=== PATIENT | male | born 1975 | race Two or more races ===

== ENCOUNTER 2018-09-19 12:24 | Inpatient (IN) | payer OTHER, BC ==
[2018-09-19] MEDS ORDERED: Ondansetron 4 MG/2 ML SDV IVPUSH ONE (12:31)
[2018-09-19] MEDS ORDERED: Sodium Chloride 0.9% 2.5 ML Syringe FLUSH PRN (12:31)
[2018-09-19] MEDS ORDERED: HYDROmorphone 2 MG/ML Syringe IVPUSH ONE ×2 (12:31→14:28)
[2018-09-19] MEDS ORDERED: Sodium Chloride 0.9% 10 ML Syringe FLUSH PRN (12:31)
[2018-09-19] MEDS ORDERED: diazePAM 5 MG/ML MDV IV ONE (12:38)
[2018-09-19 13:46] LABS: CHLORIDE,CL 103 mmol/L (98-107); SODIUM,NA 141 mmol/L (136-148)
--- NOTE | 2018-09-19 13:47 | CT ---
EXAMINATION: Non contrast CT head. Coronal and sagittal reformats. HISTORY: Pain FINDINGS: No evidence of intra or extra axial hemorrhage, mass, midline shift, hydrocephalus or edema. No hypoattenuation changes in the major vascular territories to suggest acute infarct. No abnormal intracranial calcifications are detected. No evidence of substantial vascular calcifications. Paranasal sinuses and mastoid air cells are well aerated without substantial findings. Pituitary fossa appears unremarkable. Orbits and globes are symmetric. Calvarium is intact. No evidence of skull fracture. IMPRESSION: No acute intracranial findings.
--- NOTE | 2018-09-19 13:49 | CT ---
EXAMINATION: CT cervical spine HISTORY: Pain COMPARISON: None TECHNIQUE: Axial CT imaging obtained through the cervical spine without contrast. Coronal and sagittal reconstructions obtained. FINDINGS: The cervical spinal alignment is normal. The vertebral body heights and disc spaces appear well-maintained. Bone mineralization is normal. No fracture or acute osseous abnormality. The lung apices are clear paravertebral soft tissues are normal. IMPRESSION: 1. No acute cervical spinal abnormality.
--- NOTE | 2018-09-19 13:50 | CR ---
EXAMINATION: Portable chest radiograph. HISTORY: Shortness of breath. FINDINGS: The trachea is midline. The cardiomediastinal silhouette is within normal limits. No pulmonary infiltrates, effusions or pneumothorax. Mild bibasilar atelectasis. Osseous structures appear unremarkable. IMPRESSION: No acute cardiopulmonary process.
[2018-09-19] MEDS ORDERED: HYDROmorphone 1 MG/ML Syringe ONE ×2 (13:55→15:25)
[2018-09-19] MEDS ORDERED: HYDROmorphone 1 MG/ML Syringe IVPUSH ONE ×2 (13:59→15:26)
--- NOTE | 2018-09-19 14:13 | EDM.PDOC ---
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 He remembers the incident and does not think he lost consciousness. Abrasion over his right eye and severe pain over his right hip. He denies any chest pain or abdominal pain. Review of systems: As per history of present illness and below otherwise all systems reviewed and negative. Past medical history: As per history of present illness and as reviewed below otherwise noncontributory. Surgical history: As per history of present illness and as reviewed below otherwise noncontributory. Social history: No reported history of drug or alcohol abuse. Family history: As per history of present illness and as reviewed below otherwise noncontributory. Physical exam: General: Well developed, well nourished in NAD patient on a backboard laying left side down HEENT: superficial laceration over right eyebrow, normocephalic, pupils reactive , negative for conjunctival pallor or scleral icterus, mucous membranes moist, throat clear, neck supple, nontender, trachea midline. Lungs: Clear to auscultation, breath sounds equal bilaterally, chest nontender. Heart: S1S2, regular, negative for clicks, rubs, or JVD. Abdomen: NABS, Soft, nondistended, nontender. Negative for masses or hepatosplenomegaly. Negative for costovertebral tenderness. Pelvis: Stable nontender. Genitourinary: Deferred. Rectal: Deferred. Extremities: Tenderness of right hip with any movement, distal pulses are palpable, right wrist mild tenderness and swellling, negative for cords or calf pain. Neurovascular unremarkable. Neuro: Awake, alert, oriented. Cranial nerves II through XII unremarkable. Cerebellum unremarkable. Motor and sensory unremarkable throughout. Exam nonfocal. Skin:warm and dry Diagnostics: X-ray chest, pelvis, r femur, right hip, right wrist, CT head and neck, CBC, chemistry, UA Therapeutics: Dilaudid, Valium ED Course: Stable Impression: fall, Right hip fracture, facial laceration, right wrist fracture Prescriptions: Plan: admit to Dr. Vazquez for trauma, Dr. Issa also notified and will treat. Definitive disposition and diagnosis as appropriate pending reevaluation and review of above. Treatments PUBLICITY PERSON: Reports: IV/IO, Other (see below) Other Treatments PUBLICITY PERSON: 50mcg IV Fentanyl Right Hand, Right upper leg Pain Score (Numeric/FACES): 10 - Related Data Allergies Allergy/AdvReac Type Severity Reaction Status Date / Time No Known Allergies Allergy Verified 09/19/18 12:31 Home Meds: Home Meds . [No Known Home Meds] 12/25/13 [History] Past Medical History - Past Health History Medical/Surgical History: Denies Medical/Surgical History - Infectious Disease History Infectious Disease History: Reports: None Social & Family History - Family History Family Medical History: Noncontributory - Tobacco Use Smoking Status *Q: Former Smoker Years of Tobacco use: 30 Packs/Tins Daily: 1 Used Tobacco, but Quit: Yes Month/Year Tobacco Last Used: 3 months ago - Recreational Drug Use Recreational Drug Use: No Review of Systems - Review of Systems Review Of Systems: ROS reveals no pertinent complaints other than HPI. ED EXAM, GENERAL - Physical Exam Exam: See Below (See history of present illness) Course - Vital Signs Last Recorded V/S: Last Vital Signs Temp 97.2 F 09/19/18 17:59 Pulse 110 H 09/19/18 18:39 Resp 16 09/19/18 18:39 BP 128/68 09/19/18 18:39 Pulse Ox 96 09/19/18 18:39 - Orders/Labs/Meds Orders: Active Orders 24 hr Category Date Time Status Activity as Tolerated [RC] .Routine Care 09/19/18 15:07 Active Antiembolic Devices [RC] PER UNIT ROUTINE Care 09/19/18 15:07 Active Cardiac Monitoring [RC] . DIRECTED Care 09/19/18 12:33 Active Intake and Output [RC] ASDIRECTED Care 09/19/18 15:02 Active Neurovascular Check [RC] Q4HR Care 09/19/18 15:02 Active Notify Provider Vital Signs [RC] ASDIRECTED Care 09/19/18 15:07 Active Vital Signs [RC] Q4H Care 09/19/18 15:02 Active PT Evaluation and Treatment [CONS] Routine Cons 09/20/18 09:00 Active HEMOGLOBIN/HEMATOCRIT,HH [HEME] AM Lab 09/20/18 05:11 Ordered HEMOGLOBIN/HEMATOCRIT,HH [HEME] AM Lab 09/21/18 05:11 Ordered UA W/MICROSCOPIC [URIN] Stat Lab 09/19/18 12:35 Ordered Acetaminophen/HYDROcodone [Portia 325-10 MG] Med 09/19/18 15:07 Active 1 - 2 tab PO Q4H PRN Docusate Sodium [Colace] Med 09/19/18 21:00 Active 100 mg PO BID HYDROmorphone [Dilaudid] Med 09/19/18 15:07 Active 0.5 - 1 mg IVPUSH Q3H PRN Ketorolac [Toradol] Med 09/19/18 15:15 Active 30 mg IVPUSH Q6H Lactated Ringers [Ringers, Lactated] 1,000 ml Med 09/19/18 15:15 Active IV ASDIRECTED Lactated Ringers [Ringers, Lactated] 1,000 ml Med 09/19/18 15:30 Active IV ASDIRECTED Ondansetron [Zofran] Med 09/19/18 15:07 Active 4 mg IV Q8HR PRN Sodium Chloride 0.9% [Saline Flush] Med 09/19/18 12:31 Active 10 ml FLUSH ASDIRECTED PRN Sodium Chloride 0.9% [Saline Flush] Med 09/19/18 12:31 Active 2.5 ml FLUSH ASDIRECTED PRN Antiembolic Hose [OM.PC] Routine Oth 09/19/18 15:02 Ordered Ice Therapy [OM.PC] Routine Oth 09/19/18 15:02 Ordered Obtain Home Medication List [OM.PC] Routine Oth 09/19/18 15:02 Ordered Saline Lock Insert [OM.PC] Stat Oth 09/19/18 12:31 Ordered Sequential Compression Device [OM.PC] Routine Oth 09/19/18 15:02 Ordered Medication Orders Hydrocodone Bitart/Acetaminophen (Portia 325-10 Mg) 1 - 2 tab PO Q4H PRN PRN Reason: Pain Docusate Sodium (Colace) 100 mg PO BID JOSE Fentanyl (Sublimaze) 50 mcg IVPUSH Q5M PRN PRN Reason: Pain (severe 7-10) Stop: 09/20/18 18:02 Hydromorphone HCl (Dilaudid) 0.5 - 1 mg IVPUSH Q3H PRN PRN Reason: Pain Lactated Ringer's (Ringers, Lactated) 1,000 mls @ 125 mls/hr IV ASDIRECTED [facility] Last Admin: 09/19/18 15:36 Dose: 125 mls/hr Lactated Ringer's (Ringers, Lactated) 1,000 mls @ 125 mls/hr IV ASDIRECTED [facility] Cefazolin Sodium/Dextrose 2 gm (/ Premix) 50 mls @ 100 mls/hr IV Q8HR [facility] Stop: 09/20/18 06:29 Ketorolac Tromethamine (Toradol) 30 mg IVPUSH Q6H [facility] Last Admin: 09/19/18 15:38 Dose: Ondansetron HCl (Zofran) 4 mg IV Q8HR PRN PRN Reason: NAUSEA/VOMITING Sodium Chloride (Saline Flush) 10 ml FLUSH ASDIRECTED PRN PRN Reason: Keep Vein Open Last Admin: 09/19/18 12:43 Dose: 10 ml Sodium Chloride (Saline Flush) 2.5 ml FLUSH ASDIRECTED PRN PRN Reason: Keep Vein Open Last Admin: 09/19/18 12:43 Dose: 2.5 ml Labs: Laboratory Tests 09/19/18 09/19/18 Range/Units 12:42 12:42 WBC 10.37 (4.0-11.0) K/uL RBC 4.87 (4.50-5.90) M/uL Hgb 14.9 (13.0-17.0) g/dL Hct 43.1 (38.0-50.0) % MCV 88.5 (80.0-98.0) fL MCH 30.6 (27.0-32.0) pg MCHC 34.6 (31.0-37.0) g/dL RDW Std Deviation 39.8 (28.0-62.0) fl RDW Coeff of Demetrius 13 (11.0-15.0) % Plt Count 176 (150-400) K/uL MPV 10.20 (7.40-12.00) fL Add Manual Diff YES Neutrophils % (Manual) 49 (48.0-80.0) % Band Neutrophils % 1 % Lymphocytes % (Manual) 40 (16.0-40.0) % Monocytes % (Manual) 8 (0.0-15.0) % Eosinophils % (Manual) 1 (0.0-7.0) % Myelocytes % 1 % Nucleated RBC % 0.0 /100WBC Absolute Seg Neuts 5.1 (1.4-5.7) Band Neutrophils # 0.1 Lymphocytes # (Manual) 4.1 H (0.6-2.4) Monocytes # (Manual) 0.8 (0.0-0.8) Eosinophils # (Manual) 0.1 (0.0-0.7) Absolute Myelocytes 0.1 Nucleated RBCs # 0 K/uL Sodium 141 (136-148) mmol/L Potassium 3.8 (3.5-5.1) mmol/L Chloride 103 (98-107) mmol/L Carbon Dioxide 25.2 (21.0-32.0) mmol/L BUN 13 (7.0-18.0) mg/dL Creatinine 0.9 (0.8-1.3) mg/dL Est Cr Clr Drug Dosing 109.27 mL/min Estimated GFR (MDRD) > 60.0 ml/min Glucose 98 (74-106) mg/dL Calcium 8.7 (8.5-10.1) mg/dL Total Bilirubin 0.6 (0.2-1.0) mg/dL AST 44 H (15-37) IU/L ALT 88 H (14-63) IU/L Alkaline Phosphatase 43 L (46-116) U/L Total Protein 7.0 (6.4-8.2) g/dL Albumin 4.1 (3.4-5.0) g/dL Globulin 2.9 (2.6-4.0) g/dL Albumin/Globulin Ratio 1.4 (0.9-1.6) Meds: Medications Generic Name Dose Route Start Last Admin Trade Name Freq PRN Reason Stop Dose Admin Hydrocodone Bitart/Acetaminophen 1 - 2 tab 09/19/18 15:07 Portia 325-10 Mg PO Q4H PRN Pain Docusate Sodium 100 mg 09/19/18 21:00 Colace PO BID JOSE Fentanyl 50 mcg 09/19/18 18:02 Sublimaze IVPUSH 09/20/18 18:02 Q5M PRN Pain (severe 7-10) Hydromorphone HCl 0.5 - 1 mg 05/06/19 15:07 Dilaudid IVPUSH Q3H PRN Pain Lactated Ringer's 1,000 mls @ 125 mls/hr 09/19/18 15:15 09/19/18 15:36 Ringers, Lactated IV 125 mls/hr ASDIRECTED JOSE Administration Lactated Ringer's 1,000 mls @ 125 mls/hr 09/19/18 15:30 Ringers, Lactated IV ASDIRECTED JOSE Cefazolin Sodium/Dextrose 2 gm 50 mls @ 100 mls/hr 09/19/18 21:00 / Premix IV 09/20/18 06:29 Q8HR JOSE Ketorolac Tromethamine 30 mg 09/19/18 15:15 09/19/18 15:38 Toradol IVPUSH Not Given Q6H JOSE Ondansetron HCl 4 mg 09/19/18 15:07 Zofran IV Q8HR PRN NAUSEA/VOMITING Sodium Chloride 10 ml 09/19/18 12:31 09/19/18 12:43 Saline Flush FLUSH 10 ml ASDIRECTED PRN Administration Keep Vein Open Sodium Chloride 2.5 ml 09/19/18 12:31 09/19/18 12:43 Saline Flush FLUSH 2.5 ml ASDIRECTED PRN Administration Keep Vein Open Discontinued Medications Generic Name Dose Route Start Last Admin Trade Name Freq PRN Reason Stop Dose Admin Diazepam 5 mg 09/19/18 12:38 09/19/18 12:45 Valium IV 09/19/18 12:39 5 mg ONETIME ONE Administration Fentanyl Confirm 09/19/18 15:06 Sublimaze Administered 09/19/18 15:07 Dose 250 mcg .ROUTE .STK-MED ONE Hydromorphone HCl 1 mg 09/19/18 12:31 09/19/18 12:39 Dilaudid IVPUSH 09/19/18 12:32 1 mg ONETIME ONE Administration Hydromorphone HCl Confirm 09/19/18 13:55 09/19/18 14:00 Dilaudid Administered 09/19/18 13:56 Not Given Dose 1 mg .ROUTE .STK-MED ONE Hydromorphone HCl 1 mg 09/19/18 13:59 09/19/18 14:00 Dilaudid IVPUSH 09/19/18 14:00 1 mg ONETIME ONE Administration Hydromorphone HCl 1 mg 09/19/18 14:28 09/19/18 14:35 Dilaudid IVPUSH 09/19/18 14:29 1 mg ONETIME ONE Administration Hydromorphone HCl 1 mg 09/19/18 15:26 09/19/18 15:30 Dilaudid IVPUSH 09/19/18 15:27 1 mg ONETIME ONE Administration Hydromorphone HCl Confirm 09/19/18 15:25 09/19/18 15:37 Dilaudid Administered 09/19/18 15:26 Not Given Dose 1 mg .ROUTE .STK-MED ONE Lidocaine HCl Confirm 09/19/18 14:51 09/19/18 15:38 Xylocaine-Mpf 1% Administered 09/19/18 14:52 Not Given Dose 5 mls @ as directed .ROUTE .STK-MED ONE Cefazolin Sodium/Dextrose 2 gm 50 mls @ 100 mls/hr 09/19/18 15:07 09/19/18 15 :32 / Premix IV 09/19/18 15:36 100 mls/hr ONETIME ONE Administration Cefazolin Sodium/Dextrose 2 gm 50 mls @ 100 mls/hr 09/19/18 22:00 / Premix IV 09/20/18 14:29 Q8HR JOSE Lidocaine Confirm 09/19/18 15:05 Xylocaine-Mpf 2% Administered 09/19/18 15:06 Dose 5 ml .ROUTE .STK-MED ONE Lidocaine HCl 10 ml 09/19/18 14:51 09/19/18 15:23 Xylocaine-Mpf 1% INJECT 09/19/18 14:52 10 ml ONETIME ONE Administration Midazolam HCl Confirm 09/19/18 15:06 Versed 1 Mg/Ml Administered 09/19/18 15:07 Dose 2 mg .ROUTE .STK-MED ONE Ondansetron HCl 4 mg 09/19/18 12:31 09/19/18 12:39 Zofran IVPUSH 09/19/18 12:32 4 mg ONETIME ONE Administration Ondansetron HCl Confirm 09/19/18 15:05 Zofran Administered 09/19/18 15:06 Dose 4 mg .ROUTE .STK-MED ONE Phenylephrine HCl Confirm 09/19/18 16:29 Phenylephrine In Ns 100 Mcg/Ml Administered 09/19/18 16:30 Dose 1 mg .ROUTE .STK-MED ONE Propofol Confirm 09/19/18 15:06 Diprivan 20 Ml Administered 09/19/18 15:07 Dose 200 mg .ROUTE .STK-MED ONE Rocuronium [place] Confirm 09/19/18 15:05 Zemuron Administered 09/19/18 15:06 Dose 100 mg .ROUTE .STK-MED ONE Succinylcholine Chloride Confirm 09/19/18 15:05 Succinylcholine Chloride Administered 09/19/18 15:06 Dose 200 mg .ROUTE .STK-MED ONE Departure - Departure Time of Disposition: 19:12 Disposition: Admitted As Inpatient 66 Condition: Good Clinical Impression: Hip fracture Qualifiers: Encounter type: initial encounter Fracture type: closed Laterality: right Qualified Code(s): S72.001A - Fracture of unspecified part of neck of right femur, initial encounter for closed fracture Right wrist fracture Qualifiers: Encounter type: initial encounter Fracture type: closed Qualified Code(s): S62.101A - Fracture of unspecified carpal bone, right wrist, initial encounter for closed fracture Closed right femoral fracture Qualifiers: Encounter type: initial encounter Femur location: intertrochanteric Fracture alignment: displaced Qualified Code(s): S72.141A - Displaced intertrochanteric fracture of right femur, initial encounter for closed fracture - Discharge Information *PRESCRIPTION DRUG MONITORING PROGRAM REVIEWED*: No *COPY OF PRESCRIPTION DRUG MONITORING REPORT IN PATIENT PADMINI: No - My Orders Last 24 Hours: My Active Orders 09/19/18 12:31 Sodium Chloride 0.9% [Saline Flush] 10 ml FLUSH ASDIRECTED PRN Sodium Chloride 0.9% [Saline Flush] 2.5 ml FLUSH ASDIRECTED PRN Saline Lock Insert [OM.PC] Stat 09/19/18 12:33 Cardiac Monitoring [RC] . DIRECTED 09/19/18 12:35 UA W/MICROSCOPIC [URIN] Stat - Assessment/Plan Last 24 Hours: My Active Orders 09/19/18 12:31 Sodium Chloride 0.9% [Saline Flush] 10 ml FLUSH ASDIRECTED PRN Sodium Chloride 0.9% [Saline Flush] 2.5 ml FLUSH ASDIRECTED PRN Saline Lock Insert [OM.PC] Stat 09/19/18 12:33 Cardiac Monitoring [RC] . DIRECTED 09/19/18 12:35 UA W/MICROSCOPIC [URIN] Stat
--- NOTE | 2018-09-19 14:37 | CR ---
EXAMINATION: Pelvis and right femur HISTORY: Fall COMPARISON: None TECHNIQUE: AP pelvis and single view of the right femur FINDINGS: There is an impacted proximal right femur fracture noted within the intertrochanteric component. Possible small avulsed greater trochanteric component as well. The right hip joint space is grossly preserved. SI joints are symmetric. The iliopectineal lines are intact. Bone mineralization is otherwise normal. IMPRESSION: 1. Impacted proximal right femur fracture extending from the proximal diaphysis into the intertrochanteric region.
--- NOTE | 2018-09-19 14:41 | EDM.PDOC ---
ED HPI GENERAL MEDICAL PROBLEM - General Source of Information: Reports: Patient History Limitations: Reports: No Limitations, Language Barrier (Patient is from [place] and does speak estonian but is a little limited. ) - History of Present Illness Onset: Today, Sudden Duration: Hour(s):, Other (Constant pain in right femur. ) Location: Reports: Face, Upper Extremity, Right, Lower Extremity, Right Quality: Reports: Sharp, Stabbing Severity: Severe Worsens with: Reports: Movement Context: Reports: Trauma Associated Symptoms: Reports: Other (Pain to right wrist and left hand) Treatments CLINICAL ADMISSIONS MANAGER: Reports: IV/IO, Other (see below) Other Treatments CLINICAL ADMISSIONS MANAGER: 50mcg IV Fentanyl Right Hand, Right upper leg Pain Score (Numeric/FACES): 5 - General Chief Complaint: Trauma Stated Complaint: FELL FROM 6FT+ Time Seen by Provider: 09/19/18 12:27 - History of Present Illness INITIAL COMMENTS - FREE TEXT/NARRATIVE: History of present illness: []Patient fell 8-12 feet at work 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 He remembers the incident and does not think he lost consciousness. Abrasion over his right eye and severe pain over his right hip. He denies any chest pain or abdominal pain. Review of systems: As per history of present illness and below otherwise all systems reviewed and negative. Past medical history: As per history of present illness and as reviewed below otherwise noncontributory. Surgical history: As per history of present illness and as reviewed below otherwise noncontributory. Social history: No reported history of drug or alcohol abuse. Family history: As per history of present illness and as reviewed below otherwise noncontributory. Physical exam: General: Well developed, well nourished in NAD patient on a backboard laying left side down HEENT: Abrasion over right eyebrow, normocephalic, pupils reactive, negative for conjunctival pallor or scleral icterus, mucous membranes moist, throat clear , neck supple, nontender, trachea midline. Lungs: Clear to auscultation, breath sounds equal bilaterally, chest nontender. Heart: S1S2, regular, negative for clicks, rubs, or JVD. Abdomen: NABS, Soft, nondistended, nontender. Negative for masses or hepatosplenomegaly. Negative for costovertebral tenderness. Pelvis: Stable nontender. Genitourinary: Deferred. Rectal: Deferred. Extremities: Tenderness of right hip with any movement, distal pulses are palpable, negative for cords or calf pain. Neurovascular unremarkable. Neuro: Awake, alert, oriented. Cranial nerves II through XII unremarkable. Cerebellum unremarkable. Motor and sensory unremarkable throughout. Exam nonfocal. Skin:warm and dry Diagnostics: X-ray chest, pelvis, femur, right hip, CT head and neck, CBC, chemistry, UA Therapeutics: Dilaudid, Valium ED Course: Stable Impression: fall, Right hip fracture, facial abrasions Prescriptions: Plan: It to Dr. Vazquez for trauma, Dr. Issa also notified and will treat. Definitive disposition and diagnosis as appropriate pending reevaluation and review of above. (River Marcos Jr) - Related Data Allergies Allergy/AdvReac Type Severity Reaction Status Date / Time No Known Allergies Allergy Verified 09/19/18 12:31 Home Meds: Home Meds . [No Known Home Meds] 12/25/13 [History] Past Medical History - Past Health History Medical/Surgical History: Denies Medical/Surgical History (Patient and deny any past medcial diagnoses or conditions other than GERD and left knee pain intermittently.) - Infectious Disease History Infectious Disease History: Reports: None Social & Family History - Family History Family Medical History: Noncontributory - Tobacco Use Smoking Status *Q: Former Smoker (Quit smoking 3 months ago.) Years of Tobacco use: 30 Packs/Tins Daily: 1 Used Tobacco, but Quit: Yes Month/Year Tobacco Last Used: 3 months ago - Alcohol Use Alcohol Use Frequency: Not Used in Over 2 Months - Recreational Drug Use Recreational Drug Use: No Drug Use in Last 12 Months: No - Living Situation & Occupation 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) Review of Systems - Review of Systems Review Of Systems: See Below Constitutional: Reports: No Symptoms Respiratory: Reports: No Symptoms Cardiovascular: Reports: No Symptoms Genitourinary: Reports: No Symptoms Musculoskeletal: Reports: Other (tenderness to left knee intermittently) Skin: Reports: Other (Laceration to right eyebrow) Neurological: Reports: No Symptoms ED EXAM, GENERAL - Physical Exam Exam: See Below Exam Limited By: No Limitations General Appearance: Alert, Moderate Distress Ears: Normal External Exam, Hearing Grossly Normal Nose: Normal Inspection Throat/Mouth: No Airway Compromise Head: Other (Laceration to right eyebrow approximately 2-3 cm.) Neck: Supple, Non-Tender Respiratory/Chest: No Respiratory Distress, Lungs Clear Cardiovascular: Normal Peripheral Pulses, Regular Rate, Rhythm Peripheral Pulses: 2+: Radial (L), Radial (R), Dorsalis Pedis (L), Dorsalis Pedis (R) GI/Abdominal: Soft, Non-Tender, No Distention Extremities: Other (Tenderness to right wrist with active ROM and palpation. No obvious deformity. Swelling around the right proximal heip but no ecchymosis or open wounds.. Other extremities on left side are atraumatic in appearance. 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 He remembers the incident and does not think he lost consciousness. Abrasion over his right eye and severe pain over his right hip. He denies any chest pain or abdominal pain. Review of systems: As per history of present illness and below otherwise all systems reviewed and negative. Past medical history: As per history of present illness and as reviewed below otherwise noncontributory. Surgical history: As per history of present illness and as reviewed below otherwise noncontributory. Social history: No reported history of drug or alcohol abuse. Family history: As per history of present illness and as reviewed below otherwise noncontributory. Physical exam: General: Well developed, well nourished in NAD patient on a backboard laying left side down HEENT: Abrasion over right eyebrow, normocephalic, pupils reactive, negative for conjunctival pallor or scleral icterus, mucous membranes moist, throat clear , neck supple, nontender, trachea midline. Lungs: Clear to auscultation, breath sounds equal bilaterally, chest nontender. Heart: S1S2, regular, negative for clicks, rubs, or JVD. Abdomen: NABS, Soft, nondistended, nontender. Negative for masses or hepatosplenomegaly. Negative for costovertebral tenderness. Pelvis: Stable nontender. Genitourinary: Deferred. Rectal: Deferred. Extremities: Tenderness of right hip with any movement, distal pulses are palpable, negative for cords or calf pain. Neurovascular unremarkable. Neuro: Awake, alert, oriented. Cranial nerves II through XII unremarkable. Cerebellum unremarkable. Motor and sensory unremarkable throughout. Exam nonfocal. Skin:warm and dry Diagnostics: X-ray chest, pelvis, femur, right hip, CT head and neck, CBC, chemistry, UA Therapeutics: Dilaudid, Valium ED Course: Stable Impression: fall, Right hip fracture, facial abrasions Prescriptions: Plan: It to Dr. Vazquez for trauma, Dr. Issa also notified and will treat. Definitive disposition and diagnosis as appropriate pending reevaluation and review of above. (River Marcos Jr) - Vital Signs Last Recorded V/S: Last Vital Signs Temp 98.7 F 09/19/18 12:26 Pulse 96 09/19/18 12:26 Resp 18 09/19/18 12:26 BP 137/77 09/19/18 12:26 Pulse Ox 96 09/19/18 12:26 - Orders/Labs/Meds Orders: Active Orders 24 hr Category Date Time Status Activity as Tolerated [RC] .Routine Care 09/19/18 15:07 Ordered Antiembolic Devices [RC] PER UNIT ROUTINE Care 09/19/18 15:07 Ordered Cardiac Monitoring [RC] . DIRECTED Care 09/19/18 12:33 Active Intake and Output [RC] ASDIRECTED Care 09/19/18 15:02 Ordered Neurovascular Check [RC] Q4HR Care 09/19/18 15:02 Ordered Notify Provider Vital Signs [RC] ASDIRECTED Care 09/19/18 15:07 Ordered Vital Signs [RC] Q4H Care 09/19/18 15:02 Ordered PT Evaluation and Treatment [CONS] Routine Cons 09/20/18 09:00 Active Regular Diet [DIET] Diet 09/19/18 Dinner Active HEMOGLOBIN/HEMATOCRIT,HH [HEME] AM Lab 09/20/18 05:11 Ordered HEMOGLOBIN/HEMATOCRIT,HH [HEME] AM Lab 09/21/18 05:11 Ordered UA W/MICROSCOPIC [URIN] Stat Lab 09/19/18 12:35 Ordered Acetaminophen/HYDROcodone [[place] 325-10 MG] Med 09/19/18 15:07 Ordered 1 - 2 tab PO Q4H PRN Docusate Sodium [Colace] Med 09/19/18 21:00 Ordered 100 mg PO BID HYDROmorphone [Dilaudid] Med 09/19/18 15:07 Ordered 0.5 - 1 mg IVPUSH Q3H PRN Ketorolac [Toradol] Med 09/19/18 15:15 Ordered 30 mg IVPUSH Q6H Lactated Ringers @ 125 MLS/HR(1000ml) Med 09/19/18 15:15 Ordered Lactated Ringers [Ringers, Lactated] 1,000 ml IV ASDIRECTED Ondansetron [Zofran] Med 09/19/18 15:07 Ordered 4 mg IV Q8HR PRN Sodium Chloride 0.9% [Saline Flush] Med 09/19/18 12:31 Active 10 ml FLUSH ASDIRECTED PRN Sodium Chloride 0.9% [Saline Flush] Med 09/19/18 12:31 Active 2.5 ml FLUSH ASDIRECTED PRN ceFAZolin [Ancef] 2 gm Med 09/19/18 15:07 Ordered Premix Bag 1 bag IV ONETIME ceFAZolin [Ancef] 2 gm Med 09/19/18 22:00 Ordered Premix Bag 1 bag IV Q8HR Antiembolic Hose [OM.PC] Routine Oth 09/19/18 15:02 Ordered Ice Therapy [OM.PC] Routine Oth 09/19/18 15:02 Ordered Obtain Home Medication List [OM.PC] Routine Oth 09/19/18 15:02 Ordered Saline Lock Insert [OM.PC] Stat Oth 09/19/18 12:31 Ordered Sequential Compression Device [OM.PC] Routine Oth 09/19/18 15:02 Ordered Medication Orders Hydrocodone Bitart/Acetaminophen ([place] 325-10 Mg) 1 - 2 tab PO Q4H PRN PRN Reason: Pain Docusate Sodium (Colace) 100 mg PO BID JOSE Hydromorphone HCl (Dilaudid) 0.5 - 1 mg IVPUSH Q3H PRN PRN Reason: Pain Cefazolin Sodium/Dextrose 2 gm (/ Premix) 50 mls @ 100 mls/hr IV ONETIME ONE Stop: 09/19/18 15:36 Cefazolin Sodium/Dextrose 2 gm (/ Premix) 50 mls @ 100 mls/hr IV Q8HR JOSE Stop: 09/20/18 14:29 Lactated Ringer's (Ringers, Lactated) 1,000 mls @ 125 mls/hr IV ASDIRECTED JOSE Ketorolac Tromethamine (Toradol) 30 mg IVPUSH Q6H JOSE Ondansetron HCl (Zofran) 4 mg IV Q8HR PRN PRN Reason: NAUSEA/VOMITING Sodium Chloride (Saline Flush) 10 ml FLUSH ASDIRECTED PRN PRN Reason: Keep Vein Open Last Admin: 09/19/18 12:43 Dose: 10 ml Sodium Chloride (Saline Flush) 2.5 ml FLUSH ASDIRECTED PRN PRN Reason: Keep Vein Open Last Admin: 09/19/18 12:43 Dose: 2.5 ml Labs: Laboratory Tests 09/19/18 09/19/18 Range/Units 12:42 12:42 WBC 10.37 (4.0-11.0) K/uL RBC 4.87 (4.50-5.90) M/uL Hgb 14.9 (13.0-17.0) g/dL Hct 43.1 (38.0-50.0) % MCV 88.5 (80.0-98.0) fL MCH 30.6 (27.0-32.0) pg MCHC 34.6 (31.0-37.0) g/dL RDW Std Deviation 39.8 (28.0-62.0) fl RDW Coeff of Demetrius 13 (11.0-15.0) % Plt Count 176 (150-400) K/uL MPV 10.20 (7.40-12.00) fL Add Manual Diff YES Neutrophils % (Manual) 49 (48.0-80.0) % Band Neutrophils % 1 % Lymphocytes % (Manual) 40 (16.0-40.0) % Monocytes % (Manual) 8 (0.0-15.0) % Eosinophils % (Manual) 1 (0.0-7.0) % Myelocytes % 1 % Nucleated RBC % 0.0 /100WBC Absolute Seg Neuts 5.1 (1.4-5.7) Band Neutrophils # 0.1 Lymphocytes # (Manual) 4.1 H (0.6-2.4) Monocytes # (Manual) 0.8 (0.0-0.8) Eosinophils # (Manual) 0.1 (0.0-0.7) Absolute Myelocytes 0.1 Nucleated RBCs # 0 K/uL Sodium 141 (136-148) mmol/L Potassium 3.8 (3.5-5.1) mmol/L Chloride 103 (98-107) mmol/L Carbon Dioxide 25.2 (21.0-32.0) mmol/L BUN 13 (7.0-18.0) mg/dL Creatinine 0.9 (0.8-1.3) mg/dL Est Cr Clr Drug Dosing 109.27 mL/min Estimated GFR (MDRD) > 60.0 ml/min Glucose 98 (74-106) mg/dL Calcium 8.7 (8.5-10.1) mg/dL Total Bilirubin 0.6 (0.2-1.0) mg/dL AST 44 H (15-37) IU/L ALT 88 H (14-63) IU/L Alkaline Phosphatase 43 L (46-116) U/L Total Protein 7.0 (6.4-8.2) g/dL Albumin 4.1 (3.4-5.0) g/dL Globulin 2.9 (2.6-4.0) g/dL Albumin/Globulin Ratio 1.4 (0.9-1.6) Meds: Medications Generic Name Dose Route Start Last Admin Trade Name Freq PRN Reason Stop Dose Admin Hydrocodone Bitart/Acetaminophen 1 - 2 tab 09/19/18 15:07 [place] 325-10 Mg PO Q4H PRN Pain Docusate Sodium 100 mg 09/19/18 21:00 Colace PO BID JOSE Hydromorphone HCl 0.5 - 1 mg 09/19/18 15:07 Dilaudid IVPUSH Q3H PRN Pain Cefazolin Sodium/Dextrose 2 gm 50 mls @ 100 mls/hr 09/19/18 15:07 / Premix IV 09/19/18 15:36 ONETIME ONE Cefazolin Sodium/Dextrose 2 gm 50 mls @ 100 mls/hr 09/19/18 22:00 / Premix IV 09/20/18 14:29 Q8HR JOSE Lactated Ringer's 1,000 mls @ 125 mls/hr 09/19/18 15:15 Ringers, Lactated IV ASDIRECTED JOSE Ketorolac Tromethamine 30 mg 09/19/18 15:15 Toradol IVPUSH Q6H JOSE Ondansetron HCl 4 mg 09/19/18 15:07 Zofran IV Q8HR PRN NAUSEA/VOMITING Sodium Chloride 10 ml 09/19/18 12:31 09/19/18 12:43 Saline Flush FLUSH 10 ml ASDIRECTED PRN Administration Keep Vein Open Sodium Chloride 2.5 ml 09/19/18 12:31 09/19/18 12:43 Saline Flush FLUSH 2.5 ml ASDIRECTED PRN Administration Keep Vein Open Discontinued Medications Generic Name Dose Route Start Last Admin Trade Name Freq PRN Reason Stop Dose Admin Diazepam 5 mg 09/19/18 12:38 09/19/18 12:45 Valium IV 09/19/18 12:39 5 mg ONETIME ONE Administration Fentanyl Confirm 09/19/18 15:06 Sublimaze Administered 09/19/18 15:07 Dose 250 mcg .ROUTE .STK-MED ONE Hydromorphone HCl 1 mg 09/19/18 12:31 09/19/18 12:39 Dilaudid IVPUSH 09/19/18 12:32 1 mg ONETIME ONE Administration Hydromorphone HCl Confirm 09/19/18 13:55 09/19/18 14:00 Dilaudid Administered 09/19/18 13:56 Not Given Dose 1 mg .ROUTE .STK-MED ONE Hydromorphone HCl 1 mg 09/19/18 13:59 09/19/18 14:00 Dilaudid IVPUSH 09/19/18 14:00 1 mg ONETIME ONE Administration Hydromorphone HCl 1 mg 09/19/18 14:28 09/19/18 14:35 Dilaudid IVPUSH 09/19/18 14:29 1 mg ONETIME ONE Administration Lidocaine HCl Confirm 09/19/18 14:51 Xylocaine-Mpf 1% Administered 09/19/18 14:52 Dose 5 mls @ as directed .ROUTE .STK-MED ONE Lidocaine Confirm 09/19/18 15:05 Xylocaine-Mpf 2% Administered 09/19/18 15:06 Dose 5 ml .ROUTE .STK-MED ONE Lidocaine HCl 10 ml 09/19/18 14:51 Xylocaine-Mpf 1% INJECT 09/19/18 14:52 ONETIME ONE Midazolam HCl Confirm 09/19/18 15:06 Versed 1 Mg/Ml Administered 09/19/18 15:07 Dose 2 mg .ROUTE .STK-MED ONE Ondansetron HCl 4 mg 09/19/18 12:31 09/19/18 12:39 Zofran IVPUSH 09/19/18 12:32 4 mg ONETIME ONE Administration Ondansetron HCl Confirm 09/19/18 15:05 Zofran Administered 09/19/18 15:06 Dose 4 mg .ROUTE .STK-MED ONE Propofol Confirm 09/19/18 15:06 Diprivan 20 Ml Administered 09/19/18 15:07 Dose 200 mg .ROUTE .STK-MED ONE Rocuronium [place] Confirm 09/19/18 15:05 Zemuron Administered 09/19/18 15:06 Dose 100 mg .ROUTE .STK-MED ONE Succinylcholine Chloride Confirm 09/19/18 15:05 Succinylcholine Chloride Administered 09/19/18 15:06 Dose 200 mg .ROUTE .STK-MED ONE Departure - Departure Time of Disposition: 15:06 - Departure Disposition: Home, Self-Care 01 Clinical Impression: Hip fracture Qualifiers: Encounter type: initial encounter Fracture type: closed Laterality: right Qualified Code(s): S72.001A - Fracture of unspecified part of neck of right femur, initial encounter for closed fracture Right wrist fracture Qualifiers: Encounter type: initial encounter Fracture type: closed Qualified Code(s): S62.101A - Fracture of unspecified carpal bone, right wrist, initial encounter for closed fracture - Problem List & Annotations (1) Right wrist fracture SNOMED Code(s): 739053398, 655919264 Code(s): S62.101A - FRACTURE OF UNSP CARPAL BONE, RIGHT WRIST, INIT FOR CLOS FX Status: Acute Priority: Medium Current Visit: Yes Qualifiers: Encounter type: initial encounter Fracture type: closed Qualified Code(s) : S62.101A - Fracture of unspecified carpal bone, right wrist, initial encounter for closed fracture (2) Hip fracture SNOMED Code(s): 918692288 Code(s): S72.009A - FRACTURE OF UNSP PART OF NECK OF UNSP FEMUR, INIT Status: Acute Priority: High Current Visit: Yes Qualifiers: Encounter type: initial encounter Fracture type: closed Laterality: right Qualified Code(s): S72.001A - Fracture of unspecified part of neck of right femur, initial encounter for closed fracture - Assessment/Plan Admission H&P: Please use this note as an admission H&P (Use as a consult note for Orthopedic Surgery not an admission H&P.) - My Orders Last 24 Hours: My Active Orders 09/19/18 15:02 Intake and Output [RC] ASDIRECTED Neurovascular Check [RC] Q4HR Vital Signs [RC] Q4H Antiembolic Hose [OM.PC] Routine Ice Therapy [OM.PC] Routine Obtain Home Medication List [OM.PC] Routine Sequential Compression Device [OM.PC] Routine 09/19/18 15:07 Activity as Tolerated [RC] .Routine Antiembolic Devices [RC] PER UNIT ROUTINE Notify Provider Vital Signs [RC] ASDIRECTED Acetaminophen/HYDROcodone [[place] 325-10 MG] 1 - 2 tab PO Q4H PRN HYDROmorphone [Dilaudid] 0.5 - 1 mg IVPUSH Q3H PRN Ondansetron [Zofran] 4 mg IV Q8HR PRN ceFAZolin [Ancef] 2 gm Premix Bag 1 bag IV ONETIME 09/19/18 15:15 Ketorolac [Toradol] 30 mg IVPUSH Q6H Lactated Ringers @ 125 MLS/HR(1000ml) Lactated Ringers [Ringers, Lactated] 1, 000 ml IV ASDIRECTED 09/19/18 21:00 Docusate Sodium [Colace] 100 mg PO BID 09/19/18 22:00 ceFAZolin [Ancef] 2 gm Premix Bag 1 bag IV Q8HR 09/19/18 Dinner Regular Diet [DIET] 09/20/18 05:11 HEMOGLOBIN/HEMATOCRIT,HH [HEME] AM 09/20/18 09:00 PT Evaluation and Treatment [CONS] Routine 09/21/18 05:11 HEMOGLOBIN/HEMATOCRIT,HH [HEME] AM - Assessment/Plan Last 24 Hours: My Active Orders 09/19/18 15:02 Intake and Output [RC] ASDIRECTED Neurovascular Check [RC] Q4HR Vital Signs [RC] Q4H Antiembolic Hose [OM.PC] Routine Ice Therapy [OM.PC] Routine Obtain Home Medication List [OM.PC] Routine Sequential Compression Device [OM.PC] Routine 09/19/18 15:07 Activity as Tolerated [RC] .Routine Antiembolic Devices [RC] PER UNIT ROUTINE Notify Provider Vital Signs [RC] ASDIRECTED Acetaminophen/HYDROcodone [[place] 325-10 MG] 1 - 2 tab PO Q4H PRN HYDROmorphone [Dilaudid] 0.5 - 1 mg IVPUSH Q3H PRN Ondansetron [Zofran] 4 mg IV Q8HR PRN ceFAZolin [Ancef] 2 gm Premix Bag 1 bag IV ONETIME 09/19/18 15:15 Ketorolac [Toradol] 30 mg IVPUSH Q6H Lactated Ringers @ 125 MLS/HR(1000ml) Lactated Ringers [Ringers, Lactated] 1, 000 ml IV ASDIRECTED 09/19/18 21:00 Docusate Sodium [Colace] 100 mg PO BID 09/19/18 22:00 ceFAZolin [Ancef] 2 gm Premix Bag 1 bag IV Q8HR 09/19/18 Dinner Regular Diet [DIET] 09/20/18 05:11 HEMOGLOBIN/HEMATOCRIT,HH [HEME] AM 09/20/18 09:00 PT Evaluation and Treatment [CONS] Routine 09/21/18 05:11 HEMOGLOBIN/HEMATOCRIT,HH [HEME] AM Plan: Patient will be admitted to the trauma service. We will proceed with repair of his right hip fracture today in the OR. He will be able to begin ambulating post operatively. We will obtain a CT scan of his right wrist fracture tomorrow. (River Marcos Jr) 2033 Patient seen and examined. Note above incorporates ED note by Dr. Fernandes along with ortho consult note by Dr. Marcos. Agree with above. Plan for surgical treatment of R femur tonight along with closure of eyebrow laceration R. See my short note for full details. rrk (Lakeshia Issa)
--- NOTE | 2018-09-19 14:49 | CR ---
EXAMINATION: Right wrist HISTORY: Fall COMPARISON: None TECHNIQUE: 3 views FINDINGS/IMPRESSION: There is a nondisplaced intra-articular distal radius fracture identified. There is also a mid right scaphoid fracture noted, nondisplaced. Remaining osseous structures and joint spaces are intact.
--- NOTE | 2018-09-19 14:52 | PCM.SN ---
- Free Text/Narrative Note: Patient seen and examined. For complete history/physical, please refer to the note by Christiano Marcos, PGY-2. He did have a fall of approximately 10 feet earlier today, landing on his right side. X-rays were reviewed which do show a comminuted subtrochanteric fracture of the right femur. I discussed treatment options with the patient and his family. I'm recommending that he undergo closed reduction of the right femur with insertion of intramedullary nail. Procedure and postoperative course was discussed. He also has a deep laceration over the right eye in the eyebrow region. I recommended that he undergo closure of that at the time of surgery as well. Risks of the procedures were discussed which include, but are not limited to, infection, neurovascular injury, stiffness, continued pain, blood clots, need for future surgery, and anesthetic complications. Patient seems to understand these risks and would like to proceed with surgery. Will plan on scheduling it later today. He will also be evaluated by the trauma service. XR of R wrist also reviewed. Show a nondisplaced intra-articular fracture of the distal radius and probable nondisplaced fracture of the scaphoid. Will splint in OR and plan for CT of R wrist tomorrow to evaluate.
[2018-09-19] MEDS ORDERED: Ondansetron 4 MG/2 ML SDV ONE (15:05)
[2018-09-19] MEDS ORDERED: Lidocaine 2% 5 ML SDV ONE (15:05)
[2018-09-19] MEDS ORDERED: Rocuronium 100 MG/10 ML Syringe ONE (15:05)
[2018-09-19] MEDS ORDERED: Propofol 200 MG/20 ML SDV ONE (15:06)
[2018-09-19] MEDS ORDERED: Midazolam 1 MG/ML 2 ML SDV ONE (15:06)
[2018-09-19] MEDS ORDERED: fentaNYL 250 MCG/5 ML SDV ONE (15:06)
[2018-09-19] MEDS ORDERED: ceFAZolin 2 GM in Premix Bag 1 BAG IV ONE (15:07)
[2018-09-19] MEDS ORDERED: Lactated Ringers 1,000 ML IV SCH ×2 (15:15→15:30)
--- NOTE | 2018-09-19 15:26 | PCM.HP ---
H&P History of Present Illness - General Date of Service: 09/19/18 Admit Problem/Dx: Admission Diagnosis/Problem Admission Diagnosis/Problem Replacement of total knee joint Source of Information: Patient History Limitations: Reports: No Limitations - History of Present Illness Initial Comments - Free Text/Narative: Patient is a 43 year old male who fell today at work ~ 10-12 feet onto his right side. There was no LOC. He was brought to the ER c/o right wrist and leg pain. On physical exam his right leg was slightly shorter. He denies any other symptoms. He is otherwise healthy with no surgical history. Right Hand, Right upper leg Pain Score (Numeric/FACES): 5 - Related Data Allergies/Adverse Reactions: Allergies Allergy/AdvReac Type Severity Reaction Status Date / Time No Known Allergies Allergy Verified 09/19/18 12:31 Home Medications: Home Meds . [No Known Home Meds] 12/25/13 [History] Past Medical History - Past Health History Medical/Surgical History: Denies Medical/Surgical History (Patient and deny any past medcial diagnoses or conditions other than GERD and left knee pain intermittently.) - Infectious Disease History Infectious Disease History: Reports: None Social & Family History - Family History Family Medical History: Noncontributory - Tobacco Use Smoking Status *Q: Former Smoker (Quit smoking 3 months ago.) Years of Tobacco use: 30 Packs/Tins Daily: 1 Used Tobacco, but Quit: Yes Month/Year Tobacco Last Used: 3 months ago - Recreational Drug Use Recreational Drug Use: No Drug Use in Last 12 Months: No - Living Situation & Occupation 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) H&P Review of Systems - Review of Systems: Review Of Systems: See Below General: Reports: No Symptoms HEENT: Reports: No Symptoms Pulmonary: Reports: No Symptoms Cardiovascular: Reports: No Symptoms Gastrointestinal: Reports: No Symptoms Genitourinary: Reports: No Symptoms Musculoskeletal: Reports: Leg Pain, Joint Pain (right wrist ) Skin: Reports: Other (laceration to right brow) Psychiatric: Reports: No Symptoms Neurological: Reports: No Symptoms Hematologic/Lymphatic: Reports: No Symptoms Exam - Exam Exam: See Below - Vital Signs Vital Signs: Last Vital Signs Temp 37.1 C 09/19/18 12:26 Pulse 96 09/19/18 12:26 Resp 18 09/19/18 12:26 BP 137/77 09/19/18 12:26 Pulse Ox 96 09/19/18 12:26 Weight: 90.718 kg - Exam General: Alert, Oriented, Cooperative HEENT: Conjunctiva Clear, EACs Clear, EOMI, Hearing Intact, Mucosa Moist & [place] , Nares Patent, Normal Nasal Septum, Posterior Pharynx Clear, Pupils Equal, Pupils Reactive, Other (Complex laceration to right lateral brow ), PERRLA Neck: Supple, Trachea Midline Lungs: Clear to Auscultation, Normal Respiratory Effort Cardiovascular: Regular Rate, Regular Rhythm GI/Abdominal Exam: Soft, Non-Tender, No Organomegaly, No Distention, No Abnormal Bruit, No Mass, Pelvis Stable (Male) Exam: Normal Inspection Rectal (Males) Exam: Deferred Back Exam: Normal Inspection, Full Range of Motion Extremities: Joint Swelling (right wrist ), Other (pain along lateral aspect of right thigh. Right leg is slightly shortened. ) Skin: Warm, Dry, Intact Neurological: Cranial Nerves Intact, Reflexes Equal Bilateral Neuro Extensive - Mental Status: Alert, Oriented x3, Normal Mood/Affect, Normal Cognition Neuro Extensive - Motor, Sensory, Reflexes: Normal Gait, Normal Reflexes Psychiatric: Alert, Normal Affect, Normal Mood - Patient Data Lab Results Last 24 hrs: Laboratory Results - last 24 hr 09/19/18 09/19/18 Range/Units 12:42 12:42 WBC 10.37 (4.0-11.0) K/uL RBC 4.87 (4.50-5.90) M/uL Hgb 14.9 (13.0-17.0) g/dL Hct 43.1 (38.0-50.0) % MCV 88.5 (80.0-98.0) fL MCH 30.6 (27.0-32.0) pg MCHC 34.6 (31.0-37.0) g/dL RDW Std Deviation 39.8 (28.0-62.0) fl RDW Coeff of Demetrius 13 (11.0-15.0) % Plt Count 176 (150-400) K/uL MPV 10.20 (7.40-12.00) fL Add Manual Diff YES Neutrophils % (Manual) 49 (48.0-80.0) % Band Neutrophils % 1 % Lymphocytes % (Manual) 40 (16.0-40.0) % Monocytes % (Manual) 8 (0.0-15.0) % Eosinophils % (Manual) 1 (0.0-7.0) % Myelocytes % 1 % Nucleated RBC % 0.0 /100WBC Absolute Seg Neuts 5.1 (1.4-5.7) Band Neutrophils # 0.1 Lymphocytes # (Manual) 4.1 H (0.6-2.4) Monocytes # (Manual) 0.8 (0.0-0.8) Eosinophils # (Manual) 0.1 (0.0-0.7) Absolute Myelocytes 0.1 Nucleated RBCs # 0 K/uL Sodium 141 (136-148) mmol/L Potassium 3.8 (3.5-5.1) mmol/L Chloride 103 (98-107) mmol/L Carbon Dioxide 25.2 (21.0-32.0) mmol/L BUN 13 (7.0-18.0) mg/dL Creatinine 0.9 (0.8-1.3) mg/dL Est Cr Clr Drug Dosing 109.27 mL/min Estimated GFR (MDRD) > 60.0 ml/min Glucose 98 (74-106) mg/dL Calcium 8.7 (8.5-10.1) mg/dL Total Bilirubin 0.6 (0.2-1.0) mg/dL AST 44 H (15-37) IU/L ALT 88 H (14-63) IU/L Alkaline Phosphatase 43 L (46-116) U/L Total Protein 7.0 (6.4-8.2) g/dL Albumin 4.1 (3.4-5.0) g/dL Globulin 2.9 (2.6-4.0) g/dL Albumin/Globulin Ratio 1.4 (0.9-1.6) Result Diagrams: 09/19/18 12:42 09/19/18 12:42 Problem List Initiated/Reviewed/Updated: Yes Orders Last 24hrs: Active Orders 24 hr Category Date Time Status Activity as Tolerated [RC] .Routine Care 09/19/18 15:07 Active Antiembolic Devices [RC] PER UNIT ROUTINE Care 09/19/18 15:07 Active Cardiac Monitoring [RC] . DIRECTED Care 09/19/18 12:33 Active Intake and Output [RC] ASDIRECTED Care 09/19/18 15:02 Active Neurovascular Check [RC] Q4HR Care 09/19/18 15:02 Active Notify Provider Vital Signs [RC] ASDIRECTED Care 09/19/18 15:07 Active Vital Signs [RC] Q4H Care 09/19/18 15:02 Active PT Evaluation and Treatment [CONS] Routine Cons 09/20/18 09:00 Active Regular Diet [DIET] Diet 09/19/18 Dinner Active HEMOGLOBIN/HEMATOCRIT,HH [HEME] AM Lab 09/20/18 05:11 Ordered HEMOGLOBIN/HEMATOCRIT,HH [HEME] AM Lab 09/21/18 05:11 Ordered UA W/MICROSCOPIC [URIN] Stat Lab 09/19/18 12:35 Ordered Acetaminophen/HYDROcodone [Volga 325-10 MG] Med 09/19/18 15:07 Active 1 - 2 tab PO Q4H PRN Docusate Sodium [Colace] Med 09/19/18 21:00 Active 100 mg PO BID HYDROmorphone [Dilaudid] Med 09/19/18 15:07 Active 0.5 - 1 mg IVPUSH Q3H PRN Ketorolac [Toradol] Med 09/19/18 15:15 Active 30 mg IVPUSH Q6H Lactated Ringers [Ringers, Lactated] 1,000 ml Med 09/19/18 15:15 Active IV ASDIRECTED Ondansetron [Zofran] Med 09/19/18 15:07 Active 4 mg IV Q8HR PRN Sodium Chloride 0.9% [Saline Flush] Med 09/19/18 12:31 Active 10 ml FLUSH ASDIRECTED PRN Sodium Chloride 0.9% [Saline Flush] Med 09/19/18 12:31 Active 2.5 ml FLUSH ASDIRECTED PRN ceFAZolin [Ancef] 2 gm Med 09/19/18 15:07 Active Premix Bag 1 bag IV ONETIME ceFAZolin [Ancef] 2 gm Med 09/19/18 22:00 Active Premix Bag 1 bag IV Q8HR Antiembolic Hose [OM.PC] Routine Oth 09/19/18 15:02 Ordered Ice Therapy [OM.PC] Routine Oth 09/19/18 15:02 Ordered Obtain Home Medication List [OM.PC] Routine Oth 09/19/18 15:02 Ordered Saline Lock Insert [OM.PC] Stat Oth 09/19/18 12:31 Ordered Sequential Compression Device [OM.PC] Routine Oth 09/19/18 15:02 Ordered Medication Orders Hydrocodone Bitart/Acetaminophen ([place] 325-10 Mg) 1 - 2 tab PO Q4H PRN PRN Reason: Pain Docusate Sodium (Colace) 100 mg PO BID JOSE Hydromorphone HCl (Dilaudid) 0.5 - 1 mg IVPUSH Q3H PRN PRN Reason: Pain Cefazolin Sodium/Dextrose 2 gm (/ Premix) 50 mls @ 100 mls/hr IV ONETIME ONE Stop: 09/19/18 15:36 Cefazolin Sodium/Dextrose 2 gm (/ Premix) 50 mls @ 100 mls/hr IV Q8HR JOSE Stop: 09/20/18 14:29 Lactated Ringer's (Ringers, Lactated) 1,000 mls @ 125 mls/hr IV ASDIRECTED JOSE Ketorolac Tromethamine (Toradol) 30 mg IVPUSH Q6H JOSE Ondansetron HCl (Zofran) 4 mg IV Q8HR PRN PRN Reason: NAUSEA/VOMITING Sodium Chloride (Saline Flush) 10 ml FLUSH ASDIRECTED PRN PRN Reason: Keep Vein Open Last Admin: 09/19/18 12:43 Dose: 10 ml Sodium Chloride (Saline Flush) 2.5 ml FLUSH ASDIRECTED PRN PRN Reason: Keep Vein Open Last Admin: 09/19/18 12:43 Dose: 2.5 ml Assessment/Plan Comment:: The patient had a normal CXR and pelvis XR. His head and neck CT were normal. Spines were cleared. I repaired his right brow laceration. He has a non- displaced intra-articular distal radius fracture and a non-displaced mid right scaphoid fracture. He has a proximal right femur fracture. Orthopedics has been consulted and will take the patient to surgery today. Will admit to my service and perform a secondary exam tomorrow. NPO until surgery.
[2018-09-19] MEDS: Ketorolac 30 MG/ML SDV IVPUSH SCH ×2 (15:38→20:45)
--- NOTE | 2018-09-19 15:59 | PCM.PREANE ---
Preanesthetic Assessment - Anesthesia/Transfusion/Family Hx Anesthesia History: Prior Anesthesia Without Reaction Family History of Anesthesia Reaction: No Intubation History: Unknown - Review of Systems General: No Symptoms Pulmonary: No Symptoms Cardiovascular: No Symptoms Gastrointestinal: No Symptoms Neurological: No Symptoms Other: Reports: None - Physical Assessment O2 Sat by Pulse Oximetry: 98 Respiratory Rate: 16 Vital Signs: Last Vital Signs Temp 37.1 C 09/19/18 12:26 Pulse 70 09/19/18 14:00 Resp 16 09/19/18 14:00 BP 126/75 09/19/18 14:00 Pulse Ox 98 09/19/18 14:00 Height: 1.78 m Weight: 90.718 kg ASA Class: 2E Mental Status: Alert & Oriented x3 Airway Class: Mallampati = 2 Dentition: Reports: Normal Dentition Thyro-Mental Finger Breadths: 3 Mouth Opening Finger Breadths: 2 ROM/Head Extension: Full Lungs: Clear to Auscultation, Normal Respiratory Effort Cardiovascular: Regular Rate, Regular Rhythm - Lab Values: Laboratory Last Values WBC 10.37 K/uL (4.0-11.0) 09/19/18 12:42 RBC 4.87 M/uL (4.50-5.90) 09/19/18 12:42 Hgb 14.9 g/dL (13.0-17.0) 09/19/18 12:42 Hct 43.1 % (38.0-50.0) 09/19/18 12:42 MCV 88.5 fL (80.0-98.0) 09/19/18 12:42 MCH 30.6 pg (27.0-32.0) 09/19/18 12:42 MCHC 34.6 g/dL (31.0-37.0) 09/19/18 12:42 RDW Std Deviation 39.8 fl (28.0-62.0) 09/19/18 12:42 RDW Coeff of Demetrius 13 % (11.0-15.0) 09/19/18 12:42 Plt Count 176 K/uL (150-400) 09/19/18 12:42 MPV 10.20 fL (7.40-12.00) 09/19/18 12:42 Add Manual Diff YES 09/19/18 12:42 Neutrophils % (Manual) 49 % (48.0-80.0) 09/19/18 12:42 Band Neutrophils % 1 % 09/19/18 12:42 Lymphocytes % (Manual) 40 % (16.0-40.0) 09/19/18 12:42 Monocytes % (Manual) 8 % (0.0-15.0) 09/19/18 12:42 Eosinophils % (Manual) 1 % (0.0-7.0) 09/19/18 12:42 Myelocytes % 1 % 09/19/18 12:42 Nucleated RBC % 0.0 /100WBC 09/19/18 12:42 Absolute Seg Neuts 5.1 (1.4-5.7) 09/19/18 12:42 Band Neutrophils # 0.1 09/19/18 12:42 Lymphocytes # (Manual) 4.1 (0.6-2.4) H 09/19/18 12:42 Monocytes # (Manual) 0.8 (0.0-0.8) 09/19/18 12:42 Eosinophils # (Manual) 0.1 (0.0-0.7) 09/19/18 12:42 Absolute Myelocytes 0.1 09/19/18 12:42 Nucleated RBCs # 0 K/uL 09/19/18 12:42 Sodium 141 mmol/L (136-148) 09/19/18 12:42 Potassium 3.8 mmol/L (3.5-5.1) 09/19/18 12:42 Chloride 103 mmol/L (98-107) 09/19/18 12:42 Carbon Dioxide 25.2 mmol/L (21.0-32.0) 09/19/18 12:42 BUN 13 mg/dL (7.0-18.0) 09/19/18 12:42 Creatinine 0.9 mg/dL (0.8-1.3) 09/19/18 12:42 Est Cr Clr Drug Dosing 109.27 mL/min 09/19/18 12:42 Estimated GFR (MDRD) > 60.0 ml/min 09/19/18 12:42 Glucose 98 mg/dL (74-106) 09/19/18 12:42 Calcium 8.7 mg/dL (8.5-10.1) 09/19/18 12:42 Total Bilirubin 0.6 mg/dL (0.2-1.0) 09/19/18 12:42 AST 44 IU/L (15-37) H 09/19/18 12:42 ALT 88 IU/L (14-63) H 09/19/18 12:42 Alkaline Phosphatase 43 U/L (46-116) L 09/19/18 12:42 Total Protein 7.0 g/dL (6.4-8.2) 09/19/18 12:42 Albumin 4.1 g/dL (3.4-5.0) 09/19/18 12:42 Globulin 2.9 g/dL (2.6-4.0) 09/19/18 12:42 Albumin/Globulin Ratio 1.4 (0.9-1.6) 09/19/18 12:42 - Allergies Allergies/Adverse Reactions: Allergies Allergy/AdvReac Type Severity Reaction Status Date / Time No Known Allergies Allergy Verified 09/19/18 12:31 - Blood Blood Available: No - Anesthesia Plan Pre-Op Medication Ordered: None - Acknowledgements Anesthesia Type Planned: General Anesthesia Pt an Appropriate Candidate for the Planned Anesthesia: Yes Alternatives and Risks of Anesthesia Discussed w Pt/Guardian: Yes Pt/Guardian Understands and Agrees with Anesthesia Plan: Yes PreAnesthesia Questionnaire - Past Health History Medical/Surgical History: Denies Medical/Surgical History Musculoskeletal History: Reports: Other (See Below) (rt. femur and rt. distal radius and scafoid bone fx.) - Infectious Disease History Infectious Disease History: Reports: None - SUBSTANCE USE Smoking Status *Q: Former Smoker Tobacco Use Within Last Twelve Months: Cigarettes Recreational Drug Use History: No - HOME MEDS Home Medications: Home Meds . [No Known Home Meds] 12/25/13 [History] - CURRENT (IN HOUSE) MEDS Current Meds: Current Medications Hydrocodone Bitart/Acetaminophen ([place] 325-10 Mg) 1 - 2 tab PO Q4H PRN PRN Reason: Pain Docusate Sodium (Colace) 100 mg PO BID JOSE Hydromorphone HCl (Dilaudid) 0.5 - 1 mg IVPUSH Q3H PRN PRN Reason: Pain Cefazolin Sodium/Dextrose 2 gm (/ Premix) 50 mls @ 100 mls/hr IV Q8HR JOSE Stop: 09/20/18 14:29 Lactated Ringer's (Ringers, Lactated) 1,000 mls @ 125 mls/hr IV ASDIRECTED [facility] Last Admin: 09/19/18 15:36 Dose: 125 mls/hr Lactated Ringer's (Ringers, Lactated) 1,000 mls @ 125 mls/hr IV ASDIRECTED [facility] Ketorolac Tromethamine (Toradol) 30 mg IVPUSH Q6H [facility] Last Admin: 09/19/18 15:38 Dose: Not Given Ondansetron HCl (Zofran) 4 mg IV Q8HR PRN PRN Reason: NAUSEA/VOMITING Sodium Chloride (Saline Flush) 10 ml FLUSH ASDIRECTED PRN PRN Reason: Keep Vein Open Last Admin: 09/19/18 12:43 Dose: 10 ml Sodium Chloride (Saline Flush) 2.5 ml FLUSH ASDIRECTED PRN PRN Reason: Keep Vein Open Last Admin: 09/19/18 12:43 Dose: 2.5 ml Discontinued Medications Diazepam (Valium) 5 mg IV ONETIME ONE Stop: 09/19/18 12:39 Last Admin: 09/19/18 12:45 Dose: 5 mg Fentanyl (Sublimaze) Confirm Administered Dose 250 mcg .ROUTE .STK-MED ONE Stop: 09/19/18 15:07 Hydromorphone HCl (Dilaudid) 1 mg IVPUSH ONETIME ONE Stop: 09/19/18 12:32 Last Admin: 09/19/18 12:39 Dose: 1 mg Hydromorphone HCl (Dilaudid) Confirm Administered Dose 1 mg .ROUTE .STK-MED ONE Stop: 09/19/18 13:56 Last Admin: 09/19/18 14:00 Dose: Not Given Hydromorphone HCl (Dilaudid) 1 mg IVPUSH ONETIME ONE Stop: 09/19/18 14:00 Last Admin: 09/19/18 14:00 Dose: 1 mg Hydromorphone HCl (Dilaudid) 1 mg IVPUSH ONETIME ONE Stop: 09/19/18 14:29 Last Admin: 09/19/18 14:35 Dose: 1 mg Hydromorphone HCl (Dilaudid) 1 mg IVPUSH ONETIME ONE Stop: 09/19/18 15:27 Last Admin: 09/19/18 15:30 Dose: 1 mg Hydromorphone HCl (Dilaudid) Confirm Administered Dose 1 mg .ROUTE .STK-MED ONE Stop: 09/19/18 15:26 Last Admin: 09/19/18 15:37 Dose: Not Given Lidocaine HCl (Xylocaine-Mpf 1%) Confirm Administered Dose 5 mls @ as directed .ROUTE .STK-MED ONE Stop: 09/19/18 14:52 Last Admin: 09/19/18 15:38 Dose: Not Given Cefazolin Sodium/Dextrose 2 gm (/ Premix) 50 mls @ 100 mls/hr IV ONETIME ONE Stop: 09/19/18 15:36 Last Admin: 09/19/18 15:32 Dose: 100 mls/hr Lidocaine (Xylocaine-Mpf 2%) Confirm Administered Dose 5 ml .ROUTE .STK-MED ONE Stop: 09/19/18 15:06 Lidocaine HCl (Xylocaine-Mpf 1%) 10 ml INJECT ONETIME ONE Stop: 09/19/18 14:52 Last Admin: 09/19/18 15:23 Dose: 10 ml Midazolam HCl (Versed 1 Mg/Ml) Confirm Administered Dose 2 mg .ROUTE .STK-MED ONE Stop: 09/19/18 15:07 Ondansetron HCl (Zofran) 4 mg IVPUSH ONETIME ONE Stop: 09/19/18 12:32 Last Admin: 09/19/18 12:39 Dose: 4 mg Ondansetron HCl (Zofran) Confirm Administered Dose 4 mg .ROUTE .STK-MED ONE Stop: 09/19/18 15:06 Propofol (Diprivan 20 Ml) Confirm Administered Dose 200 mg .ROUTE .STK-MED ONE Stop: 09/19/18 15:07 Rocuronium Kennan (Zemuron) Confirm Administered Dose 100 mg .ROUTE .STK-MED ONE Stop: 09/19/18 15:06 Succinylcholine Chloride (Succinylcholine Chloride) Confirm Administered Dose 200 mg .ROUTE .STK-MED ONE Stop: 09/19/18 15:06
[2018-09-19] MEDS ORDERED: Phenylephrine/Normal Saline 100 MCG/ML 10 ML Syringe ONE (16:29)
[2018-09-19] MEDS ORDERED: fentaNYL 100 MCG/2 ML SDV IVPUSH PRN (18:02)
--- NOTE | 2018-09-19 18:13 | PCM.OPNOTE ---
- General Post-Op/Procedure Note Date of Surgery/Procedure: 09/19/18 Operative Procedure(s): CR R femur with insertion of CM nail Post-Op Diagnosis: R ST femur fracture Anesthesia Technique: General ET Tube Primary Surgeon: Lakeshia Issa Injection Mold Technician: Maite Solorio in mLs: 100 Condition: Good Free Text/Narrative:: #[id number]
--- NOTE | 2018-09-19 18:39 | PCM.POSTAN ---
POST ANESTHESIA ASSESSMENT - MENTAL STATUS Mental Status: Alert, Oriented - VITAL SIGNS Pulse Rate: 110 SaO2: 96 Resp Rate: 16 Blood Pressure: 128/68 - RESPIRATORY Respiratory Status: Respiratory Rate WNL, Airway Patent, O2 Saturation Stable - CARDIOVASCULAR CV Status: Pulse Rate WNL, Blood Pressure Stable - GASTROINTESTINAL GI Status: No Symptoms - POST OP HYDRATION Hydration Status: Adequate & Stable
[2018-09-19] MEDS ORDERED: Diphtheria,Pertussis(Acell),Tetanus Vaccine 0.5 ML Syringe IM ONE ×2 (19:00→21:15)
[2018-09-19] MEDS: HYDROmorphone 2 MG/ML Syringe IVPUSH PRN ×2 (19:25→23:20)
[2018-09-19] MEDS: ceFAZolin 2 GM in Premix Bag 1 BAG IV SCH (20:53)
[2018-09-19] MEDS: Ondansetron 4 MG/2 ML SDV IV PRN (20:54)
--- NOTE | 2018-09-19 21:47 | CR ---
INDICATION: pain, fall TECHNIQUE: Left hand 3 views. COMPARISON: None. FINDINGS: Bones: Alignment is normal. No fractures or bone lesions. Joint spaces: Unremarkable. Soft tissues: Unremarkable. IMPRESSION: Unremarkable left hand. Dictated by: Luis Alberto Corral MD @ 09/19/2018 21:46:55 (Electronically Signed)
[2018-09-19] MEDS: Docusate Sodium 100 MG Cap PO SCH (21:50)
[2018-09-19] MEDS ORDERED: ceFAZolin 2 GM in Premix Bag 1 BAG IV SCH (22:00)
--- NOTE | 2018-09-19 23:12 | OR ---
SURGEON: KATARZYNA RAO MD DATE OF PROCEDURE: 09/19/2018 PREOPERATIVE DIAGNOSIS: Right eyebrow laceration. POSTOPERATIVE DIAGNOSIS: Right eyebrow laceration. PROCEDURE PERFORMED: Laceration repair. ANESTHESIA: Local. FINDINGS: 2 cm laceration with a 1 cm extension. COMPLICATIONS: None. ESTIMATED BLOOD LOSS: 3 mL. INDICATIONS: The patient is a 43-year-old male, who suffered a traumatic fall today. He has a complex laceration to the right eyebrow. I explained the need for repair. I explained the procedure, expected perioperative course, and risks. The patient verbalized understanding and wishes to proceed. PROCEDURE IN DETAIL: The patient was in the ER on his ER cart. A time-out was completed verifying the patient's name, age, date of , allergies, and procedure to be performed. The wound was first irrigated copiously with normal saline. It was then prepped and draped in usual standard fashion. I anesthetized the wound with 2 mL of 1% lidocaine plain. The wound was measured. It measured 2 cm in size with a 1 cm extension along the middle of the laceration. This was closed with interrupted 4-0 Prolene sutures, and bacitracin was applied to the wound. He tolerated the procedure well with no immediate complications. MIKE LEOS /[id number] LELO
[2018-09-20] MEDS: ceFAZolin 2 GM in Premix Bag 1 BAG IV SCH ×2 (00:11→05:39)
--- NOTE | 2018-09-20 01:00 | OR ---
SURGEON: Lakeshia Issa MD DATE OF PROCEDURE: 09/19/2018 PREOPERATIVE DIAGNOSES: 1. Right subtrochanteric femur fracture. 2. Right wrist scaphoid fracture. 3. Right distal radius fracture, intra-articular. POSTOPERATIVE DIAGNOSES: 1. Right subtrochanteric femur fracture. 2. Right wrist scaphoid fracture. 3. Right distal radius fracture, intra-articular. PROCEDURE: 1. Closed reduction of right femur with insertion of cephalomedullary nail. 2. Application of thumb spica splint to the right wrist. CERTIFIED ALCOHOL AND DRUG COUNSELOR: Maite Solorio PA-C; Yung Marcos MD, PGY2. REASON AND ROLE FOR CERTIFIED ALCOHOL AND DRUG COUNSELOR: Retraction, prepping, draping, positioning, and closure assistance. ANESTHESIA: General. ESTIMATED BLOOD LOSS: 100 mL. TOURNIQUET TIME: 0 minutes. COMPLICATIONS: None. DVT PROPHYLAXIS: PAS boot to the contralateral lower extremity. IMPLANTS USED: Daren 10 mm x 420 mm, 125-degree long gamma nail with 95 mm lag screw, and two 5.0 mm distal interlocking screws of appropriate length. BRIEF HISTORY: Elsy is a 43-year-old male who sustained a fall approximately 10 feet earlier today. He landed on his right side. He complained of pain in his wrist and hip. He was evaluated in the emergency room. He was evaluated by the trauma surgeon as well. He was found to have a right subtrochanteric hip fracture. At that time, I recommended surgical treatment. The risks and goals of procedure were discussed with the patient and were documented preoperatively. He agreed to proceed. X-rays of the wrist also showed an intra-articular fracture of the right distal radius as well as a nondisplaced fracture of the right scaphoid. DESCRIPTION OF PROCEDURE: The patient was properly identified and brought to the operating room. General anesthesia was administered on the cart. After adequate anesthesia was obtained, the patient was placed supine onto the fracture table. A well-padded perineal post was placed between his legs. The right upper extremity was then placed in a well-padded sugar-tong splint. The right lower extremity was then placed into a traction boot. Care was taken to pad this. He was then placed into the traction device. The well leg was placed into a well-leg wren with care taken to pad all bony prominences. The hip and knee were flexed to approximately 90 degrees with slight abduction. The arms were secured. A time- out was performed to ensure correct site and procedure. Preoperative antibiotics were given. The surgical site had been marked preoperatively. The right lower extremity was then prepped in standard fashion and was sterilely draped. An incision was made slightly superior and posterior to the greater trochanter. Subcutaneous tissues were incised. The iliotibial band was also incised. The tip of the trochanter was then palpated. A guide pin was placed. C-arm imaging helped confirm placement of the guide pin. This was then passed into the subtrochanteric region. This was overdrilled with an entry reamer. I then proceeded with sequential reaming up to 11.5 mm. The long gamma devyn came in 10 mm diameter. A long ball-tip guide devyn was placed prior to the reaming and passed easily into the distal fragment. It was advanced to the level of the epiphyseal scar. This was the level to which the reaming occurred. We then measured the ball-tip guide devyn and felt that a 420 mm would be appropriate length. This devyn was then inserted without difficulty. A small incision was placed along the lateral aspect of the thigh to place a lag screw. A guide pin was inserted in the proper position in both the AP and lateral planes. This was overdrilled with a step reamer after measurement. A 95 mm lag screw was then inserted to the appropriate position. The interlocking screw was placed into the devyn to secure the lag screw. The digital asset coordinator guide was removed, and C-arm images confirmed acceptable reduction of the fracture with good position of the hardware. I then turned my attention to the distal interlocking screws. Lateral view of the thigh was obtained with the C-arm image intensifier. Perfect circles were identified. Small incisions were made over the lateral aspect of the distal thigh, and the drill was passed through the devyn without difficulty. Interlocking screws were placed to the appropriate length. Final C-arm images confirmed acceptable placement of the interlocking screws in both the AP and lateral planes. The wounds were then copiously irrigated with saline solution. The subcutaneous tissues were closed with 2-0 Vicryl, and the skin was closed with michelle. Aquacel dressings were placed over the wounds. Following this, a well padded plaster thumb spica splint was placed on the LUE. He was awakened from his anesthetic and transferred back to the operating room cart. He was brought to recovery room in stable condition. All needle and sponge counts were correct. CECILIA / DERIC /[id number] MTDD
[2018-09-20] MEDS ORDERED: Calcium Carbonate 500 MG Tab.Chew PO PRN (01:10)
[2018-09-20] MEDS: Acetaminophen/HYDROcodone 325-10 MG Tab PO PRN ×4 (03:39→18:19)
[2018-09-20] MEDS: Ketorolac 30 MG/ML SDV IVPUSH SCH ×4 (03:39→20:42)
[2018-09-20] MEDS: HYDROmorphone 2 MG/ML Syringe IVPUSH PRN (05:40)
[2018-09-20] MEDS ORDERED: HYDROmorphone 1 MG/ML Syringe IVPUSH PRN (08:00)
[2018-09-20] MEDS: Docusate Sodium 100 MG Cap PO SCH ×2 (08:03→20:42)
--- NOTE | 2018-09-20 08:05 | PCM.SURGPN ---
- General Info Date of Service: 09/20/18 Date of Surgery/Procedure: 09/19/18 POD#: 1 Post-Op Diagnosis: Right femur fracture and Right wrist fracture Functional Status: Reports: Pain Controlled - Review of Systems General: Denies: Fever Pulmonary: Denies: Shortness of Breath Cardiovascular: Denies: Chest Pain Gastrointestinal: Denies: Abdominal Pain Neurological: Denies: Numbness Systems Review Comment:: Some nausea and emesis yesterday evening after surgery but doing much better this am. Pain comes and goes but overall seems controlled. He offers no other complaints this morning. He has not been out of bed yet. - Patient Data Vitals - Most Recent: Last Vital Signs Temp 98.2 F 09/20/18 03:00 Pulse 101 H 09/20/18 03:00 Resp 16 09/20/18 03:00 BP 110/70 09/20/18 03:00 Pulse Ox 98 09/20/18 03:00 Weight - Most Recent: 200 lb I&O - Last 24 Hours: Intake & Output 09/19/18 09/20/18 09/20/18 22:59 06:59 14:59 Intake Total 2100 Output Total 300 Balance 1800 Lab Results Last 24 Hrs: Laboratory Results - last 24 hr 09/19/18 09/19/18 09/20/18 Range/Units 12:42 12:42 05:23 WBC 10.37 (4.0-11.0) K/uL RBC 4.87 (4.50-5.90) M/uL Hgb 14.9 10.8 L (13.0-17.0) g/dL Hct 43.1 32.0 L (38.0-50.0) % MCV 88.5 (80.0-98.0) fL MCH 30.6 (27.0-32.0) pg MCHC 34.6 (31.0-37.0) g/dL RDW Std Deviation 39.8 (28.0-62.0) fl RDW Coeff of Demetrius 13 (11.0-15.0) % Plt Count 176 (150-400) K/uL MPV 10.20 (7.40-12.00) fL Add Manual Diff YES Neutrophils % (Manual) 49 (48.0-80.0) % Band Neutrophils % 1 % Lymphocytes % (Manual) 40 (16.0-40.0) % Monocytes % (Manual) 8 (0.0-15.0) % Eosinophils % (Manual) 1 (0.0-7.0) % Myelocytes % 1 % Nucleated RBC % 0.0 /100WBC Absolute Seg Neuts 5.1 (1.4-5.7) Band Neutrophils # 0.1 Lymphocytes # (Manual) 4.1 H (0.6-2.4) Monocytes # (Manual) 0.8 (0.0-0.8) Eosinophils # (Manual) 0.1 (0.0-0.7) Absolute Myelocytes 0.1 Nucleated RBCs # 0 K/uL Sodium 141 (136-148) mmol/L Potassium 3.8 (3.5-5.1) mmol/L Chloride 103 (98-107) mmol/L Carbon Dioxide 25.2 (21.0-32.0) mmol/L BUN 13 (7.0-18.0) mg/dL Creatinine 0.9 (0.8-1.3) mg/dL Est Cr Clr Drug Dosing 109.27 mL/min Estimated GFR (MDRD) > 60.0 ml/min Glucose 98 (74-106) mg/dL Calcium 8.7 (8.5-10.1) mg/dL Total Bilirubin 0.6 (0.2-1.0) mg/dL AST 44 H (15-37) IU/L ALT 88 H (14-63) IU/L Alkaline Phosphatase 43 L (46-116) U/L Total Protein 7.0 (6.4-8.2) g/dL Albumin 4.1 (3.4-5.0) g/dL Globulin 2.9 (2.6-4.0) g/dL Albumin/Globulin Ratio 1.4 (0.9-1.6) Med Orders - Current: Current Medications Hydrocodone Bitart/Acetaminophen ([place] 325-10 Mg) 1 - 2 tab PO Q4H PRN PRN Reason: Pain Last Admin: 09/20/18 03:39 Dose: 1 tab Calcium Carbonate/Glycine (Tums) 1,000 mg PO Q6HR PRN PRN Reason: Indigestion Last Admin: 09/20/18 01:42 Dose: 1,000 mg Docusate Sodium (Colace) 100 mg PO BID [facility] Last Admin: 09/19/18 21:50 Dose: Not Given Fentanyl (Sublimaze) 50 mcg IVPUSH Q5M PRN PRN Reason: Pain (severe 7-10) Stop: 09/20/18 18:02 Hydromorphone HCl (Dilaudid) 0.5 - 1 mg IVPUSH Q3H PRN PRN Reason: Pain Lactated Ringer's (Ringers, Lactated) 1,000 mls @ 125 mls/hr IV ASDIRECTED [facility] Last Admin: 09/19/18 15:36 Dose: 125 mls/hr Lactated Ringer's (Ringers, Lactated) 1,000 mls @ 125 mls/hr IV ASDIRECTED [facility] Ketorolac Tromethamine (Toradol) 30 mg IVPUSH Q6H [facility] Last Admin: 09/20/18 03:39 Dose: 30 mg Ondansetron HCl (Zofran) 4 mg IV Q8HR PRN PRN Reason: NAUSEA/VOMITING Last Admin: 09/19/18 20:54 Dose: 4 mg Sodium Chloride (Saline Flush) 10 ml FLUSH ASDIRECTED PRN PRN Reason: Keep Vein Open Last Admin: 09/19/18 12:43 Dose: 10 ml Sodium Chloride (Saline Flush) 2.5 ml FLUSH ASDIRECTED PRN PRN Reason: Keep Vein Open Last Admin: 09/19/18 12:43 Dose: 2.5 ml Discontinued Medications Diazepam (Valium) 5 mg IV ONETIME ONE Stop: 09/19/18 12:39 Last Admin: 09/19/18 12:45 Dose: 5 mg Diphtheria/Tetanus/Acell Pertussis (Adacel) 0.5 ml IM .ONCE ONE Stop: 09/19/18 21:16 Last Admin: 09/19/18 21:44 Dose: 0.5 ml Fentanyl (Sublimaze) Confirm Administered Dose 250 mcg .ROUTE .STK-MED ONE Stop: 09/19/18 15:07 Hydromorphone HCl (Dilaudid) 1 mg IVPUSH ONETIME ONE Stop: 09/19/18 12:32 Last Admin: 09/19/18 12:39 Dose: 1 mg Hydromorphone HCl (Dilaudid) Confirm Administered Dose 1 mg .ROUTE .STK-MED ONE Stop: 09/19/18 13:56 Last Admin: 09/19/18 14:00 Dose: Not Given Hydromorphone HCl (Dilaudid) 1 mg IVPUSH ONETIME ONE Stop: 09/19/18 14:00 Last Admin: 09/19/18 14:00 Dose: 1 mg Hydromorphone HCl (Dilaudid) 1 mg IVPUSH ONETIME ONE Stop: 09/19/18 14:29 Last Admin: 09/19/18 14:35 Dose: 1 mg Hydromorphone HCl (Dilaudid) 0.5 - 1 mg IVPUSH Q3H PRN PRN Reason: Pain Last Admin: 09/20/18 05:40 Dose: 0.5 mg Hydromorphone HCl (Dilaudid) 1 mg IVPUSH ONETIME ONE Stop: 09/19/18 15:27 Last Admin: 09/19/18 15:30 Dose: 1 mg Hydromorphone HCl (Dilaudid) Confirm Administered Dose 1 mg .ROUTE .STK-MED ONE Stop: 09/19/18 15:26 Last Admin: 09/19/18 15:37 Dose: Not Given Lidocaine HCl (Xylocaine-Mpf 1%) Confirm Administered Dose 5 mls @ as directed .ROUTE .STK-MED ONE Stop: 09/19/18 14:52 Last Admin: 09/19/18 15:38 Dose: Not Given Cefazolin Sodium/Dextrose 2 gm (/ Premix) 50 mls @ 100 mls/hr IV ONETIME ONE Stop: 09/19/18 15:36 Last Admin: 09/19/18 15:32 Dose: 100 mls/hr Cefazolin Sodium/Dextrose 2 gm (/ Premix) 50 mls @ 100 mls/hr IV Q8HR [facility] Stop: 09/20/18 14:29 Cefazolin Sodium/Dextrose 2 gm (/ Premix) 50 mls @ 100 mls/hr IV Q8HR [facility] Stop: 09/20/18 06:29 Last Admin: 09/20/18 05:39 Dose: 100 mls/hr Lidocaine (Xylocaine-Mpf 2%) Confirm Administered Dose 5 ml .ROUTE .STK-MED ONE Stop: 09/19/18 15:06 Lidocaine HCl (Xylocaine-Mpf 1%) 10 ml INJECT ONETIME ONE Stop: 09/19/18 14:52 Last Admin: 09/19/18 15:23 Dose: 10 ml Midazolam HCl (Versed 1 Mg/Ml) Confirm Administered Dose 2 mg .ROUTE .STK-MED ONE Stop: 09/19/18 15:07 Ondansetron HCl (Zofran) 4 mg IVPUSH ONETIME ONE Stop: 09/19/18 12:32 Last Admin: 09/19/18 12:39 Dose: 4 mg Ondansetron HCl (Zofran) Confirm Administered Dose 4 mg .ROUTE .STK-MED ONE Stop: 09/19/18 15:06 Phenylephrine HCl (Phenylephrine In Ns 100 Mcg/Ml) Confirm Administered Dose 1 mg .ROUTE .STK-MED ONE Stop: 09/19/18 16:30 Propofol (Diprivan 20 Ml) Confirm Administered Dose 200 mg .ROUTE .STK-MED ONE Stop: 09/19/18 15:07 Rocuronium [place] (Zemuron) Confirm Administered Dose 100 mg .ROUTE .STK-MED ONE Stop: 09/19/18 15:06 Succinylcholine Chloride (Succinylcholine Chloride) Confirm Administered Dose 200 mg .ROUTE .STK-MED ONE Stop: 09/19/18 15:06 - Exam Wound/Incisions: Dressing Dry and Intact, No Drainage General: Alert, Oriented, Cooperative, No Acute Distress Lungs: Normal Respiratory Effort Cardiovascular: Regular Rate, Regular Rhythm GI/Abdominal Exam: Soft, Non-Tender Skin: Warm, Dry Neurological: No New Focal Deficit Physical Findings Comment:: He has limited movement of his right hip and knee due to pain. He has good motor function of his right ankle. The surgical dressing are in place and all appear clean and dry. He has strongly palpable DP pulses bilaterally. Sensation is intact to his right leg and is equal to the left leg. - Problem List & Annotations (1) Right wrist fracture SNOMED Code(s): 997926493, 821726309 Code(s): S62.101A - FRACTURE OF UNSP CARPAL BONE, RIGHT WRIST, INIT FOR CLOS FX Status: Acute Priority: Medium Current Visit: Yes Qualifiers: Encounter type: initial encounter Fracture type: closed Qualified Code(s) : S62.101A - Fracture of unspecified carpal bone, right wrist, initial encounter for closed fracture (2) Hip fracture SNOMED Code(s): 369322513 Code(s): S72.009A - FRACTURE OF UNSP PART OF NECK OF UNSP FEMUR, INIT Status: Acute Priority: High Current Visit: Yes Qualifiers: Encounter type: initial encounter Fracture type: closed Laterality: right Qualified Code(s): S72.001A - Fracture of unspecified part of neck of right femur, initial encounter for closed fracture - Problem List Review Problem List Initiated/Reviewed/Updated: Yes - My Orders Last 24 Hours: Active Orders 24 hr Category Date Time Status Activity as Tolerated [RC] .Routine Care 09/19/18 15:07 Active Antiembolic Devices [RC] PER UNIT ROUTINE Care 09/19/18 15:07 Active Bradycardia-Neuroaxis [employer] [RC] ROUTINE Care 09/19/18 18:02 Active Cardiac Monitoring [RC] . DIRECTED Care 09/19/18 12:33 Active Hypertension-Neuroaxis [employer] [RC] ROUTINE Care 09/19/18 18:02 Active Hypotension-Neuroaxis [employer] [RC] ROUTINE Care 09/19/18 18:02 Active Neurovascular Check [RC] Q4HR Care 09/19/18 15:02 Active Notify Provider Vital Signs [RC] ASDIRECTED Care 09/19/18 15:07 Active Overnight Pulse Oximetry [RC] Click to Edit Care 09/19/18 18:51 Active Vaccines to be Administered [RC] PER UNIT ROUTINE Care 09/19/18 19:00 Active Vital Signs [RC] Q4H Care 09/19/18 15:02 Active PT Evaluation and Treatment [CONS] Routine Cons 09/20/18 09:00 Active Regular Diet [DIET] Diet 09/19/18 Dinner Active Fluoro Up To 1Hr [CR] Routine Exams 09/19/18 19:00 Taken Wrist wo Cont Rt [CT] Routine Exams 09/20/18 08:00 Ordered HEMOGLOBIN/HEMATOCRIT,HH [HEME] AM Lab 09/21/18 05:11 Ordered UA W/MICROSCOPIC [URIN] Stat Lab 09/19/18 12:35 Ordered Acetaminophen/HYDROcodone [[place] 325-10 MG] Med 09/19/18 15:07 Active 1 - 2 tab PO Q4H PRN Calcium Carbonate [Tums] Med 09/20/18 01:10 Active 1,000 mg PO Q6HR PRN Docusate Sodium [Colace] Med 09/19/18 21:00 Active 100 mg PO BID HYDROmorphone [Dilaudid] Med 09/20/18 08:00 Active 0.5 - 1 mg IVPUSH Q3H PRN Ketorolac [Toradol] Med 09/19/18 15:15 Active 30 mg IVPUSH Q6H Lactated Ringers [Ringers, Lactated] 1,000 ml Med 09/19/18 15:15 Active IV ASDIRECTED Lactated Ringers [Ringers, Lactated] 1,000 ml Med 09/19/18 15:30 Active IV ASDIRECTED Ondansetron [Zofran] Med 09/19/18 15:07 Active 4 mg IV Q8HR PRN Sodium Chloride 0.9% [Saline Flush] Med 09/19/18 12:31 Active 10 ml FLUSH ASDIRECTED PRN Sodium Chloride 0.9% [Saline Flush] Med 09/19/18 12:31 Active 2.5 ml FLUSH ASDIRECTED PRN fentaNYL [Sublimaze] Med 09/19/18 18:02 Active 50 mcg IVPUSH Q5M PRN Antiembolic Hose [OM.PC] Routine Oth 09/19/18 15:02 Ordered Ice Therapy [OM.PC] Routine Oth 09/19/18 15:02 Ordered Obtain Home Medication List [OM.PC] Routine Oth 09/19/18 15:02 Ordered Pulse Oximetry Continuous Monitoring [OM.PC] Routine Oth 09/19/18 18:50 Ordered Saline Lock Insert [OM.PC] Stat Oth 09/19/18 12:31 Ordered Sequential Compression Device [OM.PC] Routine Oth 09/19/18 15:02 Ordered Medication Orders Hydrocodone Bitart/Acetaminophen ([place] 325-10 Mg) 1 - 2 tab PO Q4H PRN PRN Reason: Pain Last Admin: 09/20/18 03:39 Dose: 1 tab Calcium Carbonate/Glycine (Tums) 1,000 mg PO Q6HR PRN PRN Reason: Indigestion Last Admin: 09/20/18 01:42 Dose: 1,000 mg Docusate Sodium (Colace) 100 mg PO BID [facility] Last Admin: 09/19/18 21:50 Dose: Fentanyl (Sublimaze) 50 mcg IVPUSH Q5M PRN PRN Reason: Pain (severe 7-10) Stop: 09/20/18 18:02 Hydromorphone HCl (Dilaudid) 0.5 - 1 mg IVPUSH Q3H PRN PRN Reason: Pain Lactated Ringer's (Ringers, Lactated) 1,000 mls @ 125 mls/hr IV ASDIRECTED [facility] Last Admin: 09/19/18 15:36 Dose: 125 mls/hr Lactated Ringer's (Ringers, Lactated) 1,000 mls @ 125 mls/hr IV ASDIRECTED [facility] Ketorolac Tromethamine (Toradol) 30 mg IVPUSH Q6H [facility] Last Admin: 09/20/18 03:39 Dose: 30 mg Admin: 09/19/18 20:45 Dose: 30 mg Admin: 09/19/18 15:38 Dose: Ondansetron HCl (Zofran) 4 mg IV Q8HR PRN PRN Reason: NAUSEA/VOMITING Last Admin: 09/19/18 20:54 Dose: 4 mg Sodium Chloride (Saline Flush) 10 ml FLUSH ASDIRECTED PRN PRN Reason: Keep Vein Open Last Admin: 09/19/18 12:43 Dose: 10 ml Sodium Chloride (Saline Flush) 2.5 ml FLUSH ASDIRECTED PRN PRN Reason: Keep Vein Open Last Admin: 09/19/18 12:43 Dose: 2.5 ml - Assessment Assessment (Free Text/Narrative):: POD 1 s/p closed reduction and internal fixation of right femur fracture with intra-medullary nailing. He had nausea and emesis yesterday evening but this morning is doing much better. - Plan Plan (Free Text/Narrative):: - Primary cares per trauma team - Physical therapy, should work to increase activity and maintain good ROM. - Keep surgical dressings in place. Will change POD 2. - Continue pain control with Dilaudid PRN and Toradol. Will add PO opiate and work to minimize IV medications. - Regular diet - Zofran for nausea - Ok for anticoagulation at this point - Will obtain CT of right wrist today, until further instructions keep right wirst in splint. Left hand XRs were negative for fracture. - Will discuss further plans with Dr. Issa.
--- NOTE | 2018-09-20 08:23 | PCM.SURGPN ---
<Maite Solorio R - Last Filed: 09/20/18 08:17> - General Info Date of Service: 09/20/18 Date of Surgery/Procedure: 09/19/18 POD#: 1 Functional Status: Reports: Pain Controlled, Urinating. Denies: Ambulating - Review of Systems General: Reports: No Symptoms Pulmonary: Reports: No Symptoms Cardiovascular: Reports: No Symptoms Gastrointestinal: Reports: No Symptoms Systems Review Comment:: pt resting comfortably in bed pain in R hip and R wrist controlled decreasing L wrist pain has not been OOB yet no specific concerns today - Patient Data Vitals - Most Recent: Last Vital Signs Temp 98.2 F 09/20/18 03:00 Pulse 101 H 09/20/18 03:00 Resp 16 09/20/18 03:00 BP 110/70 09/20/18 03:00 Pulse Ox 98 09/20/18 03:00 Weight - Most Recent: 90.718 kg I&O - Last 24 Hours: Intake & Output 09/19/18 09/20/18 09/20/18 22:59 06:59 14:59 Intake Total 2100 1670 Output Total 300 Balance 1800 1670 Lab Results Last 24 Hrs: Laboratory Results - last 24 hr 09/19/18 09/19/18 09/20/18 Range/Units 12:42 12:42 05:23 WBC 10.37 (4.0-11.0) K/uL RBC 4.87 (4.50-5.90) M/uL Hgb 14.9 10.8 L (13.0-17.0) g/dL Hct 43.1 32.0 L (38.0-50.0) % MCV 88.5 (80.0-98.0) fL MCH 30.6 (27.0-32.0) pg MCHC 34.6 (31.0-37.0) g/dL RDW Std Deviation 39.8 (28.0-62.0) fl RDW Coeff of Demetrius 13 (11.0-15.0) % Plt Count 176 (150-400) K/uL MPV 10.20 (7.40-12.00) fL Add Manual Diff YES Neutrophils % (Manual) 49 (48.0-80.0) % Band Neutrophils % 1 % Lymphocytes % (Manual) 40 (16.0-40.0) % Monocytes % (Manual) 8 (0.0-15.0) % Eosinophils % (Manual) 1 (0.0-7.0) % Myelocytes % 1 % Nucleated RBC % 0.0 /100WBC Absolute Seg Neuts 5.1 (1.4-5.7) Band Neutrophils # 0.1 Lymphocytes # (Manual) 4.1 H (0.6-2.4) Monocytes # (Manual) 0.8 (0.0-0.8) Eosinophils # (Manual) 0.1 (0.0-0.7) Absolute Myelocytes 0.1 Nucleated RBCs # 0 K/uL Sodium 141 (136-148) mmol/L Potassium 3.8 (3.5-5.1) mmol/L Chloride 103 (98-107) mmol/L Carbon Dioxide 25.2 (21.0-32.0) mmol/L BUN 13 (7.0-18.0) mg/dL Creatinine 0.9 (0.8-1.3) mg/dL Est Cr Clr Drug Dosing 109.27 mL/min Estimated GFR (MDRD) > 60.0 ml/min Glucose 98 (74-106) mg/dL Calcium 8.7 (8.5-10.1) mg/dL Total Bilirubin 0.6 (0.2-1.0) mg/dL AST 44 H (15-37) IU/L ALT 88 H (14-63) IU/L Alkaline Phosphatase 43 L (46-116) U/L Total Protein 7.0 (6.4-8.2) g/dL Albumin 4.1 (3.4-5.0) g/dL Globulin 2.9 (2.6-4.0) g/dL Albumin/Globulin Ratio 1.4 (0.9-1.6) Med Orders - Current: Current Medications Hydrocodone Bitart/Acetaminophen ([place] 325-10 Mg) 1 - 2 tab PO Q4H PRN PRN Reason: Pain Last Admin: 09/20/18 08:02 Dose: 2 tab Calcium Carbonate/Glycine (Tums) 1,000 mg PO Q6HR PRN PRN Reason: Indigestion Last Admin: 09/20/18 01:42 Dose: 1,000 mg Docusate Sodium (Colace) 100 mg PO BID JOSE Last Admin: 09/20/18 08:03 Dose: 100 mg Fentanyl (Sublimaze) 50 mcg IVPUSH Q5M PRN PRN Reason: Pain (severe 7-10) Stop: 09/20/18 18:02 Hydromorphone HCl (Dilaudid) 0.5 - 1 mg IVPUSH Q3H PRN PRN Reason: Pain Lactated Ringer's (Ringers, Lactated) 1,000 mls @ 125 mls/hr IV ASDIRECTED [facility] Last Admin: 09/19/18 15:36 Dose: 125 mls/hr Lactated Ringer's (Ringers, Lactated) 1,000 mls @ 125 mls/hr IV ASDIRECTED [facility] Ketorolac Tromethamine (Toradol) 30 mg IVPUSH Q6H [facility] Last Admin: 09/20/18 03:39 Dose: 30 mg Ondansetron HCl (Zofran) 4 mg IV Q8HR PRN PRN Reason: NAUSEA/VOMITING Last Admin: 09/19/18 20:54 Dose: 4 mg Rivaroxaban (Xarelto) 10 mg PO DAILY [facility] Sodium Chloride (Saline Flush) 10 ml FLUSH ASDIRECTED PRN PRN Reason: Keep Vein Open Last Admin: 09/19/18 12:43 Dose: 10 ml Sodium Chloride (Saline Flush) 2.5 ml FLUSH ASDIRECTED PRN PRN Reason: Keep Vein Open Last Admin: 09/19/18 12:43 Dose: 2.5 ml Discontinued Medications Diazepam (Valium) 5 mg IV ONETIME ONE Stop: 09/19/18 12:39 Last Admin: 09/19/18 12:45 Dose: 5 mg Diphtheria/Tetanus/Acell Pertussis (Adacel) 0.5 ml IM .ONCE ONE Stop: 09/19/18 21:16 Last Admin: 09/19/18 21:44 Dose: 0.5 ml Fentanyl (Sublimaze) Confirm Administered Dose 250 mcg .ROUTE .STK-MED ONE Stop: 09/19/18 15:07 Hydromorphone HCl (Dilaudid) 1 mg IVPUSH ONETIME ONE Stop: 09/19/18 12:32 Last Admin: 09/19/18 12:39 Dose: 1 mg Hydromorphone HCl (Dilaudid) Confirm Administered Dose 1 mg .ROUTE .STK-MED ONE Stop: 09/19/18 13:56 Last Admin: 09/19/18 14:00 Dose: Not Given Hydromorphone HCl (Dilaudid) 1 mg IVPUSH ONETIME ONE Stop: 09/19/18 14:00 Last Admin: 09/19/18 14:00 Dose: 1 mg Hydromorphone HCl (Dilaudid) 1 mg IVPUSH ONETIME ONE Stop: 09/19/18 14:29 Last Admin: 09/19/18 14:35 Dose: 1 mg Hydromorphone HCl (Dilaudid) 0.5 - 1 mg IVPUSH Q3H PRN PRN Reason: Pain Last Admin: 09/20/18 05:40 Dose: 0.5 mg Hydromorphone HCl (Dilaudid) 1 mg IVPUSH ONETIME ONE Stop: 09/19/18 15:27 Last Admin: 09/19/18 15:30 Dose: 1 mg Hydromorphone HCl (Dilaudid) Confirm Administered Dose 1 mg .ROUTE .STK-MED ONE Stop: 09/19/18 15:26 Last Admin: 09/19/18 15:37 Dose: Not Given Lidocaine HCl (Xylocaine-Mpf 1%) Confirm Administered Dose 5 mls @ as directed .ROUTE .STK-MED ONE Stop: 09/19/18 14:52 Last Admin: 09/19/18 15:38 Dose: Not Given Cefazolin Sodium/Dextrose 2 gm (/ Premix) 50 mls @ 100 mls/hr IV ONETIME ONE Stop: 09/19/18 15:36 Last Admin: 09/19/18 15:32 Dose: 100 mls/hr Cefazolin Sodium/Dextrose 2 gm (/ Premix) 50 mls @ 100 mls/hr IV Q8HR JOSE Stop: 09/20/18 14:29 Cefazolin Sodium/Dextrose 2 gm (/ Premix) 50 mls @ 100 mls/hr IV Q8HR [facility] Stop: 09/20/18 06:29 Last Admin: 09/20/18 05:39 Dose: 100 mls/hr Lidocaine (Xylocaine-Mpf 2%) Confirm Administered Dose 5 ml .ROUTE .STK-MED ONE Stop: 09/19/18 15:06 Lidocaine HCl (Xylocaine-Mpf 1%) 10 ml INJECT ONETIME ONE Stop: 09/19/18 14:52 Last Admin: 09/19/18 15:23 Dose: 10 ml Midazolam HCl (Versed 1 Mg/Ml) Confirm Administered Dose 2 mg .ROUTE .STK-MED ONE Stop: 09/19/18 15:07 Ondansetron HCl (Zofran) 4 mg IVPUSH ONETIME ONE Stop: 09/19/18 12:32 Last Admin: 09/19/18 12:39 Dose: 4 mg Ondansetron HCl (Zofran) Confirm Administered Dose 4 mg .ROUTE .STK-MED ONE Stop: 09/19/18 15:06 Phenylephrine HCl (Phenylephrine In Ns 100 Mcg/Ml) Confirm Administered Dose 1 mg .ROUTE .STK-MED ONE Stop: 09/19/18 16:30 Propofol (Diprivan 20 Ml) Confirm Administered Dose 200 mg .ROUTE .STK-MED ONE Stop: 09/19/18 15:07 Rocuronium [place] (Zemuron) Confirm Administered Dose 100 mg .ROUTE .STK-MED ONE Stop: 09/19/18 15:06 Succinylcholine Chloride (Succinylcholine Chloride) Confirm Administered Dose 200 mg .ROUTE .STK-MED ONE Stop: 09/19/18 15:06 - Exam Wound/Incisions: Dressing Dry and Intact, Drainage (minimal serosanguineous drainage to proximal dressings. distal dressing intact. ) General: Alert, Oriented Cardiovascular: Regular Rate, Regular Rhythm Extremities: Other (see free text below) Physical Findings Comment:: exam RLE - dressings c/d/i, thigh/calf soft/nttp, at/ehl/gastroc 5/5, dp 2+, sensation intact distally exam RUE - thumb spica splint c/d/i, freely moves IF-SF, radial/ulnar/median sensation intact, cap refill <2 seconds - Problem List & Annotations (1) Hip fracture SNOMED Code(s): 796904181 Code(s): S72.009A - FRACTURE OF UNSP PART OF NECK OF UNSP FEMUR, INIT Status: Acute Priority: High Current Visit: Yes Qualifiers: Encounter type: initial encounter Fracture type: closed Laterality: right Qualified Code(s): S72.001A - Fracture of unspecified part of neck of right femur, initial encounter for closed fracture - Problem List Review Problem List Initiated/Reviewed/Updated: Yes - My Orders Last 24 Hours: Active Orders 24 hr Category Date Time Status Activity as Tolerated [RC] .Routine Care 09/19/18 15:07 Active Antiembolic Devices [RC] PER UNIT ROUTINE Care 09/19/18 15:07 Active Bradycardia-Neuroaxis [facility] [RC] ROUTINE Care 09/19/18 18:02 Active Cardiac Monitoring [RC] . DIRECTED Care 09/19/18 12:33 Active Hypertension-Neuroaxis [facility] [RC] ROUTINE Care 09/19/18 18:02 Active Hypotension-Neuroaxis [facility] [RC] ROUTINE Care 09/19/18 18:02 Active Neurovascular Check [RC] Q4HR Care 09/19/18 15:02 Active Notify Provider Vital Signs [RC] ASDIRECTED Care 09/19/18 15:07 Active Overnight Pulse Oximetry [RC] Click to Edit Care 09/19/18 18:51 Active Vaccines to be Administered [RC] PER UNIT ROUTINE Care 09/19/18 19:00 Active Vital Signs [RC] Q4H Care 09/19/18 15:02 Active PT Evaluation and Treatment [CONS] Routine Cons 09/20/18 09:00 Active Regular Diet [DIET] Diet 09/19/18 Dinner Active Fluoro Up To 1Hr [CR] Routine Exams 09/19/18 19:00 Taken Wrist wo Cont Rt [CT] Routine Exams 09/20/18 08:00 Ordered HEMOGLOBIN/HEMATOCRIT,HH [HEME] AM Lab 09/21/18 05:11 Ordered UA W/MICROSCOPIC [URIN] Stat Lab 09/19/18 12:35 Ordered Acetaminophen/HYDROcodone [[place] 325-10 MG] Med 09/19/18 15:07 Active 1 - 2 tab PO Q4H PRN Calcium Carbonate [Tums] Med 09/20/18 01:10 Active 1,000 mg PO Q6HR PRN Docusate Sodium [Colace] Med 09/19/18 21:00 Active 100 mg PO BID HYDROmorphone [Dilaudid] Med 09/20/18 08:00 Active 0.5 - 1 mg IVPUSH Q3H PRN Ketorolac [Toradol] Med 09/19/18 15:15 Active 30 mg IVPUSH Q6H Lactated Ringers [Ringers, Lactated] 1,000 ml Med 09/19/18 15:15 Active IV ASDIRECTED Lactated Ringers [Ringers, Lactated] 1,000 ml Med 09/19/18 15:30 Active IV ASDIRECTED Ondansetron [Zofran] Med 09/19/18 15:07 Active 4 mg IV Q8HR PRN Rivaroxaban [Xarelto] Med 09/20/18 09:00 Ordered 10 mg PO DAILY Sodium Chloride 0.9% [Saline Flush] Med 09/19/18 12:31 Active 10 ml FLUSH ASDIRECTED PRN Sodium Chloride 0.9% [Saline Flush] Med 09/19/18 12:31 Active 2.5 ml FLUSH ASDIRECTED PRN fentaNYL [Sublimaze] Med 09/19/18 18:02 Active 50 mcg IVPUSH Q5M PRN Antiembolic Hose [OM.PC] Routine Oth 09/19/18 15:02 Ordered Ice Therapy [OM.PC] Routine Oth 09/19/18 15:02 Ordered Obtain Home Medication List [OM.PC] Routine Oth 09/19/18 15:02 Ordered Pulse Oximetry Continuous Monitoring [OM.PC] Routine Oth 09/19/18 18:50 Ordered Saline Lock Insert [OM.PC] Stat Oth 09/19/18 12:31 Ordered Sequential Compression Device [OM.PC] Routine Oth 09/19/18 15:02 Ordered Medication Orders Hydrocodone Bitart/Acetaminophen ([place] 325-10 Mg) 1 - 2 tab PO Q4H PRN PRN Reason: Pain Last Admin: 09/20/18 08:02 Dose: 2 tab Admin: 09/20/18 03:39 Dose: 1 tab Calcium Carbonate/Glycine (Tums) 1,000 mg PO Q6HR PRN PRN Reason: Indigestion Last Admin: 09/20/18 01:42 Dose: 1,000 mg Docusate Sodium (Colace) 100 mg PO BID JOSE Last Admin: 09/20/18 08:03 Dose: 100 mg Admin: 09/19/18 21:50 Dose: Fentanyl (Sublimaze) 50 mcg IVPUSH Q5M PRN PRN Reason: Pain (severe 7-10) Stop: 09/20/18 18:02 Hydromorphone HCl (Dilaudid) 0.5 - 1 mg IVPUSH Q3H PRN PRN Reason: Pain Lactated Ringer's (Ringers, Lactated) 1,000 mls @ 125 mls/hr IV ASDIRECTED [facility] Last Admin: 09/19/18 15:36 Dose: 125 mls/hr Lactated Ringer's (Ringers, Lactated) 1,000 mls @ 125 mls/hr IV ASDIRECTED [facility] Ketorolac Tromethamine (Toradol) 30 mg IVPUSH Q6H [facility] Last Admin: 09/20/18 03:39 Dose: 30 mg Admin: 09/19/18 20:45 Dose: 30 mg Admin: 09/19/18 15:38 Dose: Ondansetron HCl (Zofran) 4 mg IV Q8HR PRN PRN Reason: NAUSEA/VOMITING Last Admin: 09/19/18 20:54 Dose: 4 mg Rivaroxaban (Xarelto) 10 mg PO DAILY [facility] Sodium Chloride (Saline Flush) 10 ml FLUSH ASDIRECTED PRN PRN Reason: Keep Vein Open Last Admin: 09/19/18 12:43 Dose: 10 ml Sodium Chloride (Saline Flush) 2.5 ml FLUSH ASDIRECTED PRN PRN Reason: Keep Vein Open Last Admin: 09/19/18 12:43 Dose: 2.5 ml - Assessment Assessment (Free Text/Narrative):: s/p CR insertion CM nail R subtroch femur fx R intra-articular distal radius fx, scaphoid fx - Plan Plan (Free Text/Narrative):: continue pain management Xarelto 10mg PO daily as DVT prophylaxis NWB RUE WBAT RLE - use platform walker for RUE PT today will change dressings prior to discharge, likely will transition to gauze/X- span for distal incision post-op f/u has been arranged with orthopedic clinic will continue to follow until d/ch <Lakeshia Issa R - Last Filed: 09/20/18 17:16> - Patient Data Vitals - Most Recent: Last Vital Signs Temp 98.1 F 09/20/18 16:00 Pulse 97 09/20/18 16:00 Resp 16 09/20/18 16:00 BP 96/58 L 09/20/18 16:00 Pulse Ox 94 L 09/20/18 16:00 I&O - Last 24 Hours: Intake & Output 09/20/18 09/20/18 09/20/18 06:59 14:59 22:59 Intake Total 9217 820 5171 Output Total 500 Balance 7587 722 2075 Lab Results Last 24 Hrs: Laboratory Results - last 24 hr 09/20/18 09/20/18 Range/Units 05:23 14:20 Hgb 10.8 L (13.0-17.0) g/dL Hct 32.0 L (38.0-50.0) % Urine Color YELLOW Urine Appearance CLEAR Urine pH 6.0 (5.0-8.0) Ur Specific [place] 1.025 (1.001-1.035) Urine Protein NEGATIVE (NEGATIVE) mg/dL Urine Glucose (UA) NEGATIVE (NEGATIVE) mg/dL Urine Ketones NEGATIVE (NEGATIVE) mg/dL Urine Occult Blood MODERATE H (NEGATIVE) Urine Nitrite NEGATIVE (NEGATIVE) Urine Bilirubin NEGATIVE (NEGATIVE) Urine Urobilinogen 0.2 (<2.0) EU/dL Ur Leukocyte Esterase NEGATIVE (NEGATIVE) Urine RBC 8-10 (0-2/HPF) Urine WBC 1-3 (0-5/HPF) Ur Epithelial Cells FEW (NONE-FEW) Urine Bacteria FEW (NEGATIVE) Hyaline Casts 0-2 (0-2/LPF) Urine Mucus LIGHT (NONE-MOD) Urine Sperm OCCASIONAL (NEGATIVE) Med Orders - Current: Current Medications Hydrocodone Bitart/Acetaminophen ([place] 325-10 Mg) 1 - 2 tab PO Q4H PRN PRN Reason: Pain Last Admin: 09/20/18 12:12 Dose: 2 tab Bacitracin (Bacitracin Oint) 1 gm TOP TID [facility] Last Admin: 09/20/18 14:47 Dose: 1 gm Calcium Carbonate/Glycine (Tums) 1,000 mg PO Q6HR PRN PRN Reason: Indigestion Last Admin: 09/20/18 01:42 Dose: 1,000 mg Docusate Sodium (Colace) 100 mg PO BID [facility] Last Admin: 09/20/18 08:03 Dose: 100 mg Fentanyl (Sublimaze) 50 mcg IVPUSH Q5M PRN PRN Reason: Pain (severe 7-10) Stop: 09/20/18 18:02 Hydromorphone HCl (Dilaudid) 0.5 - 1 mg IVPUSH Q3H PRN PRN Reason: Pain Lactated Ringer's (Ringers, Lactated) 1,000 mls @ 125 mls/hr IV ASDIRECTED [facility] Last Admin: 09/19/18 15:36 Dose: 125 mls/hr Lactated Ringer's (Ringers, Lactated) 1,000 mls @ 125 mls/hr IV ASDIRECTED [facility] Last Admin: 09/20/18 15:06 Dose: 125 mls/hr Ketorolac Tromethamine (Toradol) 30 mg IVPUSH Q6H [facility] Last Admin: 09/20/18 14:41 Dose: 30 mg Metoclopramide HCl (Reglan) 5 mg IVPUSH Q6H PRN PRN Reason: Nausea Ondansetron HCl (Zofran) 4 mg IV Q8HR PRN PRN Reason: NAUSEA/VOMITING Last Admin: 09/19/18 20:54 Dose: 4 mg Pantoprazole Sodium (Protonix) 40 mg PO DAILY [facility] Last Admin: 09/20/18 11:32 Dose: 40 mg Polyethylene Glycol (Miralax) 17 gm PO DAILY [facility] Last Admin: 09/20/18 11:32 Dose: 17 gm Rivaroxaban (Xarelto) 10 mg PO DAILY [facility] Last Admin: 09/20/18 09:20 Dose: 10 mg Scopolamine (Transderm-Scop) 1.5 mg TRDERM Q72H PRN PRN Reason: Nausea Sodium Chloride (Saline Flush) 10 ml FLUSH ASDIRECTED PRN PRN Reason: Keep Vein Open Last Admin: 09/19/18 12:43 Dose: 10 ml Sodium Chloride (Saline Flush) 2.5 ml FLUSH ASDIRECTED PRN PRN Reason: Keep Vein Open Last Admin: 09/19/18 12:43 Dose: 2.5 ml Discontinued Medications Diazepam (Valium) 5 mg IV ONETIME ONE Stop: 09/19/18 12:39 Last Admin: 09/19/18 12:45 Dose: 5 mg Diphtheria/Tetanus/Acell Pertussis (Adacel) 0.5 ml IM .ONCE ONE Stop: 09/19/18 21:16 Last Admin: 09/19/18 21:44 Dose: 0.5 ml Fentanyl (Sublimaze) Confirm Administered Dose 250 mcg .ROUTE .STK-MED ONE Stop: 09/19/18 15:07 Heparin Sodium (Porcine) (Heparin Sodium) 5,000 units SUBCUT Q12H [facility] Last Admin: 09/20/18 15:44 Dose: Not Given Hydromorphone HCl (Dilaudid) 1 mg IVPUSH ONETIME ONE Stop: 09/19/18 12:32 Last Admin: 09/19/18 12:39 Dose: 1 mg Hydromorphone HCl (Dilaudid) Confirm Administered Dose 1 mg .ROUTE .STK-MED ONE Stop: 09/19/18 13:56 Last Admin: 09/19/18 14:00 Dose: Not Given Hydromorphone HCl (Dilaudid) 1 mg IVPUSH ONETIME ONE Stop: 09/19/18 14:00 Last Admin: 09/19/18 14:00 Dose: 1 mg Hydromorphone HCl (Dilaudid) 1 mg IVPUSH ONETIME ONE Stop: 09/19/18 14:29 Last Admin: 09/19/18 14:35 Dose: 1 mg Hydromorphone HCl (Dilaudid) 0.5 - 1 mg IVPUSH Q3H PRN PRN Reason: Pain Last Admin: 09/20/18 05:40 Dose: 0.5 mg Hydromorphone HCl (Dilaudid) 1 mg IVPUSH ONETIME ONE Stop: 09/19/18 15:27 Last Admin: 09/19/18 15:30 Dose: 1 mg Hydromorphone HCl (Dilaudid) Confirm Administered Dose 1 mg .ROUTE .STK-MED ONE Stop: 09/19/18 15:26 Last Admin: 09/19/18 15:37 Dose: Not Given Lidocaine HCl (Xylocaine-Mpf 1%) Confirm Administered Dose 5 mls @ as directed .ROUTE .STK-MED ONE Stop: 09/19/18 14:52 Last Admin: 09/19/18 15:38 Dose: Not Given Cefazolin Sodium/Dextrose 2 gm (/ Premix) 50 mls @ 100 mls/hr IV ONETIME ONE Stop: 09/19/18 15:36 Last Admin: 09/19/18 15:32 Dose: 100 mls/hr Cefazolin Sodium/Dextrose 2 gm (/ Premix) 50 mls @ 100 mls/hr IV Q8HR [facility] Stop: 09/20/18 14:29 Cefazolin Sodium/Dextrose 2 gm (/ Premix) 50 mls @ 100 mls/hr IV Q8HR [facility] Stop: 09/20/18 06:29 Last Admin: 09/20/18 05:39 Dose: 100 mls/hr Lidocaine (Xylocaine-Mpf 2%) Confirm Administered Dose 5 ml .ROUTE .STK-MED ONE Stop: 09/19/18 15:06 Lidocaine HCl (Xylocaine-Mpf 1%) 10 ml INJECT ONETIME ONE Stop: 09/19/18 14:52 Last Admin: 09/19/18 15:23 Dose: 10 ml Midazolam HCl (Versed 1 Mg/Ml) Confirm Administered Dose 2 mg .ROUTE .STK-MED ONE Stop: 09/19/18 15:07 Ondansetron HCl (Zofran) 4 mg IVPUSH ONETIME ONE Stop: 09/19/18 12:32 Last Admin: 09/19/18 12:39 Dose: 4 mg Ondansetron HCl (Zofran) Confirm Administered Dose 4 mg .ROUTE .STK-MED ONE Stop: 09/19/18 15:06 Phenylephrine HCl (Phenylephrine In Ns 100 Mcg/Ml) Confirm Administered Dose 1 mg .ROUTE .STK-MED ONE Stop: 09/19/18 16:30 Propofol (Diprivan 20 Ml) Confirm Administered Dose 200 mg .ROUTE .STK-MED ONE Stop: 09/19/18 15:07 Rocuronium [place] (Zemuron) Confirm Administered Dose 100 mg .ROUTE .STK-MED ONE Stop: 09/19/18 15:06 Succinylcholine Chloride (Succinylcholine Chloride) Confirm Administered Dose 200 mg .ROUTE .STK-MED ONE Stop: 09/19/18 15:06 - My Orders Last 24 Hours: Active Orders 24 hr Category Date Time Status Admission Status [Patient Status] [ADT] Routine ADT 09/19/18 20:55 Active Bradycardia-Neuroaxis [facility] [RC] ROUTINE Care 09/19/18 18:02 Active Hypertension-Neuroaxis [facility] [RC] ROUTINE Care 09/19/18 18:02 Active Hypotension-Neuroaxis [facility] [RC] ROUTINE Care 09/19/18 18:02 Active Overnight Pulse Oximetry [RC] Click to Edit Care 09/19/18 18:51 Active Vaccines to be Administered [RC] PER UNIT ROUTINE Care 09/19/18 19:00 Active PT Evaluation and Treatment [CONS] Routine Cons 09/20/18 09:00 Active HEMOGLOBIN/HEMATOCRIT,HH [HEME] AM Lab 09/21/18 05:11 Ordered Bacitracin [Bacitracin Oint] Med 09/20/18 14:00 Active 1 gm TOP TID Calcium Carbonate [Tums] Med 09/20/18 01:10 Active 1,000 mg PO Q6HR PRN Docusate Sodium [Colace] Med 09/19/18 21:00 Active 100 mg PO BID HYDROmorphone [Dilaudid] Med 09/20/18 08:00 Active 0.5 - 1 mg IVPUSH Q3H PRN Metoclopramide [Reglan] Med 09/20/18 10:27 Active 5 mg IVPUSH Q6H PRN Pantoprazole [ProTONIX] Med 09/20/18 10:30 Active 40 mg PO DAILY Polyethylene Glycol 3350 [MiraLAX] Med 09/20/18 10:30 Active 17 gm PO DAILY Rivaroxaban [Xarelto] Med 09/20/18 09:00 Active 10 mg PO DAILY Scopolamine [Transderm-Scop] Med 09/20/18 10:27 Active 1.5 mg TRDERM Q72H PRN fentaNYL [Sublimaze] Med 09/19/18 18:02 Active 50 mcg IVPUSH Q5M PRN Pulse Oximetry Continuous Monitoring [OM.PC] Routine Oth 09/19/18 18:50 Ordered Medication Orders Hydrocodone Bitart/Acetaminophen ([place] 325-10 Mg) 1 - 2 tab PO Q4H PRN PRN Reason: Pain Last Admin: 09/20/18 12:12 Dose: 2 tab Admin: 09/20/18 08:02 Dose: 2 tab Admin: 09/20/18 03:39 Dose: 1 tab Bacitracin (Bacitracin Oint) 1 gm TOP TID [facility] Last Admin: 09/20/18 14:47 Dose: 1 gm Calcium Carbonate/Glycine (Tums) 1,000 mg PO Q6HR PRN PRN Reason: Indigestion Last Admin: 09/20/18 01:42 Dose: 1,000 mg Docusate Sodium (Colace) 100 mg PO BID [facility] Last Admin: 09/20/18 08:03 Dose: 100 mg Admin: 09/19/18 21:50 Dose: Fentanyl (Sublimaze) 50 mcg IVPUSH Q5M PRN PRN Reason: Pain (severe 7-10) Stop: 09/20/18 18:02 Hydromorphone HCl (Dilaudid) 0.5 - 1 mg IVPUSH Q3H PRN PRN Reason: Pain Lactated Ringer's (Ringers, Lactated) 1,000 mls @ 125 mls/hr IV ASDIRECTED [facility] Last Admin: 09/19/18 15:36 Dose: 125 mls/hr Lactated Ringer's (Ringers, Lactated) 1,000 mls @ 125 mls/hr IV ASDIRECTED [facility] Last Admin: 09/20/18 15:06 Dose: 125 mls/hr Ketorolac Tromethamine (Toradol) 30 mg IVPUSH Q6H [facility] Last Admin: 09/20/18 14:41 Dose: 30 mg Admin: 09/20/18 09:25 Dose: 30 mg Admin: 09/20/18 03:39 Dose: 30 mg Admin: 09/19/18 20:45 Dose: 30 mg Admin: 09/19/18 15:38 Dose: Metoclopramide HCl (Reglan) 5 mg IVPUSH Q6H PRN PRN Reason: Nausea Ondansetron HCl (Zofran) 4 mg IV Q8HR PRN PRN Reason: NAUSEA/VOMITING Last Admin: 09/19/18 20:54 Dose: 4 mg Pantoprazole Sodium (Protonix) 40 mg PO DAILY [facility] Last Admin: 09/20/18 11:32 Dose: 40 mg Polyethylene Glycol (Miralax) 17 gm PO DAILY [facility] Last Admin: 09/20/18 11:32 Dose: 17 gm Rivaroxaban (Xarelto) 10 mg PO DAILY [facility] Last Admin: 09/20/18 09:20 Dose: 10 mg Scopolamine (Transderm-Scop) 1.5 mg TRDERM Q72H PRN PRN Reason: Nausea Sodium Chloride (Saline Flush) 10 ml FLUSH ASDIRECTED PRN PRN Reason: Keep Vein Open Last Admin: 09/19/18 12:43 Dose: 10 ml Sodium Chloride (Saline Flush) 2.5 ml FLUSH ASDIRECTED PRN PRN Reason: Keep Vein Open Last Admin: 09/19/18 12:43 Dose: 2.5 ml - Plan Plan (Free Text/Narrative):: 1330 Patient seen and examined. Agree with the above note. Patient continues to have some pain in the right hip. Appears to be controlled well with the oral pain medication. He was up with physical therapy earlier. He is progressing slowly with physical therapy. CT scan of the right wrist was reviewed. This does show a minimally displaced intra-articular fracture of the distal radius along with a nondisplaced fracture of the right scaphoid. We will continue the splint and plan for transition to a short arm cast on his postop visit to clinic. He will need to remain nonweightbearing on the right upper extremity. Will plan to keep overnight for additional pain control and further physical therapy. If he is doing well tomorrow, we will plan for discharge at that time. He was started on Xarelto today for DVT prophylaxis. adan
[2018-09-20] MEDS: Rivaroxaban 10 MG Tab PO SCH (09:20)
--- NOTE | 2018-09-20 10:25 | CR ---
EXAMINATION: Right hip HISTORY: Fracture COMPARISON: Same day TECHNIQUE: 6 fluoroscopic images provided FINDINGS/IMPRESSION: There is an intramedullary devyn noted traversing a proximal femoral fracture with an interlocking femoral neck component.
[2018-09-20] MEDS ORDERED: Metoclopramide 10 MG/2 ML SDV IVPUSH PRN (10:27)
[2018-09-20] MEDS ORDERED: Scopolamine 1.5 MG Transdermal Patch TRDERM PRN (10:27)
[2018-09-20] MEDS: Polyethylene Glycol 3350 Powder 17 GM Packet PO SCH (11:32)
[2018-09-20] MEDS: Pantoprazole 40 MG Tab.CR PO SCH (11:32)
--- NOTE | 2018-09-20 11:48 | CT ---
EXAMINATION: CT of the right wrist HISTORY: Evaluate fracture COMPARISON: 09/19/2018 TECHNIQUE: Axial CT imaging obtained through the right wrist without contrast. Coronal and sagittal reconstructions obtained. FINDINGS: There is a comminuted essentially nondisplaced intra-articular distal radius fracture identified. This extends to the articular surface in several planes and demonstrates a maximum widening of the articular margin of approximately 1 mm. There is also a hairline nondisplaced mid scaphoid fracture noted. Remaining osseous structures and joint spaces appear preserved. Bone mineralization is otherwise normal. IMPRESSION: 1. Comminuted nondisplaced intra-articular distal radius fracture. 2. Hairline nondisplaced mid scaphoid fracture.
--- NOTE | 2018-09-20 13:35 | PCM.SURGPN ---
- General Info Date of Service: 09/20/18 Functional Status: Reports: Other (Patient had surgery with orthopedics last night. Got up today with PT. Pain is well controlled when not moving. He complains of nausea and vomiting when attempting to eat. No bloating and still passing flatus. ) - Review of Systems General: Reports: No Symptoms HEENT: Reports: No Symptoms Pulmonary: Reports: No Symptoms Cardiovascular: Reports: No Symptoms Gastrointestinal: Reports: Nausea, Vomiting Genitourinary: Reports: No Symptoms Musculoskeletal: Reports: No Symptoms Skin: Reports: No Symptoms Neurological: Reports: No Symptoms Psychiatric: Reports: No Symptoms - Patient Data Vitals - Most Recent: Last Vital Signs Temp 37.0 C 09/20/18 11:53 Pulse 96 09/20/18 11:53 Resp 18 09/20/18 11:53 BP 103/58 L 09/20/18 11:53 Pulse Ox 92 L 09/20/18 11:53 Weight - Most Recent: 90.718 kg I&O - Last 24 Hours: Intake & Output 09/19/18 09/20/18 09/20/18 22:59 06:59 14:59 Intake Total 2100 1670 Output Total 300 Balance 1800 1670 Lab Results Last 24 Hrs: Laboratory Results - last 24 hr 09/19/18 09/19/18 09/20/18 Range/Units 12:42 12:42 05:23 WBC 10.37 (4.0-11.0) K/uL RBC 4.87 (4.50-5.90) M/uL Hgb 14.9 10.8 L (13.0-17.0) g/dL Hct 43.1 32.0 L (38.0-50.0) % MCV 88.5 (80.0-98.0) fL MCH 30.6 (27.0-32.0) pg MCHC 34.6 (31.0-37.0) g/dL RDW Std Deviation 39.8 (28.0-62.0) fl RDW Coeff of Demetrius 13 (11.0-15.0) % Plt Count 176 (150-400) K/uL MPV 10.20 (7.40-12.00) fL Add Manual Diff YES Neutrophils % (Manual) 49 (48.0-80.0) % Band Neutrophils % 1 % Lymphocytes % (Manual) 40 (16.0-40.0) % Monocytes % (Manual) 8 (0.0-15.0) % Eosinophils % (Manual) 1 (0.0-7.0) % Myelocytes % 1 % Nucleated RBC % 0.0 /100WBC Absolute Seg Neuts 5.1 (1.4-5.7) Band Neutrophils # 0.1 Lymphocytes # (Manual) 4.1 H (0.6-2.4) Monocytes # (Manual) 0.8 (0.0-0.8) Eosinophils # (Manual) 0.1 (0.0-0.7) Absolute Myelocytes 0.1 Nucleated RBCs # 0 K/uL Sodium 141 (136-148) mmol/L Potassium 3.8 (3.5-5.1) mmol/L Chloride 103 (98-107) mmol/L Carbon Dioxide 25.2 (21.0-32.0) mmol/L BUN 13 (7.0-18.0) mg/dL Creatinine 0.9 (0.8-1.3) mg/dL Est Cr Clr Drug Dosing 109.27 mL/min Estimated GFR (MDRD) > 60.0 ml/min Glucose 98 (74-106) mg/dL Calcium 8.7 (8.5-10.1) mg/dL Total Bilirubin 0.6 (0.2-1.0) mg/dL AST 44 H (15-37) IU/L ALT 88 H (14-63) IU/L Alkaline Phosphatase 43 L (46-116) U/L Total Protein 7.0 (6.4-8.2) g/dL Albumin 4.1 (3.4-5.0) g/dL Globulin 2.9 (2.6-4.0) g/dL Albumin/Globulin Ratio 1.4 (0.9-1.6) Med Orders - Current: Current Medications Hydrocodone Bitart/Acetaminophen ([place] 325-10 Mg) 1 - 2 tab PO Q4H PRN PRN Reason: Pain Last Admin: 09/20/18 12:12 Dose: 2 tab Calcium Carbonate/Glycine (Tums) 1,000 mg PO Q6HR PRN PRN Reason: Indigestion Last Admin: 09/20/18 01:42 Dose: 1,000 mg Docusate Sodium (Colace) 100 mg PO BID JOSE Last Admin: 09/20/18 08:03 Dose: 100 mg Fentanyl (Sublimaze) 50 mcg IVPUSH Q5M PRN PRN Reason: Pain (severe 7-10) Stop: 09/20/18 18:02 Hydromorphone HCl (Dilaudid) 0.5 - 1 mg IVPUSH Q3H PRN PRN Reason: Pain Lactated Ringer's (Ringers, Lactated) 1,000 mls @ 125 mls/hr IV ASDIRECTED [facility] Last Admin: 09/19/18 15:36 Dose: 125 mls/hr Lactated Ringer's (Ringers, Lactated) 1,000 mls @ 125 mls/hr IV ASDIRECTED [facility] Ketorolac Tromethamine (Toradol) 30 mg IVPUSH Q6H [facility] Last Admin: 09/20/18 09:25 Dose: 30 mg Metoclopramide HCl (Reglan) 5 mg IVPUSH Q6H PRN PRN Reason: Nausea Ondansetron HCl (Zofran) 4 mg IV Q8HR PRN PRN Reason: NAUSEA/VOMITING Last Admin: 09/19/18 20:54 Dose: 4 mg Pantoprazole Sodium (Protonix) 40 mg PO DAILY [facility] Last Admin: 09/20/18 11:32 Dose: 40 mg Polyethylene Glycol (Miralax) 17 gm PO DAILY [facility] Last Admin: 09/20/18 11:32 Dose: 17 gm Rivaroxaban (Xarelto) 10 mg PO DAILY [facility] Last Admin: 09/20/18 09:20 Dose: 10 mg Scopolamine (Transderm-Scop) 1.5 mg TRDERM Q72H PRN PRN Reason: Nausea Sodium Chloride (Saline Flush) 10 ml FLUSH ASDIRECTED PRN PRN Reason: Keep Vein Open Last Admin: 09/19/18 12:43 Dose: 10 ml Sodium Chloride (Saline Flush) 2.5 ml FLUSH ASDIRECTED PRN PRN Reason: Keep Vein Open Last Admin: 09/19/18 12:43 Dose: 2.5 ml Discontinued Medications Diazepam (Valium) 5 mg IV ONETIME ONE Stop: 09/19/18 12:39 Last Admin: 09/19/18 12:45 Dose: 5 mg Diphtheria/Tetanus/Acell Pertussis (Adacel) 0.5 ml IM .ONCE ONE Stop: 09/19/18 21:16 Last Admin: 09/19/18 21:44 Dose: 0.5 ml Fentanyl (Sublimaze) Confirm Administered Dose 250 mcg .ROUTE .STK-MED ONE Stop: 09/19/18 15:07 Hydromorphone HCl (Dilaudid) 1 mg IVPUSH ONETIME ONE Stop: 09/19/18 12:32 Last Admin: 09/19/18 12:39 Dose: 1 mg Hydromorphone HCl (Dilaudid) Confirm Administered Dose 1 mg .ROUTE .STK-MED ONE Stop: 09/19/18 13:56 Last Admin: 09/19/18 14:00 Dose: Not Given Hydromorphone HCl (Dilaudid) 1 mg IVPUSH ONETIME ONE Stop: 09/19/18 14:00 Last Admin: 09/19/18 14:00 Dose: 1 mg Hydromorphone HCl (Dilaudid) 1 mg IVPUSH ONETIME ONE Stop: 09/19/18 14:29 Last Admin: 09/19/18 14:35 Dose: 1 mg Hydromorphone HCl (Dilaudid) 0.5 - 1 mg IVPUSH Q3H PRN PRN Reason: Pain Last Admin: 09/20/18 05:40 Dose: 0.5 mg Hydromorphone HCl (Dilaudid) 1 mg IVPUSH ONETIME ONE Stop: 09/19/18 15:27 Last Admin: 09/19/18 15:30 Dose: 1 mg Hydromorphone HCl (Dilaudid) Confirm Administered Dose 1 mg .ROUTE .STK-MED ONE Stop: 09/19/18 15:26 Last Admin: 09/19/18 15:37 Dose: Not Given Lidocaine HCl (Xylocaine-Mpf 1%) Confirm Administered Dose 5 mls @ as directed .ROUTE .STK-MED ONE Stop: 09/19/18 14:52 Last Admin: 09/19/18 15:38 Dose: Not Given Cefazolin Sodium/Dextrose 2 gm (/ Premix) 50 mls @ 100 mls/hr IV ONETIME ONE Stop: 09/19/18 15:36 Last Admin: 09/19/18 15:32 Dose: 100 mls/hr Cefazolin Sodium/Dextrose 2 gm (/ Premix) 50 mls @ 100 mls/hr IV Q8HR [facility] Stop: 09/20/18 14:29 Cefazolin Sodium/Dextrose 2 gm (/ Premix) 50 mls @ 100 mls/hr IV Q8HR JOSE Stop: 09/20/18 06:29 Last Admin: 09/20/18 05:39 Dose: 100 mls/hr Lidocaine (Xylocaine-Mpf 2%) Confirm Administered Dose 5 ml .ROUTE .STK-MED ONE Stop: 09/19/18 15:06 Lidocaine HCl (Xylocaine-Mpf 1%) 10 ml INJECT ONETIME ONE Stop: 09/19/18 14:52 Last Admin: 09/19/18 15:23 Dose: 10 ml Midazolam HCl (Versed 1 Mg/Ml) Confirm Administered Dose 2 mg .ROUTE .STK-MED ONE Stop: 09/19/18 15:07 Ondansetron HCl (Zofran) 4 mg IVPUSH ONETIME ONE Stop: 09/19/18 12:32 Last Admin: 09/19/18 12:39 Dose: 4 mg Ondansetron HCl (Zofran) Confirm Administered Dose 4 mg .ROUTE .STK-MED ONE Stop: 09/19/18 15:06 Phenylephrine HCl (Phenylephrine In Ns 100 Mcg/Ml) Confirm Administered Dose 1 mg .ROUTE .STK-MED ONE Stop: 09/19/18 16:30 Propofol (Diprivan 20 Ml) Confirm Administered Dose 200 mg .ROUTE .STK-MED ONE Stop: 09/19/18 15:07 Rocuronium [place] (Zemuron) Confirm Administered Dose 100 mg .ROUTE .STK-MED ONE Stop: 09/19/18 15:06 Succinylcholine Chloride (Succinylcholine Chloride) Confirm Administered Dose 200 mg .ROUTE .STK-MED ONE Stop: 09/19/18 15:06 - Exam Wound/Incisions: Dressing Dry and Intact General: Alert, Oriented HEENT: Pupils Equal, Pupils Reactive, EOMI, Mucous Membr. Moist/[place], Other ( Incision on lateral eyebrow is well healing ) Neck: Supple Lungs: Clear to Auscultation, Normal Respiratory Effort Cardiovascular: Regular Rate, Regular Rhythm GI/Abdominal Exam: Soft, Non-Tender, No Distention, No Mass Extremities: Normal Inspection, Normal Range of Motion, No Pedal Edema, Normal Capillary Refill Skin: Warm, Dry, Intact Neurological: No New Focal Deficit Psy/Mental Status: Alert, Normal Affect, Normal Mood - Problem List & Annotations (1) Laceration SNOMED Code(s): 964408625 Code(s): JHR1180 - Status: Acute Current Visit: Yes (2) Closed right femoral fracture SNOMED Code(s): 85703288 Code(s): S72.91XA - UNSP FRACTURE OF RIGHT FEMUR, INIT FOR CLOS FX Status: Acute Current Visit: Yes Qualifiers: Encounter type: initial encounter Femur location: intertrochanteric Fracture alignment: displaced Qualified Code(s): S72.141A - Displaced intertrochanteric fracture of right femur, initial encounter for closed fracture (3) Hip fracture SNOMED Code(s): 285298253 Code(s): S72.009A - FRACTURE OF UNSP PART OF NECK OF UNSP FEMUR, INIT Status: Acute Priority: High Current Visit: Yes Qualifiers: Encounter type: initial encounter Fracture type: closed Laterality: right Qualified Code(s): S72.001A - Fracture of unspecified part of neck of right femur, initial encounter for closed fracture (4) Right wrist fracture SNOMED Code(s): 531829290, 961054093 Code(s): S62.101A - FRACTURE OF UNSP CARPAL BONE, RIGHT WRIST, INIT FOR CLOS FX Status: Acute Priority: Medium Current Visit: Yes Qualifiers: Encounter type: initial encounter Fracture type: closed Qualified Code(s) : S62.101A - Fracture of unspecified carpal bone, right wrist, initial encounter for closed fracture (5) Contusion SNOMED Code(s): 620467182 Code(s): T14.8 - OTHER INJURY OF UNSPECIFIED BODY REGION * DO NOT USE * Status: Acute Current Visit: No Qualifiers: Encounter type: initial encounter Contusion area: lower back Qualified Code(s): S30.0XXA - Contusion of lower back and pelvis, initial encounter - Problem List Review Problem List Initiated/Reviewed/Updated: Yes - My Orders Last 24 Hours: Active Orders 24 hr Category Date Time Status Admission Status [Patient Status] [ADT] Routine ADT 09/19/18 20:55 Active Activity as Tolerated [RC] .Routine Care 09/19/18 15:07 Active Antiembolic Devices [RC] PER UNIT ROUTINE Care 09/19/18 15:07 Active Bradycardia-Neuroaxis [employer] [RC] ROUTINE Care 09/19/18 18:02 Active Cardiac Monitoring [RC] . DIRECTED Care 09/19/18 12:33 Active Hypertension-Neuroaxis [employer] [RC] ROUTINE Care 09/19/18 18:02 Active Hypotension-Neuroaxis [employer] [RC] ROUTINE Care 09/19/18 18:02 Active Neurovascular Check [RC] Q4HR Care 09/19/18 15:02 Active Notify Provider Vital Signs [RC] ASDIRECTED Care 09/19/18 15:07 Active Overnight Pulse Oximetry [RC] Click to Edit Care 09/19/18 18:51 Active Vaccines to be Administered [RC] PER UNIT ROUTINE Care 09/19/18 19:00 Active Vital Signs [RC] Q4H Care 09/19/18 15:02 Active PT Evaluation and Treatment [CONS] Routine Cons 09/20/18 09:00 Active Regular Diet [DIET] Diet 09/19/18 Dinner Active HEMOGLOBIN/HEMATOCRIT,HH [HEME] AM Lab 09/21/18 05:11 Ordered UA W/MICROSCOPIC [URIN] Stat Lab 09/19/18 12:35 Ordered Acetaminophen/HYDROcodone [[place] 325-10 MG] Med 09/19/18 15:07 Active 1 - 2 tab PO Q4H PRN Calcium Carbonate [Tums] Med 09/20/18 01:10 Active 1,000 mg PO Q6HR PRN Docusate Sodium [Colace] Med 09/19/18 21:00 Active 100 mg PO BID HYDROmorphone [Dilaudid] Med 09/20/18 08:00 Active 0.5 - 1 mg IVPUSH Q3H PRN Ketorolac [Toradol] Med 09/19/18 15:15 Active 30 mg IVPUSH Q6H Lactated Ringers [Ringers, Lactated] 1,000 ml Med 09/19/18 15:15 Active IV ASDIRECTED Lactated Ringers [Ringers, Lactated] 1,000 ml Med 09/19/18 15:30 Active IV ASDIRECTED Metoclopramide [Reglan] Med 09/20/18 10:27 Active 5 mg IVPUSH Q6H PRN Ondansetron [Zofran] Med 09/19/18 15:07 Active 4 mg IV Q8HR PRN Pantoprazole [ProTONIX] Med 09/20/18 10:30 Active 40 mg PO DAILY Polyethylene Glycol 3350 [MiraLAX] Med 09/20/18 10:30 Active 17 gm PO DAILY Rivaroxaban [Xarelto] Med 09/20/18 09:00 Active 10 mg PO DAILY Scopolamine [Transderm-Scop] Med 09/20/18 10:27 Active 1.5 mg TRDERM Q72H PRN Sodium Chloride 0.9% [Saline Flush] Med 09/19/18 12:31 Active 10 ml FLUSH ASDIRECTED PRN Sodium Chloride 0.9% [Saline Flush] Med 09/19/18 12:31 Active 2.5 ml FLUSH ASDIRECTED PRN fentaNYL [Sublimaze] Med 09/19/18 18:02 Active 50 mcg IVPUSH Q5M PRN Antiembolic Hose [OM.PC] Routine Oth 09/19/18 15:02 Ordered Ice Therapy [OM.PC] Routine Oth 09/19/18 15:02 Ordered Obtain Home Medication List [OM.PC] Routine Oth 09/19/18 15:02 Ordered Pulse Oximetry Continuous Monitoring [OM.PC] Routine Oth 09/19/18 18:50 Ordered Saline Lock Insert [OM.PC] Stat Oth 09/19/18 12:31 Ordered Sequential Compression Device [OM.PC] Routine Oth 09/19/18 15:02 Ordered Medication Orders Hydrocodone Bitart/Acetaminophen ([place] 325-10 Mg) 1 - 2 tab PO Q4H PRN PRN Reason: Pain Last Admin: 09/20/18 12:12 Dose: 2 tab Admin: 09/20/18 08:02 Dose: 2 tab Admin: 09/20/18 03:39 Dose: 1 tab Calcium Carbonate/Glycine (Tums) 1,000 mg PO Q6HR PRN PRN Reason: Indigestion Last Admin: 09/20/18 01:42 Dose: 1,000 mg Docusate Sodium (Colace) 100 mg PO BID JOSE Last Admin: 09/20/18 08:03 Dose: 100 mg Admin: 09/19/18 21:50 Dose: Fentanyl (Sublimaze) 50 mcg IVPUSH Q5M PRN PRN Reason: Pain (severe 7-10) Stop: 09/20/18 18:02 Hydromorphone HCl (Dilaudid) 0.5 - 1 mg IVPUSH Q3H PRN PRN Reason: Pain Lactated Ringer's (Ringers, Lactated) 1,000 mls @ 125 mls/hr IV ASDIRECTED [facility] Last Admin: 09/19/18 15:36 Dose: 125 mls/hr Lactated Ringer's (Ringers, Lactated) 1,000 mls @ 125 mls/hr IV ASDIRECTED [facility] Ketorolac Tromethamine (Toradol) 30 mg IVPUSH Q6H [facility] Last Admin: 09/20/18 09:25 Dose: 30 mg Admin: 09/20/18 03:39 Dose: 30 mg Admin: 09/19/18 20:45 Dose: 30 mg Admin: 09/19/18 15:38 Dose: Metoclopramide HCl (Reglan) 5 mg IVPUSH Q6H PRN PRN Reason: Nausea Ondansetron HCl (Zofran) 4 mg IV Q8HR PRN PRN Reason: NAUSEA/VOMITING Last Admin: 09/19/18 20:54 Dose: 4 mg Pantoprazole Sodium (Protonix) 40 mg PO DAILY [facility] Last Admin: 09/20/18 11:32 Dose: 40 mg Polyethylene Glycol (Miralax) 17 gm PO DAILY [facility] Last Admin: 09/20/18 11:32 Dose: 17 gm Rivaroxaban (Xarelto) 10 mg PO DAILY [facility] Last Admin: 09/20/18 09:20 Dose: 10 mg Scopolamine (Transderm-Scop) 1.5 mg TRDERM Q72H PRN PRN Reason: Nausea Sodium Chloride (Saline Flush) 10 ml FLUSH ASDIRECTED PRN PRN Reason: Keep Vein Open Last Admin: 09/19/18 12:43 Dose: 10 ml Sodium Chloride (Saline Flush) 2.5 ml FLUSH ASDIRECTED PRN PRN Reason: Keep Vein Open Last Admin: 09/19/18 12:43 Dose: 2.5 ml - Plan Plan (Free Text/Narrative):: Pain: Toradol. IV Dilaudid. [place] CV: Stable. Slightly tachycardic. Improved this afternoon. Pulmonary: Encourage OOB activity and IS use. GI: Regular diet as tolerated. Miralax and dulcolax tablet. Scopolamine patch. IV zofran prn. IV reglan prn. Started pantoprazole for complaints of acid reflux. Renal: UOP adequate. Heme/ID: No need for antibiotics. Hgb dropped. Most likely post surgical. Will continue to monitor. Px: SCDs. Heparin SQ.
[2018-09-20] MEDS ORDERED: Heparin Sodium 5,000 Units/ML Vial SUBCUT SCH (13:45)
[2018-09-20] MEDS: Bacitracin Oint 28.35 GM Tube TOP SCH ×2 (14:47→23:00)
--- NOTE | 2018-09-20 15:06 | PCM48HPAN ---
Post Anesthesia Note - EVALUATION WITHIN 48HRS OF ANESTHETIC Vital Signs in Normal Range: Yes Patient Participated in Evaluation: Yes Respiratory Function Stable: Yes Airway Patent: Yes Cardiovascular Function Stable: Yes Hydration Status Stable: Yes Pain Control Satisfactory: Yes Nausea and Vomiting Control Satisfactory: Yes Mental Status Recovered: Yes Pulse Rate: 110 Resp Rate: 18 Blood Pressure: 128/68 - COMMENTS/OBSERVATIONS Free Text/Narrative:: Patient states he is doing well and denies any complaints.
[2018-09-20] MEDS ORDERED: diphenhydrAMINE 25 MG Cap PO PRN (19:14)
[2018-09-21] MEDS: Ketorolac 30 MG/ML SDV IVPUSH SCH ×3 (03:38→14:51)
[2018-09-21] MEDS: Acetaminophen/HYDROcodone 325-10 MG Tab PO PRN ×2 (03:38→10:36)
--- NOTE | 2018-09-21 07:58 | PCM.SURGPN ---
<River Marcos Jr - Last Filed: 09/21/18 08:00> - General Info Date of Service: 09/21/18 Date of Surgery/Procedure: 09/19/18 POD#: 2 Post-Op Diagnosis: Right femur fracture. - Review of Systems General: Denies: Fever, Chills Pulmonary: Denies: Shortness of Breath Cardiovascular: Denies: Chest Pain Gastrointestinal: Denies: Abdominal Pain Neurological: Denies: Numbness Systems Review Comment:: Pain comes and goes. As medications wear off it becomes severe. He ambulated a little yesterday, was very difficult for him. Denies any nausea or emesis, is tolerating his diet. No fevers, chills, chest pain, or SOB. He offered no other complaints, is just painful to try and increase activity. - Patient Data Vitals - Most Recent: Last Vital Signs Temp 98.2 F 09/21/18 04:00 Pulse 102 H 09/21/18 04:00 Resp 18 09/21/18 04:00 BP 123/74 09/21/18 04:00 Pulse Ox 94 L 09/21/18 04:00 Weight - Most Recent: 90.718 kg I&O - Last 24 Hours: Intake & Output 09/20/18 09/21/18 09/21/18 22:59 06:59 14:59 Intake Total 2669 1350 Output Total 500 1700 Balance 2169 -350 Lab Results Last 24 Hrs: Laboratory Results - last 24 hr 09/20/18 09/21/18 Range/Units 14:20 05:16 Hgb 8.3 L (13.0-17.0) g/dL Hct 24.8 L (38.0-50.0) % Urine Color YELLOW Urine Appearance CLEAR Urine pH 6.0 (5.0-8.0) Ur Specific [place] 1.025 (1.001-1.035) Urine Protein NEGATIVE (NEGATIVE) mg/dL Urine Glucose (UA) NEGATIVE (NEGATIVE) mg/dL Urine Ketones NEGATIVE (NEGATIVE) mg/dL Urine Occult Blood MODERATE H (NEGATIVE) Urine Nitrite NEGATIVE (NEGATIVE) Urine Bilirubin NEGATIVE (NEGATIVE) Urine Urobilinogen 0.2 (<2.0) EU/dL Ur Leukocyte Esterase NEGATIVE (NEGATIVE) Urine RBC 8-10 (0-2/HPF) Urine WBC 1-3 (0-5/HPF) Ur Epithelial Cells FEW (NONE-FEW) Urine Bacteria FEW (NEGATIVE) Hyaline Casts 0-2 (0-2/LPF) Urine Mucus LIGHT (NONE-MOD) Urine Sperm OCCASIONAL (NEGATIVE) Med Orders - Current: Current Medications Hydrocodone Bitart/Acetaminophen (Robinson 325-10 Mg) 1 - 2 tab PO Q4H PRN PRN Reason: Pain Last Admin: 09/21/18 03:38 Dose: 2 tab Bacitracin (Bacitracin Oint) 1 gm TOP TID [facility] Last Admin: 09/20/18 23:00 Dose: 1 gm Calcium Carbonate/Glycine (Tums) 1,000 mg PO Q6HR PRN PRN Reason: Indigestion Last Admin: 09/20/18 01:42 Dose: 1,000 mg Diphenhydramine HCl (Benadryl) 25 mg PO Q6H PRN PRN Reason: itchiness Last Admin: 09/20/18 20:40 Dose: 25 mg Docusate Sodium (Colace) 100 mg PO BID [facility] Last Admin: 09/20/18 20:42 Dose: 100 mg Hydromorphone HCl (Dilaudid) 0.5 - 1 mg IVPUSH Q3H PRN PRN Reason: Pain Last Admin: 09/20/18 20:45 Dose: 1 mg Ketorolac Tromethamine (Toradol) 30 mg IVPUSH Q6H [facility] Last Admin: 09/21/18 03:38 Dose: 30 mg Metoclopramide HCl (Reglan) 5 mg IVPUSH Q6H PRN PRN Reason: Nausea Ondansetron HCl (Zofran) 4 mg IV Q8HR PRN PRN Reason: NAUSEA/VOMITING Last Admin: 09/19/18 20:54 Dose: 4 mg Pantoprazole Sodium (Protonix) 40 mg PO DAILY [facility] Last Admin: 09/20/18 11:32 Dose: 40 mg Polyethylene Glycol (Miralax) 17 gm PO DAILY [facility] Last Admin: 09/20/18 11:32 Dose: 17 gm Rivaroxaban (Xarelto) 10 mg PO DAILY [facility] Last Admin: 09/20/18 09:20 Dose: 10 mg Scopolamine (Transderm-Scop) 1.5 mg TRDERM Q72H PRN PRN Reason: Nausea Sodium Chloride (Saline Flush) 10 ml FLUSH ASDIRECTED PRN PRN Reason: Keep Vein Open Last Admin: 09/19/18 12:43 Dose: 10 ml Sodium Chloride (Saline Flush) 2.5 ml FLUSH ASDIRECTED PRN PRN Reason: Keep Vein Open Last Admin: 09/19/18 12:43 Dose: 2.5 ml Discontinued Medications Diazepam (Valium) 5 mg IV ONETIME ONE Stop: 09/19/18 12:39 Last Admin: 09/19/18 12:45 Dose: 5 mg Diphtheria/Tetanus/Acell Pertussis (Adacel) 0.5 ml IM .ONCE ONE Stop: 09/19/18 21:16 Last Admin: 09/19/18 21:44 Dose: 0.5 ml Fentanyl (Sublimaze) Confirm Administered Dose 250 mcg .ROUTE .STK-MED ONE Stop: 09/19/18 15:07 Fentanyl (Sublimaze) 50 mcg IVPUSH Q5M PRN PRN Reason: Pain (severe 7-10) Stop: 09/20/18 18:02 Heparin Sodium (Porcine) (Heparin Sodium) 5,000 units SUBCUT Q12H [facility] Last Admin: 09/20/18 15:44 Dose: Not Given Hydromorphone HCl (Dilaudid) 1 mg IVPUSH ONETIME ONE Stop: 09/19/18 12:32 Last Admin: 09/19/18 12:39 Dose: 1 mg Hydromorphone HCl (Dilaudid) Confirm Administered Dose 1 mg .ROUTE .STK-MED ONE Stop: 09/19/18 13:56 Last Admin: 09/19/18 14:00 Dose: Not Given Hydromorphone HCl (Dilaudid) 1 mg IVPUSH ONETIME ONE Stop: 09/19/18 14:00 Last Admin: 09/19/18 14:00 Dose: 1 mg Hydromorphone HCl (Dilaudid) 1 mg IVPUSH ONETIME ONE Stop: 09/19/18 14:29 Last Admin: 09/19/18 14:35 Dose: 1 mg Hydromorphone HCl (Dilaudid) 0.5 - 1 mg IVPUSH Q3H PRN PRN Reason: Pain Last Admin: 09/20/18 05:40 Dose: 0.5 mg Hydromorphone HCl (Dilaudid) 1 mg IVPUSH ONETIME ONE Stop: 09/19/18 15:27 Last Admin: 09/19/18 15:30 Dose: 1 mg Hydromorphone HCl (Dilaudid) Confirm Administered Dose 1 mg .ROUTE .STK-MED ONE Stop: 09/19/18 15:26 Last Admin: 09/19/18 15:37 Dose: Not Given Lidocaine HCl (Xylocaine-Mpf 1%) Confirm Administered Dose 5 mls @ as directed .ROUTE .STK-MED ONE Stop: 09/19/18 14:52 Last Admin: 09/19/18 15:38 Dose: Not Given Cefazolin Sodium/Dextrose 2 gm (/ Premix) 50 mls @ 100 mls/hr IV ONETIME ONE Stop: 09/19/18 15:36 Last Admin: 09/19/18 15:32 Dose: 100 mls/hr Cefazolin Sodium/Dextrose 2 gm (/ Premix) 50 mls @ 100 mls/hr IV Q8HR [facility] Stop: 09/20/18 14:29 Lactated Ringer's (Ringers, Lactated) 1,000 mls @ 125 mls/hr IV ASDIRECTED [facility] Last Admin: 09/19/18 15:36 Dose: 125 mls/hr Lactated Ringer's (Ringers, Lactated) 1,000 mls @ 125 mls/hr IV ASDIRECTED [facility] Last Admin: 09/20/18 15:06 Dose: 125 mls/hr Cefazolin Sodium/Dextrose 2 gm (/ Premix) 50 mls @ 100 mls/hr IV Q8HR [facility] Stop: 09/20/18 06:29 Last Admin: 09/20/18 05:39 Dose: 100 mls/hr Lidocaine (Xylocaine-Mpf 2%) Confirm Administered Dose 5 ml .ROUTE .STK-MED ONE Stop: 09/19/18 15:06 Lidocaine HCl (Xylocaine-Mpf 1%) 10 ml INJECT ONETIME ONE Stop: 09/19/18 14:52 Last Admin: 09/19/18 15:23 Dose: 10 ml Midazolam HCl (Versed 1 Mg/Ml) Confirm Administered Dose 2 mg .ROUTE .STK-MED ONE Stop: 09/19/18 15:07 Ondansetron HCl (Zofran) 4 mg IVPUSH ONETIME ONE Stop: 09/19/18 12:32 Last Admin: 09/19/18 12:39 Dose: 4 mg Ondansetron HCl (Zofran) Confirm Administered Dose 4 mg .ROUTE .STK-MED ONE Stop: 09/19/18 15:06 Phenylephrine HCl (Phenylephrine In Ns 100 Mcg/Ml) Confirm Administered Dose 1 mg .ROUTE .STK-MED ONE Stop: 09/19/18 16:30 Propofol (Diprivan 20 Ml) Confirm Administered Dose 200 mg .ROUTE .STK-MED ONE Stop: 09/19/18 15:07 Rocuronium [place] (Zemuron) Confirm Administered Dose 100 mg .ROUTE .STK-MED ONE Stop: 09/19/18 15:06 Succinylcholine Chloride (Succinylcholine Chloride) Confirm Administered Dose 200 mg .ROUTE .STK-MED ONE Stop: 09/19/18 15:06 - Exam Physical Findings Comment:: He appears comfortable. Lying in bed. Breathing is non labored Abdomen is soft and painless with palpation Still very limited ROM of right hip and knee due to pain. Sensation is intact to the right and left lower extremities. No pitting edema to either of his lower extremities. The dressings on his right leg are intact and clean. - Problem List & Annotations (1) Right wrist fracture SNOMED Code(s): 233482164, 166609371 Code(s): S62.101A - FRACTURE OF UNSP CARPAL BONE, RIGHT WRIST, INIT FOR CLOS FX Status: Acute Priority: Medium Current Visit: Yes Qualifiers: Encounter type: initial encounter Fracture type: closed Qualified Code(s) : S62.101A - Fracture of unspecified carpal bone, right wrist, initial encounter for closed fracture (2) Hip fracture SNOMED Code(s): 821978718 Code(s): S72.009A - FRACTURE OF UNSP PART OF NECK OF UNSP FEMUR, INIT Status: Acute Priority: High Current Visit: Yes Qualifiers: Encounter type: initial encounter Fracture type: closed Laterality: right Qualified Code(s): S72.001A - Fracture of unspecified part of neck of right femur, initial encounter for closed fracture (3) Postoperative anemia due to acute blood loss SNOMED Code(s): 86103658637203447 Code(s): D62 - ACUTE POSTHEMORRHAGIC ANEMIA Status: Acute Priority: Low Current Visit: Yes Onset Date: ~09/19/18 - Problem List Review Problem List Initiated/Reviewed/Updated: Yes - My Orders Last 24 Hours: Active Orders 24 hr Category Date Time Status PT Evaluation and Treatment [CONS] Routine Cons 09/20/18 09:00 Active Bacitracin [Bacitracin Oint] Med 09/20/18 14:00 Active 1 gm TOP TID HYDROmorphone [Dilaudid] Med 09/20/18 08:00 Active 0.5 - 1 mg IVPUSH Q3H PRN Metoclopramide [Reglan] Med 09/20/18 10:27 Active 5 mg IVPUSH Q6H PRN Pantoprazole [ProTONIX] Med 09/20/18 10:30 Active 40 mg PO DAILY Polyethylene Glycol 3350 [MiraLAX] Med 09/20/18 10:30 Active 17 gm PO DAILY Rivaroxaban [Xarelto] Med 09/20/18 09:00 Active 10 mg PO DAILY Scopolamine [Transderm-Scop] Med 09/20/18 10:27 Active 1.5 mg TRDERM Q72H PRN diphenhydrAMINE [Benadryl] Med 09/20/18 19:14 Active 25 mg PO Q6H PRN Medication Orders Hydrocodone Bitart/Acetaminophen (Robinson 325-10 Mg) 1 - 2 tab PO Q4H PRN PRN Reason: Pain Last Admin: 09/21/18 03:38 Dose: 2 tab Admin: 09/20/18 18:19 Dose: 2 tab Admin: 09/20/18 12:12 Dose: 2 tab Admin: 09/20/18 08:02 Dose: 2 tab Admin: 09/20/18 03:39 Dose: 1 tab Bacitracin (Bacitracin Oint) 1 gm TOP TID [facility] Last Admin: 09/20/18 23:00 Dose: 1 gm Admin: 09/20/18 14:47 Dose: 1 gm Calcium Carbonate/Glycine (Tums) 1,000 mg PO Q6HR PRN PRN Reason: Indigestion Last Admin: 09/20/18 01:42 Dose: 1,000 mg Diphenhydramine HCl (Benadryl) 25 mg PO Q6H PRN PRN Reason: itchiness Last Admin: 09/20/18 20:40 Dose: 25 mg Docusate Sodium (Colace) 100 mg PO BID [facility] Last Admin: 09/20/18 20:42 Dose: 100 mg Admin: 09/20/18 08:03 Dose: 100 mg Admin: 09/19/18 21:50 Dose: Hydromorphone HCl (Dilaudid) 0.5 - 1 mg IVPUSH Q3H PRN PRN Reason: Pain Last Admin: 09/20/18 20:45 Dose: 1 mg Ketorolac Tromethamine (Toradol) 30 mg IVPUSH Q6H [facility] Last Admin: 09/21/18 03:38 Dose: 30 mg Admin: 09/20/18 20:42 Dose: 30 mg Admin: 09/20/18 14:41 Dose: 30 mg Admin: 09/20/18 09:25 Dose: 30 mg Admin: 09/20/18 03:39 Dose: 30 mg Admin: 09/19/18 20:45 Dose: 30 mg Admin: 09/19/18 15:38 Dose: Metoclopramide HCl (Reglan) 5 mg IVPUSH Q6H PRN PRN Reason: Nausea Ondansetron HCl (Zofran) 4 mg IV Q8HR PRN PRN Reason: NAUSEA/VOMITING Last Admin: 09/19/18 20:54 Dose: 4 mg Pantoprazole Sodium (Protonix) 40 mg PO DAILY [facility] Last Admin: 09/20/18 11:32 Dose: 40 mg Polyethylene Glycol (Miralax) 17 gm PO DAILY [facility] Last Admin: 09/20/18 11:32 Dose: 17 gm Rivaroxaban (Xarelto) 10 mg PO DAILY [facility] Last Admin: 09/20/18 09:20 Dose: 10 mg Scopolamine (Transderm-Scop) 1.5 mg TRDERM Q72H PRN PRN Reason: Nausea Sodium Chloride (Saline Flush) 10 ml FLUSH ASDIRECTED PRN PRN Reason: Keep Vein Open Last Admin: 09/19/18 12:43 Dose: 10 ml Sodium Chloride (Saline Flush) 2.5 ml FLUSH ASDIRECTED PRN PRN Reason: Keep Vein Open Last Admin: 09/19/18 12:43 Dose: 2.5 ml - Assessment Assessment (Free Text/Narrative):: POD 2 s/p closed reduction of right femur fracture with intramedullary nail. He is progressing appropriately. Still having issues with pain. Hgb is 8.3 today. - Plan Plan (Free Text/Narrative):: - Regular diet - Activity as tolerated, continue working with PT, needs to increase activity - PO and IV medications for pain - Miralax for bowel regimen - Xarelto for DVT prophylaxis - Will continue to trend Hgb, no transfusions for now - At discharge will place right wrist/arm in cast <Lakeshia Issa - Last Filed: 09/21/18 15:06> - Patient Data Vitals - Most Recent: Last Vital Signs Temp 98.3 F 09/21/18 08:00 Pulse 98 09/21/18 10:35 Resp 17 09/21/18 08:00 BP 115/58 L 09/21/18 10:35 Pulse Ox 92 L 09/21/18 08:00 I&O - Last 24 Hours: Intake & Output 09/21/18 09/21/18 09/21/18 06:59 14:59 22:59 Intake Total 1350 80 Output Total 1700 Balance -350 80 Lab Results Last 24 Hrs: Laboratory Results - last 24 hr 09/21/18 Range/Units 05:16 Hgb 8.3 L (13.0-17.0) g/dL Hct 24.8 L (38.0-50.0) % Med Orders - Current: Current Medications Bacitracin (Bacitracin Oint) 1 gm TOP TID [facility] Last Admin: 09/21/18 14:52 Dose: 1 gm Calcium Carbonate/Glycine (Tums) 1,000 mg PO Q6HR PRN PRN Reason: Indigestion Last Admin: 09/20/18 01:42 Dose: 1,000 mg Diphenhydramine HCl (Benadryl) 25 mg PO Q6H PRN PRN Reason: itchiness Last Admin: 09/20/18 20:40 Dose: 25 mg Docusate Sodium (Colace) 100 mg PO BID [facility] Last Admin: 09/21/18 08:31 Dose: 100 mg Hydromorphone HCl (Dilaudid) 0.5 - 1 mg IVPUSH Q3H PRN PRN Reason: Pain Last Admin: 09/20/18 20:45 Dose: 1 mg Ketorolac Tromethamine (Toradol) 30 mg IVPUSH Q6H [facility] Last Admin: 09/21/18 14:51 Dose: 30 mg Metoclopramide HCl (Reglan) 5 mg IVPUSH Q6H PRN PRN Reason: Nausea Ondansetron HCl (Zofran) 4 mg IV Q8HR PRN PRN Reason: NAUSEA/VOMITING Last Admin: 09/21/18 11:43 Dose: 4 mg Oxycodone/Acetaminophen (Percocet 325-5 Mg) 1 - 2 tab PO Q4H PRN PRN Reason: Pain Pantoprazole Sodium (Protonix) 40 mg PO DAILY [facility] Last Admin: 09/21/18 08:32 Dose: 40 mg Polyethylene Glycol (Miralax) 17 gm PO DAILY [facility] Last Admin: 09/21/18 08:31 Dose: 17 gm Rivaroxaban (Xarelto) 10 mg PO DAILY [facility] Last Admin: 09/21/18 08:32 Dose: 10 mg Scopolamine (Transderm-Scop) 1.5 mg TRDERM Q72H PRN PRN Reason: Nausea Sodium Chloride (Saline Flush) 10 ml FLUSH ASDIRECTED PRN PRN Reason: Keep Vein Open Last Admin: 09/19/18 12:43 Dose: 10 ml Sodium Chloride (Saline Flush) 2.5 ml FLUSH ASDIRECTED PRN PRN Reason: Keep Vein Open Last Admin: 09/19/18 12:43 Dose: 2.5 ml Discontinued Medications Hydrocodone Bitart/Acetaminophen (Robinson 325-10 Mg) 1 - 2 tab PO Q4H PRN PRN Reason: Pain Last Admin: 09/21/18 10:36 Dose: 2 tab Diazepam (Valium) 5 mg IV ONETIME ONE Stop: 09/19/18 12:39 Last Admin: 09/19/18 12:45 Dose: 5 mg Diphtheria/Tetanus/Acell Pertussis (Adacel) 0.5 ml IM .ONCE ONE Stop: 09/19/18 21:16 Last Admin: 09/19/18 21:44 Dose: 0.5 ml Fentanyl (Sublimaze) Confirm Administered Dose 250 mcg .ROUTE .STK-MED ONE Stop: 09/19/18 15:07 Fentanyl (Sublimaze) 50 mcg IVPUSH Q5M PRN PRN Reason: Pain (severe 7-10) Stop: 09/20/18 18:02 Heparin Sodium (Porcine) (Heparin Sodium) 5,000 units SUBCUT Q12H [facility] Last Admin: 09/20/18 15:44 Dose: Not Given Hydromorphone HCl (Dilaudid) 1 mg IVPUSH ONETIME ONE Stop: 09/19/18 12:32 Last Admin: 09/19/18 12:39 Dose: 1 mg Hydromorphone HCl (Dilaudid) Confirm Administered Dose 1 mg .ROUTE .STK-MED ONE Stop: 09/19/18 13:56 Last Admin: 09/19/18 14:00 Dose: Not Given Hydromorphone HCl (Dilaudid) 1 mg IVPUSH ONETIME ONE Stop: 09/19/18 14:00 Last Admin: 09/19/18 14:00 Dose: 1 mg Hydromorphone HCl (Dilaudid) 1 mg IVPUSH ONETIME ONE Stop: 09/19/18 14:29 Last Admin: 09/19/18 14:35 Dose: 1 mg Hydromorphone HCl (Dilaudid) 0.5 - 1 mg IVPUSH Q3H PRN PRN Reason: Pain Last Admin: 09/20/18 05:40 Dose: 0.5 mg Hydromorphone HCl (Dilaudid) 1 mg IVPUSH ONETIME ONE Stop: 09/19/18 15:27 Last Admin: 09/19/18 15:30 Dose: 1 mg Hydromorphone HCl (Dilaudid) Confirm Administered Dose 1 mg .ROUTE .STK-MED ONE Stop: 09/19/18 15:26 Last Admin: 09/19/18 15:37 Dose: Not Given Lidocaine HCl (Xylocaine-Mpf 1%) Confirm Administered Dose 5 mls @ as directed .ROUTE .STK-MED ONE Stop: 09/19/18 14:52 Last Admin: 09/19/18 15:38 Dose: Not Given Cefazolin Sodium/Dextrose 2 gm (/ Premix) 50 mls @ 100 mls/hr IV ONETIME ONE Stop: 09/19/18 15:36 Last Admin: 09/19/18 15:32 Dose: 100 mls/hr Cefazolin Sodium/Dextrose 2 gm (/ Premix) 50 mls @ 100 mls/hr IV Q8HR [facility] Stop: 09/20/18 14:29 Lactated Ringer's (Ringers, Lactated) 1,000 mls @ 125 mls/hr IV ASDIRECTED [facility] Last Admin: 09/19/18 15:36 Dose: 125 mls/hr Lactated Ringer's (Ringers, Lactated) 1,000 mls @ 125 mls/hr IV ASDIRECTED [facility] Last Admin: 09/20/18 15:06 Dose: 125 mls/hr Cefazolin Sodium/Dextrose 2 gm (/ Premix) 50 mls @ 100 mls/hr IV Q8HR [facility] Stop: 09/20/18 06:29 Last Admin: 09/20/18 05:39 Dose: 100 mls/hr Lidocaine (Xylocaine-Mpf 2%) Confirm Administered Dose 5 ml .ROUTE .STK-MED ONE Stop: 09/19/18 15:06 Lidocaine HCl (Xylocaine-Mpf 1%) 10 ml INJECT ONETIME ONE Stop: 09/19/18 14:52 Last Admin: 09/19/18 15:23 Dose: 10 ml Midazolam HCl (Versed 1 Mg/Ml) Confirm Administered Dose 2 mg .ROUTE .STK-MED ONE Stop: 09/19/18 15:07 Ondansetron HCl (Zofran) 4 mg IVPUSH ONETIME ONE Stop: 09/19/18 12:32 Last Admin: 09/19/18 12:39 Dose: 4 mg Ondansetron HCl (Zofran) Confirm Administered Dose 4 mg .ROUTE .STK-MED ONE Stop: 09/19/18 15:06 Phenylephrine HCl (Phenylephrine In Ns 100 Mcg/Ml) Confirm Administered Dose 1 mg .ROUTE .STK-MED ONE Stop: 09/19/18 16:30 Propofol (Diprivan 20 Ml) Confirm Administered Dose 200 mg .ROUTE .STK-MED ONE Stop: 09/19/18 15:07 Rocuronium [place] (Zemuron) Confirm Administered Dose 100 mg .ROUTE .STK-MED ONE Stop: 09/19/18 15:06 Succinylcholine Chloride (Succinylcholine Chloride) Confirm Administered Dose 200 mg .ROUTE .STK-MED ONE Stop: 09/19/18 15:06 - Exam Physical Findings Comment:: AT/EHL/gastroc 5/5. Sensation intact. DP 2+. - My Orders Last 24 Hours: Active Orders 24 hr Category Date Time Status Acetaminophen/oxyCODONE [Percocet 325-5 MG] Med 09/21/18 14:26 Active 1 - 2 tab PO Q4H PRN diphenhydrAMINE [Benadryl] Med 09/20/18 19:14 Active 25 mg PO Q6H PRN Medication Orders Bacitracin (Bacitracin Oint) 1 gm TOP TID [facility] Last Admin: 09/21/18 14:52 Dose: 1 gm Admin: 09/21/18 08:00 Dose: 1 gm Admin: 09/20/18 23:00 Dose: 1 gm Admin: 09/20/18 14:47 Dose: 1 gm Calcium Carbonate/Glycine (Tums) 1,000 mg PO Q6HR PRN PRN Reason: Indigestion Last Admin: 09/20/18 01:42 Dose: 1,000 mg Diphenhydramine HCl (Benadryl) 25 mg PO Q6H PRN PRN Reason: itchiness Last Admin: 09/20/18 20:40 Dose: 25 mg Docusate Sodium (Colace) 100 mg PO BID [facility] Last Admin: 09/21/18 08:31 Dose: 100 mg Admin: 09/20/18 20:42 Dose: 100 mg Admin: 09/20/18 08:03 Dose: 100 mg Admin: 09/19/18 21:50 Dose: Hydromorphone HCl (Dilaudid) 0.5 - 1 mg IVPUSH Q3H PRN PRN Reason: Pain Last Admin: 09/20/18 20:45 Dose: 1 mg Ketorolac Tromethamine (Toradol) 30 mg IVPUSH Q6H [facility] Last Admin: 09/21/18 14:51 Dose: 30 mg Admin: 09/21/18 08:31 Dose: 30 mg Admin: 09/21/18 03:38 Dose: 30 mg Admin: 09/20/18 20:42 Dose: 30 mg Admin: 09/20/18 14:41 Dose: 30 mg Admin: 09/20/18 09:25 Dose: 30 mg Admin: 09/20/18 03:39 Dose: 30 mg Admin: 09/19/18 20:45 Dose: 30 mg Admin: 09/19/18 15:38 Dose: Metoclopramide HCl (Reglan) 5 mg IVPUSH Q6H PRN PRN Reason: Nausea Ondansetron HCl (Zofran) 4 mg IV Q8HR PRN PRN Reason: NAUSEA/VOMITING Last Admin: 09/21/18 11:43 Dose: 4 mg Admin: 09/19/18 20:54 Dose: 4 mg Oxycodone/Acetaminophen (Percocet 325-5 Mg) 1 - 2 tab PO Q4H PRN PRN Reason: Pain Pantoprazole Sodium (Protonix) 40 mg PO DAILY [facility] Last Admin: 09/21/18 08:32 Dose: 40 mg Admin: 09/20/18 11:32 Dose: 40 mg Polyethylene Glycol (Miralax) 17 gm PO DAILY [facility] Last Admin: 09/21/18 08:31 Dose: 17 gm Admin: 09/20/18 11:32 Dose: 17 gm Rivaroxaban (Xarelto) 10 mg PO DAILY [facility] Last Admin: 09/21/18 08:32 Dose: 10 mg Admin: 09/20/18 09:20 Dose: 10 mg Scopolamine (Transderm-Scop) 1.5 mg TRDERM Q72H PRN PRN Reason: Nausea Sodium Chloride (Saline Flush) 10 ml FLUSH ASDIRECTED PRN PRN Reason: Keep Vein Open Last Admin: 09/19/18 12:43 Dose: 10 ml Sodium Chloride (Saline Flush) 2.5 ml FLUSH ASDIRECTED PRN PRN Reason: Keep Vein Open Last Admin: 09/19/18 12:43 Dose: 2.5 ml - Plan Plan (Free Text/Narrative):: 1500 Patient seen and examined. Agree with above note. C/o some pain in wrist and femur, pain meds do not seem to be helping full 4 hours. Has been up with PT. Denies CP, SOB. Hgb decreased to 8.3 today--asymptomatic. VSS. 1. watch hgb--recheck in am 2. add tramadol for breakthrough pain 3. continue PT 4. possible discharge home tomorrow 5. place cast at first postop visit adan
[2018-09-21] MEDS: Bacitracin Oint 28.35 GM Tube TOP SCH ×3 (08:00→22:32)
--- NOTE | 2018-09-21 08:11 | PCM.SN ---
- Free Text/Narrative Note: Patient was discussed with Dr. Issa the orthopedic surgeon. Since this is an isolated orthopedic injury she will take over care of this patient. I will sign off today.
[2018-09-21] MEDS: Docusate Sodium 100 MG Cap PO SCH ×2 (08:31→21:13)
[2018-09-21] MEDS: Polyethylene Glycol 3350 Powder 17 GM Packet PO SCH (08:31)
[2018-09-21] MEDS: Pantoprazole 40 MG Tab.CR PO SCH (08:32)
[2018-09-21] MEDS: Rivaroxaban 10 MG Tab PO SCH (08:32)
[2018-09-21] MEDS: Ondansetron 4 MG/2 ML SDV IV PRN (11:43)
[2018-09-21] MEDS ORDERED: Acetaminophen/oxyCODONE 325-5 MG Tab PO PRN (14:26)
[2018-09-21] MEDS ORDERED: HYDROmorphone 1 MG/ML Syringe IVPUSH PRN (15:17)
[2018-09-21] MEDS: Acetaminophen 500 MG Tab PO SCH ×2 (16:12→21:12)
[2018-09-21] MEDS: traMADol 50 MG Tab PO PRN (19:30)
[2018-09-21] MEDS: oxyCODONE 5 MG Tab PO PRN (22:31)
[2018-09-22] MEDS: Acetaminophen 500 MG Tab PO SCH ×4 (03:49→20:43)
[2018-09-22] MEDS: Bacitracin Oint 28.35 GM Tube TOP SCH ×3 (05:30→21:55)
[2018-09-22] MEDS: traMADol 50 MG Tab PO PRN ×2 (07:04→20:43)
--- NOTE | 2018-09-22 07:19 | PCM.SURGPN ---
<River Marcos Jr - Last Filed: 09/22/18 07:21> - General Info Date of Service: 09/22/18 Date of Surgery/Procedure: 09/19/18 POD#: 3 Post-Op Diagnosis: Right femur fracture, Right wrist fracture - Review of Systems Systems Review Comment:: Patient states he had a rough night again, mostly due to his headache. Is feeling a little better now. He feels the pain in his right arm is still pretty bad. He did ambulate in his room once yesterday, still very limited activity. Denies any fevers or chills but did have a mildly elevated temp once overnight at 100.7. Had mild tachycardia as well, now resolved Denies any nausea or vomiting, chest pain, or SOB. - Patient Data Vitals - Most Recent: Last Vital Signs Temp 98.1 F 09/22/18 04:35 Pulse 88 09/22/18 04:35 Resp 18 09/22/18 04:35 BP 102/51 L 09/22/18 04:35 Pulse Ox 96 09/22/18 04:35 Weight - Most Recent: 90.718 kg I&O - Last 24 Hours: Intake & Output 09/21/18 09/22/18 09/22/18 22:59 06:59 14:59 Intake Total 600 1650 Output Total 730 1275 Balance -130 375 Lab Results Last 24 Hrs: Laboratory Results - last 24 hr 09/22/18 Range/Units 06:44 Hgb 8.2 L (13.0-17.0) g/dL Hct 24.1 L (38.0-50.0) % Med Orders - Current: Current Medications Acetaminophen (Tylenol Extra Strength) 1,000 mg PO Q6H JOSE Last Admin: 09/22/18 03:49 Dose: 1,000 mg Bacitracin (Bacitracin Oint) 1 gm TOP TID JOSE Last Admin: 09/22/18 05:30 Dose: 1 gm Calcium Carbonate/Glycine (Tums) 1,000 mg PO Q6HR PRN PRN Reason: Indigestion Last Admin: 09/20/18 01:42 Dose: 1,000 mg Diphenhydramine HCl (Benadryl) 25 mg PO Q6H PRN PRN Reason: itchiness Last Admin: 09/20/18 20:40 Dose: 25 mg Docusate Sodium (Colace) 100 mg PO BID [facility] Last Admin: 09/21/18 21:13 Dose: 100 mg Hydromorphone HCl (Dilaudid) 1 mg IVPUSH Q3H PRN PRN Reason: Pain Metoclopramide HCl (Reglan) 5 mg IVPUSH Q6H PRN PRN Reason: Nausea Ondansetron HCl (Zofran) 4 mg IV Q8HR PRN PRN Reason: NAUSEA/VOMITING Last Admin: 09/21/18 11:43 Dose: 4 mg Oxycodone HCl (Oxycodone) 5 mg PO Q4H PRN PRN Reason: severe pain Last Admin: 09/21/18 22:31 Dose: 5 mg Pantoprazole Sodium (Protonix) 40 mg PO DAILY [facility] Last Admin: 09/21/18 08:32 Dose: 40 mg Polyethylene Glycol (Miralax) 17 gm PO DAILY [facility] Last Admin: 09/21/18 08:31 Dose: 17 gm Rivaroxaban (Xarelto) 10 mg PO DAILY [facility] Last Admin: 09/21/18 08:32 Dose: 10 mg Scopolamine (Transderm-Scop) 1.5 mg TRDERM Q72H PRN PRN Reason: Nausea Sodium Chloride (Saline Flush) 10 ml FLUSH ASDIRECTED PRN PRN Reason: Keep Vein Open Last Admin: 09/19/18 12:43 Dose: 10 ml Sodium Chloride (Saline Flush) 2.5 ml FLUSH ASDIRECTED PRN PRN Reason: Keep Vein Open Last Admin: 09/19/18 12:43 Dose: 2.5 ml Tramadol HCl (Ultram) 100 mg PO Q6H PRN PRN Reason: moderate pain Last Admin: 09/22/18 07:04 Dose: 100 mg Discontinued Medications Hydrocodone Bitart/Acetaminophen (Pfeifer 325-10 Mg) 1 - 2 tab PO Q4H PRN PRN Reason: Pain Last Admin: 09/21/18 10:36 Dose: 2 tab Diazepam (Valium) 5 mg IV ONETIME ONE Stop: 09/19/18 12:39 Last Admin: 09/19/18 12:45 Dose: 5 mg Diphtheria/Tetanus/Acell Pertussis (Adacel) 0.5 ml IM .ONCE ONE Stop: 09/19/18 21:16 Last Admin: 09/19/18 21:44 Dose: 0.5 ml Fentanyl (Sublimaze) Confirm Administered Dose 250 mcg .ROUTE .STK-MED ONE Stop: 09/19/18 15:07 Fentanyl (Sublimaze) 50 mcg IVPUSH Q5M PRN PRN Reason: Pain (severe 7-10) Stop: 09/20/18 18:02 Heparin Sodium (Porcine) (Heparin Sodium) 5,000 units SUBCUT Q12H JOSE Last Admin: 09/20/18 15:44 Dose: Not Given Hydromorphone HCl (Dilaudid) 1 mg IVPUSH ONETIME ONE Stop: 09/19/18 12:32 Last Admin: 09/19/18 12:39 Dose: 1 mg Hydromorphone HCl (Dilaudid) Confirm Administered Dose 1 mg .ROUTE .STK-MED ONE Stop: 09/19/18 13:56 Last Admin: 09/19/18 14:00 Dose: Not Given Hydromorphone HCl (Dilaudid) 1 mg IVPUSH ONETIME ONE Stop: 09/19/18 14:00 Last Admin: 09/19/18 14:00 Dose: 1 mg Hydromorphone HCl (Dilaudid) 1 mg IVPUSH ONETIME ONE Stop: 09/19/18 14:29 Last Admin: 09/19/18 14:35 Dose: 1 mg Hydromorphone HCl (Dilaudid) 0.5 - 1 mg IVPUSH Q3H PRN PRN Reason: Pain Last Admin: 09/20/18 05:40 Dose: 0.5 mg Hydromorphone HCl (Dilaudid) 1 mg IVPUSH ONETIME ONE Stop: 09/19/18 15:27 Last Admin: 09/19/18 15:30 Dose: 1 mg Hydromorphone HCl (Dilaudid) Confirm Administered Dose 1 mg .ROUTE .STK-MED ONE Stop: 09/19/18 15:26 Last Admin: 09/19/18 15:37 Dose: Not Given Hydromorphone HCl (Dilaudid) 0.5 - 1 mg IVPUSH Q3H PRN PRN Reason: Pain Last Admin: 09/20/18 20:45 Dose: 1 mg Lidocaine HCl (Xylocaine-Mpf 1%) Confirm Administered Dose 5 mls @ as directed .ROUTE .STK-MED ONE Stop: 09/19/18 14:52 Last Admin: 09/19/18 15:38 Dose: Not Given Cefazolin Sodium/Dextrose 2 gm (/ Premix) 50 mls @ 100 mls/hr IV ONETIME ONE Stop: 09/19/18 15:36 Last Admin: 09/19/18 15:32 Dose: 100 mls/hr Cefazolin Sodium/Dextrose 2 gm (/ Premix) 50 mls @ 100 mls/hr IV Q8HR [facility] Stop: 09/20/18 14:29 Lactated Ringer's (Ringers, Lactated) 1,000 mls @ 125 mls/hr IV ASDIRECTED [facility] Last Admin: 09/19/18 15:36 Dose: 125 mls/hr Lactated Ringer's (Ringers, Lactated) 1,000 mls @ 125 mls/hr IV ASDIRECTED [facility] Last Admin: 09/20/18 15:06 Dose: 125 mls/hr Cefazolin Sodium/Dextrose 2 gm (/ Premix) 50 mls @ 100 mls/hr IV Q8HR [facility] Stop: 09/20/18 06:29 Last Admin: 09/20/18 05:39 Dose: 100 mls/hr Ketorolac Tromethamine (Toradol) 30 mg IVPUSH Q6H [facility] Last Admin: 09/21/18 14:51 Dose: 30 mg Lidocaine (Xylocaine-Mpf 2%) Confirm Administered Dose 5 ml .ROUTE .STK-MED ONE Stop: 09/19/18 15:06 Lidocaine HCl (Xylocaine-Mpf 1%) 10 ml INJECT ONETIME ONE Stop: 09/19/18 14:52 Last Admin: 09/19/18 15:23 Dose: 10 ml Midazolam HCl (Versed 1 Mg/Ml) Confirm Administered Dose 2 mg .ROUTE .STK-MED ONE Stop: 09/19/18 15:07 Ondansetron HCl (Zofran) 4 mg IVPUSH ONETIME ONE Stop: 09/19/18 12:32 Last Admin: 09/19/18 12:39 Dose: 4 mg Ondansetron HCl (Zofran) Confirm Administered Dose 4 mg .ROUTE .STK-MED ONE Stop: 09/19/18 15:06 Oxycodone/Acetaminophen (Percocet 325-5 Mg) 1 - 2 tab PO Q4H PRN PRN Reason: Pain Phenylephrine HCl (Phenylephrine In Ns 100 Mcg/Ml) Confirm Administered Dose 1 mg .ROUTE .STK-MED ONE Stop: 09/19/18 16:30 Propofol (Diprivan 20 Ml) Confirm Administered Dose 200 mg .ROUTE .STK-MED ONE Stop: 09/19/18 15:07 Rocuronium Roff (Zemuron) Confirm Administered Dose 100 mg .ROUTE .STK-MED ONE Stop: 09/19/18 15:06 Succinylcholine Chloride (Succinylcholine Chloride) Confirm Administered Dose 200 mg .ROUTE .STK-MED ONE Stop: 09/19/18 15:06 - Exam Physical Findings Comment:: He appears more comfortable today than he did yesterday. His breathing is non labored, has good respiratory excursion and not pain with his respirations. His right wrist is in good position with splint in place. Motor and sensation to his right hand/fingers is intact. The dressings on his right leg/hip incisions are in place, they are clean and dry. He moves his right leg a little better today than he has in past days. Motor and sensation are intact to his right lower extremity and to the left. I do not appreciate any pitting edema or swelling of either lower extremity. - Problem List & Annotations (1) Right wrist fracture SNOMED Code(s): 209232174, 282697035 Code(s): S62.101A - FRACTURE OF UNSP CARPAL BONE, RIGHT WRIST, INIT FOR CLOS FX Status: Acute Priority: Medium Current Visit: Yes Qualifiers: Encounter type: initial encounter Fracture type: closed Qualified Code(s) : S62.101A - Fracture of unspecified carpal bone, right wrist, initial encounter for closed fracture (2) Hip fracture SNOMED Code(s): 091208574 Code(s): S72.009A - FRACTURE OF UNSP PART OF NECK OF UNSP FEMUR, INIT Status: Acute Priority: High Current Visit: Yes Qualifiers: Encounter type: initial encounter Fracture type: closed Laterality: right Qualified Code(s): S72.001A - Fracture of unspecified part of neck of right femur, initial encounter for closed fracture (3) Postoperative anemia due to acute blood loss SNOMED Code(s): 49030172905014852 Code(s): D62 - ACUTE POSTHEMORRHAGIC ANEMIA Status: Acute Priority: Low Current Visit: Yes Onset Date: ~09/19/18 - Problem List Review Problem List Initiated/Reviewed/Updated: Yes - My Orders Last 24 Hours: Active Orders 24 hr Category Date Time Status HEMATOCRIT [HEME] DAILY Lab 09/23/18 06:30 Ordered HEMOGLOBIN [HEME] DAILY Lab 09/23/18 06:30 Ordered Acetaminophen [Tylenol Extra Strength] Med 09/21/18 15:15 Active 1,000 mg PO Q6H HYDROmorphone [Dilaudid] Med 09/21/18 15:17 Active 1 mg IVPUSH Q3H PRN oxyCODONE Med 09/21/18 15:13 Active 5 mg PO Q4H PRN traMADol [Ultram] Med 09/21/18 15:04 Active 100 mg PO Q6H PRN Medication Orders Acetaminophen (Tylenol Extra Strength) 1,000 mg PO Q6H [facility] Last Admin: 09/22/18 03:49 Dose: 1,000 mg Admin: 09/21/18 21:12 Dose: 1,000 mg Admin: 09/21/18 16:12 Dose: 1,000 mg Bacitracin (Bacitracin Oint) 1 gm TOP TID [facility] Last Admin: 09/22/18 05:30 Dose: 1 gm Admin: 09/21/18 22:32 Dose: 1 gm Admin: 09/21/18 14:52 Dose: 1 gm Admin: 09/21/18 08:00 Dose: 1 gm Admin: 09/20/18 23:00 Dose: 1 gm Admin: 09/20/18 14:47 Dose: 1 gm Calcium Carbonate/Glycine (Tums) 1,000 mg PO Q6HR PRN PRN Reason: Indigestion Last Admin: 09/20/18 01:42 Dose: 1,000 mg Diphenhydramine HCl (Benadryl) 25 mg PO Q6H PRN PRN Reason: itchiness Last Admin: 09/20/18 20:40 Dose: 25 mg Docusate Sodium (Colace) 100 mg PO BID [facility] Last Admin: 09/21/18 21:13 Dose: 100 mg Admin: 09/21/18 08:31 Dose: 100 mg Admin: 09/20/18 20:42 Dose: 100 mg Admin: 09/20/18 08:03 Dose: 100 mg Admin: 09/19/18 21:50 Dose: Hydromorphone HCl (Dilaudid) 1 mg IVPUSH Q3H PRN PRN Reason: Pain Metoclopramide HCl (Reglan) 5 mg IVPUSH Q6H PRN PRN Reason: Nausea Ondansetron HCl (Zofran) 4 mg IV Q8HR PRN PRN Reason: NAUSEA/VOMITING Last Admin: 09/21/18 11:43 Dose: 4 mg Admin: 09/19/18 20:54 Dose: 4 mg Oxycodone HCl (Oxycodone) 5 mg PO Q4H PRN PRN Reason: severe pain Last Admin: 09/21/18 22:31 Dose: 5 mg Pantoprazole Sodium (Protonix) 40 mg PO DAILY [facility] Last Admin: 09/21/18 08:32 Dose: 40 mg Admin: 09/20/18 11:32 Dose: 40 mg Polyethylene Glycol (Miralax) 17 gm PO DAILY [facility] Last Admin: 09/21/18 08:31 Dose: 17 gm Admin: 09/20/18 11:32 Dose: 17 gm Rivaroxaban (Xarelto) 10 mg PO DAILY [facility] Last Admin: 09/21/18 08:32 Dose: 10 mg Admin: 09/20/18 09:20 Dose: 10 mg Scopolamine (Transderm-Scop) 1.5 mg TRDERM Q72H PRN PRN Reason: Nausea Sodium Chloride (Saline Flush) 10 ml FLUSH ASDIRECTED PRN PRN Reason: Keep Vein Open Last Admin: 09/19/18 12:43 Dose: 10 ml Sodium Chloride (Saline Flush) 2.5 ml FLUSH ASDIRECTED PRN PRN Reason: Keep Vein Open Last Admin: 09/19/18 12:43 Dose: 2.5 ml Tramadol HCl (Ultram) 100 mg PO Q6H PRN PRN Reason: moderate pain Last Admin: 09/22/18 07:04 Dose: 100 mg Admin: 09/21/18 19:30 Dose: 100 mg - Assessment Assessment (Free Text/Narrative):: POD 3 s/p splinting of right wrist fracture and closed reduction of right femur fracture with Intra-medullary nail. Progress has been slow due to pain. - Plan Plan (Free Text/Narrative):: - Schedule Tylenol - PRN Oxycodone and Tramadol, PRN Dilaudid for breakthrough pain. - Regular diet - Continue PT. Patient needs to be up and out of bed. He needs to ambulate TID. - IS hourly, he has very limited activity and needs to prevent atelectasis and pneumonia. He should be using the IS 10 times every hour when he is awake. - Xarelto for DVT prophylaxis. - Continue to monitor vitals and I&O - I will discuss further plans with Dr. Issa. <Lakeshia Issa R - Last Filed: 09/22/18 18:08> - Patient Data Vitals - Most Recent: Last Vital Signs Temp 98.4 F 09/22/18 16:00 Pulse 99 09/22/18 16:00 Resp 16 09/22/18 16:00 BP 121/58 L 09/22/18 16:00 Pulse Ox 95 09/22/18 16:00 I&O - Last 24 Hours: Intake & Output 09/22/18 09/22/18 09/22/18 06:59 14:59 22:59 Intake Total 1650 600 Output Total 1275 950 Balance 375 -350 Lab Results Last 24 Hrs: Laboratory Results - last 24 hr 09/22/18 Range/Units 06:44 Hgb 8.2 L (13.0-17.0) g/dL Hct 24.1 L (38.0-50.0) % Med Orders - Current: Current Medications Acetaminophen (Tylenol Extra Strength) 1,000 mg PO Q6H [facility] Last Admin: 09/22/18 15:26 Dose: 1,000 mg Bacitracin (Bacitracin Oint) 1 gm TOP TID [facility] Last Admin: 09/22/18 14:00 Dose: 1 gm Calcium Carbonate/Glycine (Tums) 1,000 mg PO Q6HR PRN PRN Reason: Indigestion Last Admin: 09/20/18 01:42 Dose: 1,000 mg Diphenhydramine HCl (Benadryl) 25 mg PO Q6H PRN PRN Reason: itchiness Last Admin: 09/20/18 20:40 Dose: 25 mg Docusate Sodium (Colace) 100 mg PO BID [facility] Last Admin: 09/22/18 09:02 Dose: 100 mg Hydromorphone HCl (Dilaudid) 1 mg IVPUSH Q3H PRN PRN Reason: Pain Metoclopramide HCl (Reglan) 5 mg IVPUSH Q6H PRN PRN Reason: Nausea Ondansetron HCl (Zofran) 4 mg IV Q8HR PRN PRN Reason: NAUSEA/VOMITING Last Admin: 09/21/18 11:43 Dose: 4 mg Oxycodone HCl (Oxycodone) 5 mg PO Q4H PRN PRN Reason: severe pain Last Admin: 09/22/18 12:49 Dose: 5 mg Pantoprazole Sodium (Protonix) 40 mg PO DAILY [facility] Last Admin: 09/22/18 09:02 Dose: 40 mg Polyethylene Glycol (Miralax) 17 gm PO DAILY [facility] Last Admin: 09/22/18 09:02 Dose: 17 gm Rivaroxaban (Xarelto) 10 mg PO DAILY [facility] Last Admin: 09/22/18 09:02 Dose: 10 mg Scopolamine (Transderm-Scop) 1.5 mg TRDERM Q72H PRN PRN Reason: Nausea Sodium Chloride (Saline Flush) 10 ml FLUSH ASDIRECTED PRN PRN Reason: Keep Vein Open Last Admin: 09/19/18 12:43 Dose: 10 ml Sodium Chloride (Saline Flush) 2.5 ml FLUSH ASDIRECTED PRN PRN Reason: Keep Vein Open Last Admin: 09/19/18 12:43 Dose: 2.5 ml Tramadol HCl (Ultram) 100 mg PO Q6H PRN PRN Reason: moderate pain Last Admin: 09/22/18 07:04 Dose: 100 mg Discontinued Medications Hydrocodone Bitart/Acetaminophen (Pfeifer 325-10 Mg) 1 - 2 tab PO Q4H PRN PRN Reason: Pain Last Admin: 09/21/18 10:36 Dose: 2 tab Diazepam (Valium) 5 mg IV ONETIME ONE Stop: 09/19/18 12:39 Last Admin: 09/19/18 12:45 Dose: 5 mg Diphtheria/Tetanus/Acell Pertussis (Adacel) 0.5 ml IM .ONCE ONE Stop: 09/19/18 21:16 Last Admin: 09/19/18 21:44 Dose: 0.5 ml Fentanyl (Sublimaze) Confirm Administered Dose 250 mcg .ROUTE .[facility]-MED ONE Stop: 09/19/18 15:07 Fentanyl (Sublimaze) 50 mcg IVPUSH Q5M PRN PRN Reason: Pain (severe 7-10) Stop: 09/20/18 18:02 Heparin Sodium (Porcine) (Heparin Sodium) 5,000 units SUBCUT Q12H JOSE Last Admin: 09/20/18 15:44 Dose: Not Given Hydromorphone HCl (Dilaudid) 1 mg IVPUSH ONETIME ONE Stop: 09/19/18 12:32 Last Admin: 09/19/18 12:39 Dose: 1 mg Hydromorphone HCl (Dilaudid) Confirm Administered Dose 1 mg .ROUTE .STK-MED ONE Stop: 09/19/18 13:56 Last Admin: 09/19/18 14:00 Dose: Not Given Hydromorphone HCl (Dilaudid) 1 mg IVPUSH ONETIME ONE Stop: 09/19/18 14:00 Last Admin: 09/19/18 14:00 Dose: 1 mg Hydromorphone HCl (Dilaudid) 1 mg IVPUSH ONETIME ONE Stop: 09/19/18 14:29 Last Admin: 09/19/18 14:35 Dose: 1 mg Hydromorphone HCl (Dilaudid) 0.5 - 1 mg IVPUSH Q3H PRN PRN Reason: Pain Last Admin: 09/20/18 05:40 Dose: 0.5 mg Hydromorphone HCl (Dilaudid) 1 mg IVPUSH ONETIME ONE Stop: 09/19/18 15:27 Last Admin: 09/19/18 15:30 Dose: 1 mg Hydromorphone HCl (Dilaudid) Confirm Administered Dose 1 mg .ROUTE .STK-MED ONE Stop: 09/19/18 15:26 Last Admin: 09/19/18 15:37 Dose: Not Given Hydromorphone HCl (Dilaudid) 0.5 - 1 mg IVPUSH Q3H PRN PRN Reason: Pain Last Admin: 09/20/18 20:45 Dose: 1 mg Lidocaine HCl (Xylocaine-Mpf 1%) Confirm Administered Dose 5 mls @ as directed .ROUTE .STK-MED ONE Stop: 09/19/18 14:52 Last Admin: 09/19/18 15:38 Dose: Not Given Cefazolin Sodium/Dextrose 2 gm (/ Premix) 50 mls @ 100 mls/hr IV ONETIME ONE Stop: 09/19/18 15:36 Last Admin: 09/19/18 15:32 Dose: 100 mls/hr Cefazolin Sodium/Dextrose 2 gm (/ Premix) 50 mls @ 100 mls/hr IV Q8HR [facility] Stop: 09/20/18 14:29 Lactated Ringer's (Ringers, Lactated) 1,000 mls @ 125 mls/hr IV ASDIRECTED [facility] Last Admin: 09/19/18 15:36 Dose: 125 mls/hr Lactated Ringer's (Ringers, Lactated) 1,000 mls @ 125 mls/hr IV ASDIRECTED [facility] Last Admin: 09/20/18 15:06 Dose: 125 mls/hr Cefazolin Sodium/Dextrose 2 gm (/ Premix) 50 mls @ 100 mls/hr IV Q8HR [facility] Stop: 09/20/18 06:29 Last Admin: 09/20/18 05:39 Dose: 100 mls/hr Ketorolac Tromethamine (Toradol) 30 mg IVPUSH Q6H [facility] Last Admin: 09/21/18 14:51 Dose: 30 mg Lidocaine (Xylocaine-Mpf 2%) Confirm Administered Dose 5 ml .ROUTE .STK-MED ONE Stop: 09/19/18 15:06 Lidocaine HCl (Xylocaine-Mpf 1%) 10 ml INJECT ONETIME ONE Stop: 09/19/18 14:52 Last Admin: 09/19/18 15:23 Dose: 10 ml Midazolam HCl (Versed 1 Mg/Ml) Confirm Administered Dose 2 mg .ROUTE .STK-MED ONE Stop: 09/19/18 15:07 Ondansetron HCl (Zofran) 4 mg IVPUSH ONETIME ONE Stop: 09/19/18 12:32 Last Admin: 09/19/18 12:39 Dose: 4 mg Ondansetron HCl (Zofran) Confirm Administered Dose 4 mg .ROUTE .STK-MED ONE Stop: 09/19/18 15:06 Oxycodone/Acetaminophen (Percocet 325-5 Mg) 1 - 2 tab PO Q4H PRN PRN Reason: Pain Phenylephrine HCl (Phenylephrine In Ns 100 Mcg/Ml) Confirm Administered Dose 1 mg .ROUTE .STK-MED ONE Stop: 09/19/18 16:30 Propofol (Diprivan 20 Ml) Confirm Administered Dose 200 mg .ROUTE .STK-MED ONE Stop: 09/19/18 15:07 Rocuronium Roff (Zemuron) Confirm Administered Dose 100 mg .ROUTE .STK-MED ONE Stop: 09/19/18 15:06 Succinylcholine Chloride (Succinylcholine Chloride) Confirm Administered Dose 200 mg .ROUTE .STK-MED ONE Stop: 09/19/18 15:06 - My Orders Last 24 Hours: Active Orders 24 hr Category Date Time Status HEMATOCRIT [HEME] DAILY Lab 09/23/18 06:30 Ordered HEMOGLOBIN [HEME] DAILY Lab 09/23/18 06:30 Ordered Medication Orders Acetaminophen (Tylenol Extra Strength) 1,000 mg PO Q6H [facility] Last Admin: 09/22/18 15:26 Dose: 1,000 mg Admin: 09/22/18 09:01 Dose: 1,000 mg Admin: 09/22/18 03:49 Dose: 1,000 mg Admin: 09/21/18 21:12 Dose: 1,000 mg Admin: 09/21/18 16:12 Dose: 1,000 mg Bacitracin (Bacitracin Oint) 1 gm TOP TID [facility] Last Admin: 09/22/18 14:00 Dose: 1 gm Admin: 09/22/18 05:30 Dose: 1 gm Admin: 09/21/18 22:32 Dose: 1 gm Admin: 09/21/18 14:52 Dose: 1 gm Admin: 09/21/18 08:00 Dose: 1 gm Admin: 09/20/18 23:00 Dose: 1 gm Admin: 09/20/18 14:47 Dose: 1 gm Calcium Carbonate/Glycine (Tums) 1,000 mg PO Q6HR PRN PRN Reason: Indigestion Last Admin: 09/20/18 01:42 Dose: 1,000 mg Diphenhydramine HCl (Benadryl) 25 mg PO Q6H PRN PRN Reason: itchiness Last Admin: 09/20/18 20:40 Dose: 25 mg Docusate Sodium (Colace) 100 mg PO BID [facility] Last Admin: 09/22/18 09:02 Dose: 100 mg Admin: 09/21/18 21:13 Dose: 100 mg Admin: 09/21/18 08:31 Dose: 100 mg Admin: 09/20/18 20:42 Dose: 100 mg Admin: 09/20/18 08:03 Dose: 100 mg Admin: 09/19/18 21:50 Dose: Hydromorphone HCl (Dilaudid) 1 mg IVPUSH Q3H PRN PRN Reason: Pain Metoclopramide HCl (Reglan) 5 mg IVPUSH Q6H PRN PRN Reason: Nausea Ondansetron HCl (Zofran) 4 mg IV Q8HR PRN PRN Reason: NAUSEA/VOMITING Last Admin: 09/21/18 11:43 Dose: 4 mg Admin: 09/19/18 20:54 Dose: 4 mg Oxycodone HCl (Oxycodone) 5 mg PO Q4H PRN PRN Reason: severe pain Last Admin: 09/22/18 12:49 Dose: 5 mg Admin: 09/21/18 22:31 Dose: 5 mg Pantoprazole Sodium (Protonix) 40 mg PO DAILY [facility] Last Admin: 09/22/18 09:02 Dose: 40 mg Admin: 09/21/18 08:32 Dose: 40 mg Admin: 09/20/18 11:32 Dose: 40 mg Polyethylene Glycol (Miralax) 17 gm PO DAILY [facility] Last Admin: 09/22/18 09:02 Dose: 17 gm Admin: 09/21/18 08:31 Dose: 17 gm Admin: 09/20/18 11:32 Dose: 17 gm Rivaroxaban (Xarelto) 10 mg PO DAILY [facility] Last Admin: 09/22/18 09:02 Dose: 10 mg Admin: 09/21/18 08:32 Dose: 10 mg Admin: 09/20/18 09:20 Dose: 10 mg Scopolamine (Transderm-Scop) 1.5 mg TRDERM Q72H PRN PRN Reason: Nausea Sodium Chloride (Saline Flush) 10 ml FLUSH ASDIRECTED PRN PRN Reason: Keep Vein Open Last Admin: 09/19/18 12:43 Dose: 10 ml Sodium Chloride (Saline Flush) 2.5 ml FLUSH ASDIRECTED PRN PRN Reason: Keep Vein Open Last Admin: 09/19/18 12:43 Dose: 2.5 ml Tramadol HCl (Ultram) 100 mg PO Q6H PRN PRN Reason: moderate pain Last Admin: 09/22/18 07:04 Dose: 100 mg Admin: 09/21/18 19:30 Dose: 100 mg - Plan Plan (Free Text/Narrative):: 1800 Patient seen and examined. Agree with above note. Currently sitting up in chair. Progressing slowly with PT, did poorly with stairs. Required to stair climb at home. Pain better controlled with po meds today. No other complaints. VSS, afeb Hgb=8.2 1. acute post hemorrhagic anemia--asymptomatic, continue observation--redraw hgb only if become symptomatic 2. continue current pain management 3. Xarelto/SCD for DVT prophylaxis 4. dressing change today 5. continue PT-[facility] HUAN, [facility]BROBBY LLE 6. Soc service eval in am for ?home health/PT 7. plan for discharge home tomorrow bekak
[2018-09-22] MEDS: Rivaroxaban 10 MG Tab PO SCH (09:02)
[2018-09-22] MEDS: Pantoprazole 40 MG Tab.CR PO SCH (09:02)
[2018-09-22] MEDS: Polyethylene Glycol 3350 Powder 17 GM Packet PO SCH (09:02)
[2018-09-22] MEDS: Docusate Sodium 100 MG Cap PO SCH ×2 (09:02→20:43)
[2018-09-22] MEDS: oxyCODONE 5 MG Tab PO PRN ×2 (12:49→18:42)
[2018-09-23] MEDS: Acetaminophen 500 MG Tab PO SCH ×3 (04:11→15:17)
[2018-09-23] MEDS: Bacitracin Oint 28.35 GM Tube TOP SCH ×2 (06:13→14:04)
--- NOTE | 2018-09-23 06:46 | PCM.SURGPN ---
<River Marcos Jr - Last Filed: 09/23/18 06:41> - General Info Date of Service: 09/23/18 Date of Surgery/Procedure: 09/19/18 POD#: 4 Post-Op Diagnosis: Right femur fracture, Right wrist fracture. - Review of Systems Systems Review Comment:: Patient is doing much better today. His headache has improved. The pain in his right wrist and thigh is improved. He is tolerating a PO diet, no nausea or vomiting. His Hgb is stable. He is slowly increasing his activity. Denies fever, chills, chest pain, or SOB - Patient Data Vitals - Most Recent: Last Vital Signs Temp 99.2 F 09/23/18 03:39 Pulse 94 09/23/18 03:39 Resp 16 09/23/18 03:39 BP 112/55 L 09/23/18 03:39 Pulse Ox 93 L 09/23/18 03:39 Weight - Most Recent: 90.718 kg I&O - Last 24 Hours: Intake & Output 09/22/18 09/22/18 09/23/18 14:59 22:59 06:59 Intake Total 600 920 Output Total 950 1500 Balance -350 -580 Lab Results Last 24 Hrs: Laboratory Results - last 24 hr 09/22/18 09/23/18 Range/Units 06:44 05:10 Hgb 8.2 L 8.2 L (13.0-17.0) g/dL Hct 24.1 L 24.4 L (38.0-50.0) % Med Orders - Current: Current Medications Acetaminophen (Tylenol Extra Strength) 1,000 mg PO Q6H [facility] Last Admin: 09/23/18 04:11 Dose: 1,000 mg Bacitracin (Bacitracin Oint) 1 gm TOP TID [facility] Last Admin: 09/23/18 06:13 Dose: 1 gm Calcium Carbonate/Glycine (Tums) 1,000 mg PO Q6HR PRN PRN Reason: Indigestion Last Admin: 09/20/18 01:42 Dose: 1,000 mg Diphenhydramine HCl (Benadryl) 25 mg PO Q6H PRN PRN Reason: itchiness Last Admin: 09/20/18 20:40 Dose: 25 mg Docusate Sodium (Colace) 100 mg PO BID [facility] Last Admin: 09/22/18 20:43 Dose: 100 mg Hydromorphone HCl (Dilaudid) 1 mg IVPUSH Q3H PRN PRN Reason: Pain Metoclopramide HCl (Reglan) 5 mg IVPUSH Q6H PRN PRN Reason: Nausea Ondansetron HCl (Zofran) 4 mg IV Q8HR PRN PRN Reason: NAUSEA/VOMITING Last Admin: 09/21/18 11:43 Dose: 4 mg Oxycodone HCl (Oxycodone) 5 mg PO Q4H PRN PRN Reason: severe pain Last Admin: 09/22/18 18:42 Dose: 5 mg Pantoprazole Sodium (Protonix) 40 mg PO DAILY [facility] Last Admin: 09/22/18 09:02 Dose: 40 mg Polyethylene Glycol (Miralax) 17 gm PO DAILY [facility] Last Admin: 09/22/18 09:02 Dose: 17 gm Rivaroxaban (Xarelto) 10 mg PO DAILY [facility] Last Admin: 09/22/18 09:02 Dose: 10 mg Scopolamine (Transderm-Scop) 1.5 mg TRDERM Q72H PRN PRN Reason: Nausea Sodium Chloride (Saline Flush) 10 ml FLUSH ASDIRECTED PRN PRN Reason: Keep Vein Open Last Admin: 09/19/18 12:43 Dose: 10 ml Sodium Chloride (Saline Flush) 2.5 ml FLUSH ASDIRECTED PRN PRN Reason: Keep Vein Open Last Admin: 09/19/18 12:43 Dose: 2.5 ml Tramadol HCl (Ultram) 100 mg PO Q6H PRN PRN Reason: moderate pain Last Admin: 09/22/18 20:43 Dose: 100 mg Discontinued Medications Hydrocodone Bitart/Acetaminophen (Esparto 325-10 Mg) 1 - 2 tab PO Q4H PRN PRN Reason: Pain Last Admin: 09/21/18 10:36 Dose: 2 tab Diazepam (Valium) 5 mg IV ONETIME ONE Stop: 09/19/18 12:39 Last Admin: 09/19/18 12:45 Dose: 5 mg Diphtheria/Tetanus/Acell Pertussis (Adacel) 0.5 ml IM .ONCE ONE Stop: 09/19/18 21:16 Last Admin: 09/19/18 21:44 Dose: 0.5 ml Fentanyl (Sublimaze) Confirm Administered Dose 250 mcg .ROUTE .STK-MED ONE Stop: 09/19/18 15:07 Fentanyl (Sublimaze) 50 mcg IVPUSH Q5M PRN PRN Reason: Pain (severe 7-10) Stop: 09/20/18 18:02 Heparin Sodium (Porcine) (Heparin Sodium) 5,000 units SUBCUT Q12H [facility] Last Admin: 09/20/18 15:44 Dose: Not Given Hydromorphone HCl (Dilaudid) 1 mg IVPUSH ONETIME ONE Stop: 09/19/18 12:32 Last Admin: 09/19/18 12:39 Dose: 1 mg Hydromorphone HCl (Dilaudid) Confirm Administered Dose 1 mg .ROUTE .STK-MED ONE Stop: 09/19/18 13:56 Last Admin: 09/19/18 14:00 Dose: Not Given Hydromorphone HCl (Dilaudid) 1 mg IVPUSH ONETIME ONE Stop: 09/19/18 14:00 Last Admin: 09/19/18 14:00 Dose: 1 mg Hydromorphone HCl (Dilaudid) 1 mg IVPUSH ONETIME ONE Stop: 09/19/18 14:29 Last Admin: 09/19/18 14:35 Dose: 1 mg Hydromorphone HCl (Dilaudid) 0.5 - 1 mg IVPUSH Q3H PRN PRN Reason: Pain Last Admin: 09/20/18 05:40 Dose: 0.5 mg Hydromorphone HCl (Dilaudid) 1 mg IVPUSH ONETIME ONE Stop: 09/19/18 15:27 Last Admin: 09/19/18 15:30 Dose: 1 mg Hydromorphone HCl (Dilaudid) Confirm Administered Dose 1 mg .ROUTE .STK-MED ONE Stop: 09/19/18 15:26 Last Admin: 09/19/18 15:37 Dose: Not Given Hydromorphone HCl (Dilaudid) 0.5 - 1 mg IVPUSH Q3H PRN PRN Reason: Pain Last Admin: 09/20/18 20:45 Dose: 1 mg Lidocaine HCl (Xylocaine-Mpf 1%) Confirm Administered Dose 5 mls @ as directed .ROUTE .STK-MED ONE Stop: 09/19/18 14:52 Last Admin: 09/19/18 15:38 Dose: Not Given Cefazolin Sodium/Dextrose 2 gm (/ Premix) 50 mls @ 100 mls/hr IV ONETIME ONE Stop: 09/19/18 15:36 Last Admin: 09/19/18 15:32 Dose: 100 mls/hr Cefazolin Sodium/Dextrose 2 gm (/ Premix) 50 mls @ 100 mls/hr IV Q8HR [facility] Stop: 09/20/18 14:29 Lactated Ringer's (Ringers, Lactated) 1,000 mls @ 125 mls/hr IV ASDIRECTED [facility] Last Admin: 09/19/18 15:36 Dose: 125 mls/hr Lactated Ringer's (Ringers, Lactated) 1,000 mls @ 125 mls/hr IV ASDIRECTED [facility] Last Admin: 09/20/18 15:06 Dose: 125 mls/hr Cefazolin Sodium/Dextrose 2 gm (/ Premix) 50 mls @ 100 mls/hr IV Q8HR [facility] Stop: 09/20/18 06:29 Last Admin: 09/20/18 05:39 Dose: 100 mls/hr Ketorolac Tromethamine (Toradol) 30 mg IVPUSH Q6H [facility] Last Admin: 09/21/18 14:51 Dose: 30 mg Lidocaine (Xylocaine-Mpf 2%) Confirm Administered Dose 5 ml .ROUTE .STK-MED ONE Stop: 09/19/18 15:06 Lidocaine HCl (Xylocaine-Mpf 1%) 10 ml INJECT ONETIME ONE Stop: 09/19/18 14:52 Last Admin: 09/19/18 15:23 Dose: 10 ml Midazolam HCl (Versed 1 Mg/Ml) Confirm Administered Dose 2 mg .ROUTE .STK-MED ONE Stop: 09/19/18 15:07 Ondansetron HCl (Zofran) 4 mg IVPUSH ONETIME ONE Stop: 09/19/18 12:32 Last Admin: 09/19/18 12:39 Dose: 4 mg Ondansetron HCl (Zofran) Confirm Administered Dose 4 mg .ROUTE .STK-MED ONE Stop: 09/19/18 15:06 Oxycodone/Acetaminophen (Percocet 325-5 Mg) 1 - 2 tab PO Q4H PRN PRN Reason: Pain Phenylephrine HCl (Phenylephrine In Ns 100 Mcg/Ml) Confirm Administered Dose 1 mg .ROUTE .STK-MED ONE Stop: 09/19/18 16:30 Propofol (Diprivan 20 Ml) Confirm Administered Dose 200 mg .ROUTE .STK-MED ONE Stop: 09/19/18 15:07 Rocuronium [place] (Zemuron) Confirm Administered Dose 100 mg .ROUTE .STK-MED ONE Stop: 09/19/18 15:06 Succinylcholine Chloride (Succinylcholine Chloride) Confirm Administered Dose 200 mg .ROUTE .STK-MED ONE Stop: 09/19/18 15:06 - Exam Physical Findings Comment:: He appears very comfortable today. Interacting appropriately A&O. Breathing is non labored Abdomen is soft and painless with palpation. Right wrist is in a splint. He can move all fingers on the right hand and has good sensation to all fingers. The dressings on his right leg are intact and clean. He can flex his knee against gravity a little more today than yesterday. He has palpable bilateral DP pulses. No lower extremity edema on either leg. - Problem List & Annotations (1) Right wrist fracture SNOMED Code(s): 307840991, 628836273 Code(s): S62.101A - FRACTURE OF UNSP CARPAL BONE, RIGHT WRIST, INIT FOR CLOS FX Status: Acute Priority: Medium Current Visit: Yes Qualifiers: (2) Hip fracture SNOMED Code(s): 340050246 Code(s): S72.009A - FRACTURE OF UNSP PART OF NECK OF UNSP FEMUR, INIT Status: Acute Priority: High Current Visit: Yes Qualifiers: (3) Postoperative anemia due to acute blood loss SNOMED Code(s): 29459941794978817 Code(s): D62 - ACUTE POSTHEMORRHAGIC ANEMIA Status: Acute Priority: Low Current Visit: Yes Onset Date: ~09/19/18 - Problem List Review Problem List Initiated/Reviewed/Updated: Yes - My Orders Last 24 Hours: Active Orders 24 hr Category Date Time Status Dressing Change [Wound Care] [RC] DAILY Care 09/22/18 18:09 Active Medication Orders Acetaminophen (Tylenol Extra Strength) 1,000 mg PO Q6H [facility] Last Admin: 09/23/18 04:11 Dose: 1,000 mg Admin: 09/22/18 20:43 Dose: 1,000 mg Admin: 09/22/18 15:26 Dose: 1,000 mg Admin: 09/22/18 09:01 Dose: 1,000 mg Admin: 09/22/18 03:49 Dose: 1,000 mg Admin: 09/21/18 21:12 Dose: 1,000 mg Admin: 09/21/18 16:12 Dose: 1,000 mg Bacitracin (Bacitracin Oint) 1 gm TOP TID [facility] Last Admin: 09/23/18 06:13 Dose: 1 gm Admin: 09/22/18 21:55 Dose: 1 gm Admin: 09/22/18 14:00 Dose: 1 gm Admin: 09/22/18 05:30 Dose: 1 gm Admin: 09/21/18 22:32 Dose: 1 gm Admin: 09/21/18 14:52 Dose: 1 gm Admin: 09/21/18 08:00 Dose: 1 gm Admin: 09/20/18 23:00 Dose: 1 gm Admin: 09/20/18 14:47 Dose: 1 gm Calcium Carbonate/Glycine (Tums) 1,000 mg PO Q6HR PRN PRN Reason: Indigestion Last Admin: 09/20/18 01:42 Dose: 1,000 mg Diphenhydramine HCl (Benadryl) 25 mg PO Q6H PRN PRN Reason: itchiness Last Admin: 09/20/18 20:40 Dose: 25 mg Docusate Sodium (Colace) 100 mg PO BID [facility] Last Admin: 09/22/18 20:43 Dose: 100 mg Admin: 09/22/18 09:02 Dose: 100 mg Admin: 09/21/18 21:13 Dose: 100 mg Admin: 09/21/18 08:31 Dose: 100 mg Admin: 09/20/18 20:42 Dose: 100 mg Admin: 09/20/18 08:03 Dose: 100 mg Admin: 09/19/18 21:50 Dose: Hydromorphone HCl (Dilaudid) 1 mg IVPUSH Q3H PRN PRN Reason: Pain Metoclopramide HCl (Reglan) 5 mg IVPUSH Q6H PRN PRN Reason: Nausea Ondansetron HCl (Zofran) 4 mg IV Q8HR PRN PRN Reason: NAUSEA/VOMITING Last Admin: 09/21/18 11:43 Dose: 4 mg Admin: 09/19/18 20:54 Dose: 4 mg Oxycodone HCl (Oxycodone) 5 mg PO Q4H PRN PRN Reason: severe pain Last Admin: 09/22/18 18:42 Dose: 5 mg Admin: 09/22/18 12:49 Dose: 5 mg Admin: 09/21/18 22:31 Dose: 5 mg Pantoprazole Sodium (Protonix) 40 mg PO DAILY [facility] Last Admin: 09/22/18 09:02 Dose: 40 mg Admin: 09/21/18 08:32 Dose: 40 mg Admin: 09/20/18 11:32 Dose: 40 mg Polyethylene Glycol (Miralax) 17 gm PO DAILY [facility] Last Admin: 09/22/18 09:02 Dose: 17 gm Admin: 09/21/18 08:31 Dose: 17 gm Admin: 09/20/18 11:32 Dose: 17 gm Rivaroxaban (Xarelto) 10 mg PO DAILY [facility] Last Admin: 09/22/18 09:02 Dose: 10 mg Admin: 09/21/18 08:32 Dose: 10 mg Admin: 09/20/18 09:20 Dose: 10 mg Scopolamine (Transderm-Scop) 1.5 mg TRDERM Q72H PRN PRN Reason: Nausea Sodium Chloride (Saline Flush) 10 ml FLUSH ASDIRECTED PRN PRN Reason: Keep Vein Open Last Admin: 09/19/18 12:43 Dose: 10 ml Sodium Chloride (Saline Flush) 2.5 ml FLUSH ASDIRECTED PRN PRN Reason: Keep Vein Open Last Admin: 09/19/18 12:43 Dose: 2.5 ml Tramadol HCl (Ultram) 100 mg PO Q6H PRN PRN Reason: moderate pain Last Admin: 09/22/18 20:43 Dose: 100 mg Admin: 09/22/18 07:04 Dose: 100 mg Admin: 09/21/18 19:30 Dose: 100 mg - Assessment Assessment (Free Text/Narrative):: POD 4 s/p right wrist splinting and closed reduction internal fixation with IM nail for a right femur fracture. He is doing much better today. Pain is improved all around. He is ready for discharge. - Plan Plan (Free Text/Narrative):: Patient will discharge today. Please do not release him until Dr. Issa has come by and evaluated. We will have him follow up with us in the clinic for a post op check. He will continue PT upon discharge. He had questions regarding the possibility of having a few home health visits, we will look into this and try to arrange this for him. He should continue on the Xarelto until we give further instructions at follow up visits. <Lakeshia Issa R - Last Filed: 09/23/18 14:06> - Patient Data Vitals - Most Recent: Last Vital Signs Temp 97.5 F 09/23/18 12:00 Pulse 97 09/23/18 12:00 Resp 20 09/23/18 12:00 BP 108/59 L 09/23/18 12:00 Pulse Ox 94 L 09/23/18 12:00 I&O - Last 24 Hours: Intake & Output 09/22/18 09/23/18 09/23/18 22:59 06:59 14:59 Intake Total 600 920 Output Total 950 1500 Balance -350 -580 Lab Results Last 24 Hrs: Laboratory Results - last 24 hr 09/23/18 Range/Units 05:10 Hgb 8.2 L (13.0-17.0) g/dL Hct 24.4 L (38.0-50.0) % Med Orders - Current: Current Medications Acetaminophen (Tylenol Extra Strength) 1,000 mg PO Q6H [facility] Last Admin: 09/23/18 09:04 Dose: 1,000 mg Bacitracin (Bacitracin Oint) 1 gm TOP TID [facility] Last Admin: 09/23/18 06:13 Dose: 1 gm Calcium Carbonate/Glycine (Tums) 1,000 mg PO Q6HR PRN PRN Reason: Indigestion Last Admin: 09/20/18 01:42 Dose: 1,000 mg Diphenhydramine HCl (Benadryl) 25 mg PO Q6H PRN PRN Reason: itchiness Last Admin: 09/20/18 20:40 Dose: 25 mg Docusate Sodium (Colace) 100 mg PO BID [facility] Last Admin: 09/23/18 09:06 Dose: 100 mg Hydromorphone HCl (Dilaudid) 1 mg IVPUSH Q3H PRN PRN Reason: Pain Metoclopramide HCl (Reglan) 5 mg IVPUSH Q6H PRN PRN Reason: Nausea Ondansetron HCl (Zofran) 4 mg IV Q8HR PRN PRN Reason: NAUSEA/VOMITING Last Admin: 09/21/18 11:43 Dose: 4 mg Oxycodone HCl (Oxycodone) 5 mg PO Q4H PRN PRN Reason: severe pain Last Admin: 09/23/18 13:19 Dose: 5 mg Pantoprazole Sodium (Protonix) 40 mg PO DAILY [facility] Last Admin: 09/23/18 09:05 Dose: 40 mg Polyethylene Glycol (Miralax) 17 gm PO DAILY [facility] Last Admin: 09/23/18 09:04 Dose: 17 gm Rivaroxaban (Xarelto) 10 mg PO DAILY [facility] Last Admin: 09/23/18 09:05 Dose: 10 mg Scopolamine (Transderm-Scop) 1.5 mg TRDERM Q72H PRN PRN Reason: Nausea Sodium Chloride (Saline Flush) 10 ml FLUSH ASDIRECTED PRN PRN Reason: Keep Vein Open Last Admin: 09/19/18 12:43 Dose: 10 ml Sodium Chloride (Saline Flush) 2.5 ml FLUSH ASDIRECTED PRN PRN Reason: Keep Vein Open Last Admin: 09/19/18 12:43 Dose: 2.5 ml Tramadol HCl (Ultram) 100 mg PO Q6H PRN PRN Reason: moderate pain Last Admin: 09/23/18 10:46 Dose: 100 mg Discontinued Medications Hydrocodone Bitart/Acetaminophen (Esparto 325-10 Mg) 1 - 2 tab PO Q4H PRN PRN Reason: Pain Last Admin: 09/21/18 10:36 Dose: 2 tab Diazepam (Valium) 5 mg IV ONETIME ONE Stop: 09/19/18 12:39 Last Admin: 09/19/18 12:45 Dose: 5 mg Diphtheria/Tetanus/Acell Pertussis (Adacel) 0.5 ml IM .ONCE ONE Stop: 09/19/18 21:16 Last Admin: 09/19/18 21:44 Dose: 0.5 ml Fentanyl (Sublimaze) Confirm Administered Dose 250 mcg .ROUTE .STK-MED ONE Stop: 09/19/18 15:07 Fentanyl (Sublimaze) 50 mcg IVPUSH Q5M PRN PRN Reason: Pain (severe 7-10) Stop: 09/20/18 18:02 Heparin Sodium (Porcine) (Heparin Sodium) 5,000 units SUBCUT Q12H [facility] Last Admin: 09/20/18 15:44 Dose: Not Given Hydromorphone HCl (Dilaudid) 1 mg IVPUSH ONETIME ONE Stop: 09/19/18 12:32 Last Admin: 09/19/18 12:39 Dose: 1 mg Hydromorphone HCl (Dilaudid) Confirm Administered Dose 1 mg .ROUTE .STK-MED ONE Stop: 09/19/18 13:56 Last Admin: 09/19/18 14:00 Dose: Not Given Hydromorphone HCl (Dilaudid) 1 mg IVPUSH ONETIME ONE Stop: 09/19/18 14:00 Last Admin: 09/19/18 14:00 Dose: 1 mg Hydromorphone HCl (Dilaudid) 1 mg IVPUSH ONETIME ONE Stop: 09/19/18 14:29 Last Admin: 09/19/18 14:35 Dose: 1 mg Hydromorphone HCl (Dilaudid) 0.5 - 1 mg IVPUSH Q3H PRN PRN Reason: Pain Last Admin: 09/20/18 05:40 Dose: 0.5 mg Hydromorphone HCl (Dilaudid) 1 mg IVPUSH ONETIME ONE Stop: 09/19/18 15:27 Last Admin: 09/19/18 15:30 Dose: 1 mg Hydromorphone HCl (Dilaudid) Confirm Administered Dose 1 mg .ROUTE .STK-MED ONE Stop: 09/19/18 15:26 Last Admin: 09/19/18 15:37 Dose: Not Given Hydromorphone HCl (Dilaudid) 0.5 - 1 mg IVPUSH Q3H PRN PRN Reason: Pain Last Admin: 09/20/18 20:45 Dose: 1 mg Lidocaine HCl (Xylocaine-Mpf 1%) Confirm Administered Dose 5 mls @ as directed .ROUTE .STK-MED ONE Stop: 09/19/18 14:52 Last Admin: 09/19/18 15:38 Dose: Not Given Cefazolin Sodium/Dextrose 2 gm (/ Premix) 50 mls @ 100 mls/hr IV ONETIME ONE Stop: 09/19/18 15:36 Last Admin: 09/19/18 15:32 Dose: 100 mls/hr Cefazolin Sodium/Dextrose 2 gm (/ Premix) 50 mls @ 100 mls/hr IV Q8HR [facility] Stop: 09/20/18 14:29 Lactated Ringer's (Ringers, Lactated) 1,000 mls @ 125 mls/hr IV ASDIRECTED [facility] Last Admin: 09/19/18 15:36 Dose: 125 mls/hr Lactated Ringer's (Ringers, Lactated) 1,000 mls @ 125 mls/hr IV ASDIRECTED [facility] Last Admin: 09/20/18 15:06 Dose: 125 mls/hr Cefazolin Sodium/Dextrose 2 gm (/ Premix) 50 mls @ 100 mls/hr IV Q8HR [facility] Stop: 09/20/18 06:29 Last Admin: 09/20/18 05:39 Dose: 100 mls/hr Ketorolac Tromethamine (Toradol) 30 mg IVPUSH Q6H [facility] Last Admin: 09/21/18 14:51 Dose: 30 mg Lidocaine (Xylocaine-Mpf 2%) Confirm Administered Dose 5 ml .ROUTE .STK-MED ONE Stop: 09/19/18 15:06 Lidocaine HCl (Xylocaine-Mpf 1%) 10 ml INJECT ONETIME ONE Stop: 09/19/18 14:52 Last Admin: 09/19/18 15:23 Dose: 10 ml Midazolam HCl (Versed 1 Mg/Ml) Confirm Administered Dose 2 mg .ROUTE .STK-MED ONE Stop: 09/19/18 15:07 Ondansetron HCl (Zofran) 4 mg IVPUSH ONETIME ONE Stop: 09/19/18 12:32 Last Admin: 09/19/18 12:39 Dose: 4 mg Ondansetron HCl (Zofran) Confirm Administered Dose 4 mg .ROUTE .STK-MED ONE Stop: 09/19/18 15:06 Oxycodone/Acetaminophen (Percocet 325-5 Mg) 1 - 2 tab PO Q4H PRN PRN Reason: Pain Phenylephrine HCl (Phenylephrine In Ns 100 Mcg/Ml) Confirm Administered Dose 1 mg .ROUTE .STK-MED ONE Stop: 09/19/18 16:30 Propofol (Diprivan 20 Ml) Confirm Administered Dose 200 mg .ROUTE .STK-MED ONE Stop: 09/19/18 15:07 Rocuronium [place] (Zemuron) Confirm Administered Dose 100 mg .ROUTE .STK-MED ONE Stop: 09/19/18 15:06 Succinylcholine Chloride (Succinylcholine Chloride) Confirm Administered Dose 200 mg .ROUTE .STK-MED ONE Stop: 09/19/18 15:06 - My Orders Last 24 Hours: Active Orders 24 hr Category Date Time Status Dressing Change [Wound Care] [RC] DAILY Care 09/22/18 18:09 Active Ready for Discharge [RC] PER UNIT ROUTINE Care 09/23/18 07:26 Active Consult to Home Health [CONS] Routine Cons 09/23/18 07:20 Active Medication Orders Acetaminophen (Tylenol Extra Strength) 1,000 mg PO Q6H [facility] Last Admin: 09/23/18 09:04 Dose: 1,000 mg Admin: 09/23/18 04:11 Dose: 1,000 mg Admin: 09/22/18 20:43 Dose: 1,000 mg Admin: 09/22/18 15:26 Dose: 1,000 mg Admin: 09/22/18 09:01 Dose: 1,000 mg Admin: 09/22/18 03:49 Dose: 1,000 mg Admin: 09/21/18 21:12 Dose: 1,000 mg Admin: 09/21/18 16:12 Dose: 1,000 mg Bacitracin (Bacitracin Oint) 1 gm TOP TID [facility] Last Admin: 09/23/18 06:13 Dose: 1 gm Admin: 09/22/18 21:55 Dose: 1 gm Admin: 09/22/18 14:00 Dose: 1 gm Admin: 09/22/18 05:30 Dose: 1 gm Admin: 09/21/18 22:32 Dose: 1 gm Admin: 09/21/18 14:52 Dose: 1 gm Admin: 09/21/18 08:00 Dose: 1 gm Admin: 09/20/18 23:00 Dose: 1 gm Admin: 09/20/18 14:47 Dose: 1 gm Calcium Carbonate/Glycine (Tums) 1,000 mg PO Q6HR PRN PRN Reason: Indigestion Last Admin: 09/20/18 01:42 Dose: 1,000 mg Diphenhydramine HCl (Benadryl) 25 mg PO Q6H PRN PRN Reason: itchiness Last Admin: 09/20/18 20:40 Dose: 25 mg Docusate Sodium (Colace) 100 mg PO BID [facility] Last Admin: 09/23/18 09:06 Dose: 100 mg Admin: 09/22/18 20:43 Dose: 100 mg Admin: 09/22/18 09:02 Dose: 100 mg Admin: 09/21/18 21:13 Dose: 100 mg Admin: 09/21/18 08:31 Dose: 100 mg Admin: 09/20/18 20:42 Dose: 100 mg Admin: 09/20/18 08:03 Dose: 100 mg Admin: 09/19/18 21:50 Dose: Hydromorphone HCl (Dilaudid) 1 mg IVPUSH Q3H PRN PRN Reason: Pain Metoclopramide HCl (Reglan) 5 mg IVPUSH Q6H PRN PRN Reason: Nausea Ondansetron HCl (Zofran) 4 mg IV Q8HR PRN PRN Reason: NAUSEA/VOMITING Last Admin: 09/21/18 11:43 Dose: 4 mg Admin: 09/19/18 20:54 Dose: 4 mg Oxycodone HCl (Oxycodone) 5 mg PO Q4H PRN PRN Reason: severe pain Last Admin: 09/23/18 13:19 Dose: 5 mg Admin: 09/22/18 18:42 Dose: 5 mg Admin: 09/22/18 12:49 Dose: 5 mg Admin: 09/21/18 22:31 Dose: 5 mg Pantoprazole Sodium (Protonix) 40 mg PO DAILY [facility] Last Admin: 09/23/18 09:05 Dose: 40 mg Admin: 09/22/18 09:02 Dose: 40 mg Admin: 09/21/18 08:32 Dose: 40 mg Admin: 09/20/18 11:32 Dose: 40 mg Polyethylene Glycol (Miralax) 17 gm PO DAILY [facility] Last Admin: 09/23/18 09:04 Dose: 17 gm Admin: 09/22/18 09:02 Dose: 17 gm Admin: 09/21/18 08:31 Dose: 17 gm Admin: 09/20/18 11:32 Dose: 17 gm Rivaroxaban (Xarelto) 10 mg PO DAILY [facility] Last Admin: 09/23/18 09:05 Dose: 10 mg Admin: 09/22/18 09:02 Dose: 10 mg Admin: 09/21/18 08:32 Dose: 10 mg Admin: 09/20/18 09:20 Dose: 10 mg Scopolamine (Transderm-Scop) 1.5 mg TRDERM Q72H PRN PRN Reason: Nausea Sodium Chloride (Saline Flush) 10 ml FLUSH ASDIRECTED PRN PRN Reason: Keep Vein Open Last Admin: 09/19/18 12:43 Dose: 10 ml Sodium Chloride (Saline Flush) 2.5 ml FLUSH ASDIRECTED PRN PRN Reason: Keep Vein Open Last Admin: 09/19/18 12:43 Dose: 2.5 ml Tramadol HCl (Ultram) 100 mg PO Q6H PRN PRN Reason: moderate pain Last Admin: 09/23/18 10:46 Dose: 100 mg Admin: 09/22/18 20:43 Dose: 100 mg Admin: 09/22/18 07:04 Dose: 100 mg Admin: 09/21/18 19:30 Dose: 100 mg - Plan Plan (Free Text/Narrative):: 1400 Patient seen and examined. Agree with above. Progressing with PT. Pain better controlled with po meds. No other complaints. Dressings dry/intact LLE. Thigh soft. No calf TTP. AT/EHL/gastroc 5/5. Sensation intact. DP 2+. Splint in place LUE. Cap refill and sensation intact distally. POD #3 1. continue Xarelto for DVT prophylaxis 2. continue current pain management 3. acute posthemorrhagic anemia--patient asymptomatic, continue observation 4. keep LUE splint clean/dry/intact 5. d/c home today with HH--arrangements made 6. f/u as directed, advised to RTC or call if questions/concerns [place]
--- NOTE | 2018-09-23 06:54 | PCM.DCSUM1 ---
Discharge Summary - Hospital Course Free Text/Narrative:: Patient was admitted 09/19/18 after falling and sustaining a right proximal femur fracture extending into the intertrochanteric region, a right comminuted nondisplaced intra-articular distal radius fracture, and a right hairline nondisplaced fracture of the mid scaphoid bone. He was taken to the OR that day for splinting of the right wrist and closed reduction internal fixation of the right femur fracture. He tolerated surgery well. Post operatively his hemoglobin decreased to around 8.3 and stabilized, there was no evidence of ongoing hemorrhage, swelling, or any symptoms to suggest a large hematoma or compartment syndrome. He progressed appropriately, each day slowly increasing his activity. Initially he did have mild nausea and a headache likely from the surgery, anaesthesia, and trauma. These symptoms did resolve. By discharge he was feeling much better, starting to ambulate better, achieved good pain control with PO medications, and was tolerating a regular diet. Diagnosis: Stroke: No Modified [place] Scale: Mod.Disablility Requiring Some Help,Able to Walk Without Assistance Modified [place] Scale Score: 3 - Discharge Data Discharge Date: 09/23/18 Discharge Disposition: Home, [facility] 06 Condition: Good - Discharge Diagnosis/Problem(s) (1) Right wrist fracture SNOMED Code(s): 625515167, 373242103 ICD Code: S62.101A - FRACTURE OF UNSP CARPAL BONE, RIGHT WRIST, INIT FOR CLOS FX Status: Acute Priority: Medium Current Visit: Yes Qualifiers: Qualified Code(s): S62.101A - Fracture of unspecified carpal bone, right wrist, initial encounter for closed fracture (2) Hip fracture SNOMED Code(s): 192578635 ICD Code: S72.009A - FRACTURE OF UNSP PART OF NECK OF UNSP FEMUR, INIT Status: Acute Priority: High Current Visit: Yes Qualifiers: Qualified Code(s): S72.001A - Fracture of unspecified part of neck of right femur, initial encounter for closed fracture (3) Postoperative anemia due to acute blood loss SNOMED Code(s): 43308925875824878 ICD Code: D62 - ACUTE POSTHEMORRHAGIC ANEMIA Status: Acute Priority: Low Current Visit: Yes Onset Date: ~09/19/18 - Patient Summary/Data Operative Procedure(s) Performed: CR R femur with insertion of CM nail Complications: None Consults: Consultations 09/20/18 09:00 PT Evaluation and Treatment [CONS] Routine - Patient Instructions Diet: Usual Diet as Tolerated Activity: Apply Ice, No Strenuous Activities, Partial Weight Bearing Activity, Other: Weightbearing as tolerated to right leg. Use wheeled walker Driving: Do Not Drive Showering/Bathing: May Shower, No Tub Bathing/Swimming Showering/Bathing, Other: Okay to shower over surgical dressings. Wound/Incision Care: Keep Operative Site/Wound Site Clean and Dry, Do NOT Change Dressing Notify Provider of: Fever, Increased Pain, Swelling and Redness, Drainage, Nausea and/or Vomiting Other/Special Instructions: Nonweightbearing to right arm. Leave splint in place until follow-up in clinic. Okay to use platform walker putting weight on right forearm. - Discharge Plan *PRESCRIPTION DRUG MONITORING PROGRAM REVIEWED*: No *COPY OF PRESCRIPTION DRUG MONITORING REPORT IN PATIENT PADMINI: No Prescriptions/Med Rec: Rivaroxaban [Xarelto] 10 mg PO DAILY #40 tablet Home Medications: Home Meds Docusate Sodium [Colace] 100 mg PO BID cap 09/23/18 [Rx] Rivaroxaban [Xarelto] 10 mg PO DAILY #40 tablet 09/23/18 [Rx] Patient Handouts: Rivaroxaban oral tablets, Acetaminophen; Oxycodone tablets, Hip Fracture Referrals: Maite Solorio PA [Physician Commercial Account Manager] - 10/04/18 1:00 pm - Discharge Summary/Plan Comment DC Time >30 min.: No - Patient Data Vitals - Most Recent: Last Vital Signs Temp 99.2 F 09/23/18 03:39 Pulse 94 09/23/18 03:39 Resp 16 09/23/18 03:39 BP 112/55 L 09/23/18 03:39 Pulse Ox 93 L 09/23/18 03:39 Weight - Most Recent: 200 lb I&O - Last 24 hours: Intake & Output 09/22/18 09/22/18 09/23/18 14:59 22:59 06:59 Intake Total 600 920 Output Total 950 1500 Balance -350 -580 Lab Results - Last 24 hrs: Laboratory Results - last 24 hr 09/22/18 09/23/18 Range/Units 06:44 05:10 Hgb 8.2 L 8.2 L (13.0-17.0) g/dL Hct 24.1 L 24.4 L (38.0-50.0) % Med Orders - Current: Current Medications Acetaminophen (Tylenol Extra Strength) 1,000 mg PO Q6H [facility] Last Admin: 09/23/18 04:11 Dose: 1,000 mg Bacitracin (Bacitracin Oint) 1 gm TOP TID [facility] [place] Last Admin: 09/23/18 06:13 Dose: 1 gm Calcium Carbonate/Glycine (Tums) 1,000 mg PO Q6HR PRN PRN Reason: Indigestion Last Admin: 09/20/18 01:42 Dose: 1,000 mg Diphenhydramine HCl (Benadryl) 25 mg PO Q6H PRN PRN Reason: itchiness Last Admin: 09/20/18 20:40 Dose: 25 mg Docusate Sodium (Colace) 100 mg PO BID [facility] [place] Last Admin: 09/22/18 20:43 Dose: 100 mg Hydromorphone HCl (Dilaudid) 1 mg IVPUSH Q3H PRN PRN Reason: Pain Metoclopramide HCl (Reglan) 5 mg IVPUSH Q6H PRN PRN Reason: Nausea Ondansetron HCl (Zofran) 4 mg IV Q8HR PRN PRN Reason: NAUSEA/VOMITING Last Admin: 09/21/18 11:43 Dose: 4 mg Oxycodone HCl (Oxycodone) 5 mg PO Q4H PRN PRN Reason: severe pain Last Admin: 09/22/18 18:42 Dose: 5 mg Pantoprazole Sodium (Protonix) 40 mg PO DAILY [facility] [place] Last Admin: 09/22/18 09:02 Dose: 40 mg Polyethylene Glycol (Miralax) 17 gm PO DAILY [facility] [place] Last Admin: 09/22/18 09:02 Dose: 17 gm Rivaroxaban (Xarelto) 10 mg PO DAILY [facility] [place] Last Admin: 09/22/18 09:02 Dose: 10 mg Scopolamine (Transderm-Scop) 1.5 mg TRDERM Q72H PRN PRN Reason: Nausea Sodium Chloride (Saline Flush) 10 ml FLUSH ASDIRECTED PRN PRN Reason: Keep Vein Open Last Admin: 09/19/18 12:43 Dose: 10 ml Sodium Chloride (Saline Flush) 2.5 ml FLUSH ASDIRECTED PRN PRN Reason: Keep Vein Open Last Admin: 09/19/18 12:43 Dose: 2.5 ml Tramadol HCl (Ultram) 100 mg PO Q6H PRN PRN Reason: moderate pain Last Admin: 09/22/18 20:43 Dose: 100 mg Discontinued Medications Hydrocodone Bitart/Acetaminophen (Umpire 325-10 Mg) 1 - 2 tab PO Q4H PRN PRN Reason: Pain Last Admin: 09/21/18 10:36 Dose: 2 tab Diazepam (Valium) 5 mg IV ONETIME ONE Stop: 09/19/18 12:39 Last Admin: 09/19/18 12:45 Dose: 5 mg Diphtheria/Tetanus/Acell Pertussis (Adacel) 0.5 ml IM .ONCE ONE Stop: 09/19/18 21:16 Last Admin: 09/19/18 21:44 Dose: 0.5 ml Fentanyl (Sublimaze) Confirm Administered Dose 250 mcg .ROUTE .STK-MED ONE Stop: 09/19/18 15:07 Fentanyl (Sublimaze) 50 mcg IVPUSH Q5M PRN PRN Reason: Pain (severe 7-10) Stop: 09/20/18 18:02 Heparin Sodium (Porcine) (Heparin Sodium) 5,000 units SUBCUT Q12H [facility] Last Admin: 09/20/18 15:44 Dose: Not Given Hydromorphone HCl (Dilaudid) 1 mg IVPUSH ONETIME ONE Stop: 09/19/18 12:32 Last Admin: 09/19/18 12:39 Dose: 1 mg Hydromorphone HCl (Dilaudid) Confirm Administered Dose 1 mg .ROUTE .STK-MED ONE Stop: 09/19/18 13:56 Last Admin: 09/19/18 14:00 Dose: Not Given Hydromorphone HCl (Dilaudid) 1 mg IVPUSH ONETIME ONE Stop: 09/19/18 14:00 Last Admin: 09/19/18 14:00 Dose: 1 mg Hydromorphone HCl (Dilaudid) 1 mg IVPUSH ONETIME ONE Stop: 09/19/18 14:29 Last Admin: 09/19/18 14:35 Dose: 1 mg Hydromorphone HCl (Dilaudid) 0.5 - 1 mg IVPUSH Q3H PRN PRN Reason: Pain Last Admin: 09/20/18 05:40 Dose: 0.5 mg Hydromorphone HCl (Dilaudid) 1 mg IVPUSH ONETIME ONE Stop: 09/19/18 15:27 Last Admin: 09/19/18 15:30 Dose: 1 mg Hydromorphone HCl (Dilaudid) Confirm Administered Dose 1 mg .ROUTE .STK-MED ONE Stop: 09/19/18 15:26 Last Admin: 09/19/18 15:37 Dose: Not Given Hydromorphone HCl (Dilaudid) 0.5 - 1 mg IVPUSH Q3H PRN PRN Reason: Pain Last Admin: 09/20/18 20:45 Dose: 1 mg Lidocaine HCl (Xylocaine-Mpf 1%) Confirm Administered Dose 5 mls @ as directed .ROUTE .STK-MED ONE Stop: 09/19/18 14:52 Last Admin: 09/19/18 15:38 Dose: Not Given Cefazolin Sodium/Dextrose 2 gm (/ Premix) 50 mls @ 100 mls/hr IV ONETIME ONE Stop: 09/19/18 15:36 Last Admin: 09/19/18 15:32 Dose: 100 mls/hr Cefazolin Sodium/Dextrose 2 gm (/ Premix) 50 mls @ 100 mls/hr IV Q8HR [facility] Stop: 09/20/18 14:29 Lactated Ringer's (Ringers, Lactated) 1,000 mls @ 125 mls/hr IV ASDIRECTED [facility] [place] Last Admin: 09/19/18 15:36 Dose: 125 mls/hr Lactated Ringer's (Ringers, Lactated) 1,000 mls @ 125 mls/hr IV ASDIRECTED [facility] [place] Last Admin: 09/20/18 15:06 Dose: 125 mls/hr Cefazolin Sodium/Dextrose 2 gm (/ Premix) 50 mls @ 100 mls/hr IV Q8HR [facility] [place] Stop: 09/20/18 06:29 Last Admin: 09/20/18 05:39 Dose: 100 mls/hr Ketorolac Tromethamine (Toradol) 30 mg IVPUSH Q6H [facility] [place] Last Admin: 09/21/18 14:51 Dose: 30 mg Lidocaine (Xylocaine-Mpf 2%) Confirm Administered Dose 5 ml .ROUTE .STK-MED ONE Stop: 09/19/18 15:06 Lidocaine HCl (Xylocaine-Mpf 1%) 10 ml INJECT ONETIME ONE Stop: 09/19/18 14:52 Last Admin: 09/19/18 15:23 Dose: 10 ml Midazolam HCl (Versed 1 Mg/Ml) Confirm Administered Dose 2 mg .ROUTE .STK-MED ONE Stop: 09/19/18 15:07 Ondansetron HCl (Zofran) 4 mg IVPUSH ONETIME ONE Stop: 09/19/18 12:32 Last Admin: 09/19/18 12:39 Dose: 4 mg Ondansetron HCl (Zofran) Confirm Administered Dose 4 mg .ROUTE .STK-MED ONE Stop: 09/19/18 15:06 Oxycodone/Acetaminophen (Percocet 325-5 Mg) 1 - 2 tab PO Q4H PRN PRN Reason: Pain Phenylephrine HCl (Phenylephrine In Ns 100 Mcg/Ml) Confirm Administered Dose 1 mg .ROUTE .STK-MED ONE Stop: 09/19/18 16:30 Propofol (Diprivan 20 Ml) Confirm Administered Dose 200 mg .ROUTE .STK-MED ONE Stop: 09/19/18 15:07 Rocuronium [place] (Zemuron) Confirm Administered Dose 100 mg .ROUTE .STK-MED ONE Stop: 09/19/18 15:06 Succinylcholine Chloride (Succinylcholine Chloride) Confirm Administered Dose 200 mg .ROUTE .STK-MED ONE Stop: 09/19/18 15:06
[2018-09-23] MEDS: Polyethylene Glycol 3350 Powder 17 GM Packet PO SCH (09:04)
[2018-09-23] MEDS: Rivaroxaban 10 MG Tab PO SCH (09:05)
[2018-09-23] MEDS: Pantoprazole 40 MG Tab.CR PO SCH (09:05)
[2018-09-23] MEDS: Docusate Sodium 100 MG Cap PO SCH (09:06)
[2018-09-23] MEDS: traMADol 50 MG Tab PO PRN (10:46)
[2018-09-23] MEDS: oxyCODONE 5 MG Tab PO PRN (13:19)
[2018-09-23 16:25] VITALS: BP 129/62
== END 2018-09-23 16:30 | disposition home health service (06) | DRG 481 ==
LOC: MW.ED 12:24 → MW.SDS 14:41 → MW.MS 17:49
PROVIDERS: ADMIT Surgery; ATTEND Orthopaedic Surgery
PROC: 0QS606Z Reposition Right Upper Femur with Intramedullary Internal Fixation Device, Open Approach (ICD-10-PCS; principal; 2018-09-19)
PROC: 0HQ1XZZ Repair Face Skin, External Approach (ICD-10-PCS; 2018-09-19)
PROC: 2W38X1Z Immobilization of Right Upper Extremity using Splint (ICD-10-PCS; 2018-09-19)
DX: S72.001A Fracture of unspecified part of neck of right femur, initial encounter for closed fracture (principal); S52.501A Unspecified fracture of the lower end of right radius, initial encounter for closed fracture; D62 Acute posthemorrhagic anemia; S62.024A Nondisplaced fracture of middle third of navicular [scaphoid] bone of right wrist, initial encounter for closed fracture; K21.9 Gastro-esophageal reflux disease without esophagitis; S01.111A Laceration without foreign body of right eyelid and periocular area, initial encounter; S30.0XXA Contusion of lower back and pelvis, initial encounter; W17.89XA Other fall from one level to another, initial encounter; Z87.891 Personal history of nicotine dependence
CPT/HCPCS: 36415; 70450; 70450-26; 71045; 71045-26; 72125; 72125-26; 72170; 72170-26; 73110-26-LT; 73110-26-RT; 73110-LT; 73110-RT; 73200-26-RT; 73200-RT; 73552-26-LT; 73552-RT; 76000; 76000-26; 80053; 81001; 85014; 85018; 85025; 90471; 90715; 96365; 96375; 96376; 97110-GP; 97116-GP; 97162-GP; 97530-GP; 99285-25; A9270-GY; C1713; C1769; J0330; J0690; J1170; J1885; J2001; J2250; J2370; J2405; J2704; J3010; J7120

== ENCOUNTER 2019-07-10 07:18 | Day surgery (SDC) | payer OTHER, BC ==
[~2019-07-10 07:18] MED LIST: Lactated Ringers 1,000 ML IV SCH
--- NOTE | 2019-07-10 07:49 | PCM.PREANE ---
Preanesthetic Assessment - Anesthesia/Transfusion/Family Hx Anesthesia History: Prior Anesthesia Without Reaction Family History of Anesthesia Reaction: No Transfusion History: No Prior Transfusion(s) Intubation History: Unknown - Review of Systems General: No Symptoms Pulmonary: No Symptoms Cardiovascular: No Symptoms Gastrointestinal: No Symptoms Neurological: No Symptoms Other: Reports: None - Physical Assessment NPO Status Date: 07/09/19 Vital Signs: Last Vital Signs Temp 97.3 F 07/10/19 07:35 Pulse 87 07/10/19 07:35 Resp 16 07/10/19 07:35 BP 123/83 07/10/19 07:35 Pulse Ox 96 07/10/19 07:35 Height: 5 ft 9 in Weight: 97.976 kg ASA Class: 2 Mental Status: Alert & Oriented x3 Airway Class: Mallampati = 2 Dentition: Reports: Normal Dentition ROM/Head Extension: Full Lungs: Clear to Auscultation, Normal Respiratory Effort Cardiovascular: Regular Rate, Regular Rhythm - Allergies Allergies/Adverse Reactions: Allergies Allergy/AdvReac Type Severity Reaction Status Date / Time Pork/Porcine Containing Allergy Severe Other Verified 09/20/18 01:15 Products - Blood Blood Available: No - Anesthesia Plan Pre-Op Medication Ordered: None - Acknowledgements Anesthesia Type Planned: General Anesthesia Pt an Appropriate Candidate for the Planned Anesthesia: Yes Alternatives and Risks of Anesthesia Discussed w Pt/Guardian: Yes Pt/Guardian Understands and Agrees with Anesthesia Plan: Yes Additional Comments: PMH: smoker PLAN: get PreAnesthesia Questionnaire - Past Health History Medical/Surgical History: Denies Medical/Surgical History Gastrointestinal History: Reports: Other (See Below) Other Gastrointestinal History: occasional heartburn- no medication Musculoskeletal History: Reports: Fracture Other Musculoskeletal History: hx of right femur and right wrist Endocrine/Metabolic History: Reports: Obesity/BMI 30+ - Infectious Disease History Infectious Disease History: Reports: None - Past Surgical History Head Surgeries/Procedures: Reports: None Musculoskeletal Surgical History: Reports: ORIF, Other (See Below) Other Musculoskeletal Surgeries/Procedures:: ORIF right femur-has Nail, closed reduction right wrist - SUBSTANCE USE Smoking Status *Q: Current Every Day Smoker Tobacco Use Within Last Twelve Months: Cigarettes Recreational Drug Use History: No - HOME MEDS Home Medications: Home Meds . [No Known Home Meds] 07/04/19 [History] - CURRENT (IN HOUSE) MEDS Current Meds: Current Medications Cefazolin Sodium/Dextrose 2 gm (/ Premix) 50 mls @ 100 mls/hr IV ONCALL JOSE Lactated Ringer's (Ringers, Lactated) 1,000 mls @ 100 mls/hr IV ASDIRECTED [facility] Last Admin: 07/10/19 07:43 Dose: 100 mls/hr
[2019-07-10] MEDS ORDERED: Propofol 200 MG/20 ML SDV ONE (08:00)
[2019-07-10] MEDS ORDERED: fentaNYL 250 MCG/5 ML SDV ONE (08:00)
[2019-07-10] MEDS ORDERED: Midazolam 1 MG/ML 2 ML SDV ONE (08:00)
[2019-07-10] MEDS ORDERED: ceFAZolin 2 GM in Premix Bag 1 BAG IV SCH (08:00)
[2019-07-10] MEDS ORDERED: Rocuronium 100 MG/10 ML Syringe ONE (08:03)
[2019-07-10] MEDS ORDERED: Sodium Chloride 0.9% 20 ML ONE (08:06)
[2019-07-10] MEDS ORDERED: ceFAZolin 1 GM Vial ONE (08:06)
[2019-07-10] MEDS ORDERED: Sugammadex Sodium 200 MG/2 ML VIAL ONE (08:09)
[2019-07-10] MEDS ORDERED: Bupivacaine 0.5%/EPINEPHrine 1:200,000 10 ML SDV ONE (08:23)
[2019-07-10] MEDS ORDERED: Dexamethasone 4 MG/ML 5 ML MDV ONE (09:20)
[2019-07-10] MEDS ORDERED: Ondansetron 4 MG/2 ML SDV ONE (09:20)
[2019-07-10] MEDS ORDERED: Naloxone 0.4 MG/ML Syringe IVPUSH PRN (09:36)
[2019-07-10] MEDS ORDERED: Albuterol 0.083% 2.5 MG/3 ML Neb Soln NEB PRN (09:36)
[2019-07-10] MEDS ORDERED: EPINEPHrine 1:10,000 1 MG/10 ML Syringe IVPUSH PRN (09:36)
[2019-07-10] MEDS ORDERED: Atropine 0.1 MG/ML 10 ML Syringe IVPUSH PRN ×2 (09:36)
[2019-07-10] MEDS ORDERED: 50% Dextrose in Water 50 ML Syringe IVPUSH PRN (09:36)
--- NOTE | 2019-07-10 10:15 | PCM.OPNOTE ---
- General Post-Op/Procedure Note Date of Surgery/Procedure: 07/10/19 Operative Procedure(s): repair nonunion of femur Pre Op Diagnosis: femur nonunion s/p im nail Post-Op Diagnosis: Same Anesthesia Technique: General ET Tube Primary Surgeon: Randy Martinez Shift Supervisor Film Processing: Eliana Weiner EBL in mLs: 200 Complications: None Condition: Good
[2019-07-10] MEDS: fentaNYL 100 MCG/2 ML SDV IVPUSH PRN ×2 (10:17→10:47)
--- NOTE | 2019-07-10 11:31 | CR ---
Right hip: AP and frog leg lateral views of the right hip were obtained. Comparison: Previous right hip study of 06/08/19. Compression screw and intramedullary devyn is noted within the right hip. Skin michelle are present. Proximal fracture is seen within the femoral shaft. Endosteal callus is seen. Mild joint space narrowing is seen within the right hip. Compression screw appears to have been changed from previous exam. Impression: 1. Compression screw appearing to have been changed from prior exam. 2. Healing proximal femoral shaft fracture. 3. Skin michelle. Diagnostic code #2 This report was dictated in [place] Standard Time
--- NOTE | 2019-07-10 11:33 | OR ---
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 PROCEDURE: Repair of nonunion, proximal femur. PRIMARY SURGEON: Randy Martinez DO. LEAD TANK MECHANIC: JASON Hanks. ROLE OF LEAD TANK MECHANIC: Nurse practitioner, JASON Hanks, played an essential role in assisting in this case, helping to position the patient, retract structures as needed, as well as suturing and cutting sutures as indicated. Her presence improved patient's safety and decreased operative time. ANESTHESIA: General endotracheal intubation. FLUID: Lactated Ringer's solution. ESTIMATED BLOOD LOSS: 200 mL. COMPLICATIONS: None. SPECIMENS: None. DISCHARGE DISPOSITION: Stable to PACU. HISTORY AND INDICATIONS FOR THE PROCEDURE: The patient was seen preoperatively in the clinic by Dr. Rajan and myself. About 9 months previously, he had undergone intramedullary nailing after a fall for a subtrochanteric fracture. Unfortunately, the proximal fragment had flexed during the procedure, and he had a spike anteriorly from this fragment, which was causing him pain. Preoperative imaging confirmed the above-mentioned diagnosis. Risks and benefits of the procedure were explained to the patient and informed consent was obtained. DETAILS OF PROCEDURE: The patient was seen preoperatively by myself and the Anesthesia staff in the preoperative holding area where the operative site was marked. He was brought to the operative suite by the Anesthesia staff where general anesthesia was administered. He was placed into a traction table. All extremities were found to be well padded. The right lower extremity was then prepped and draped in sterile manner. Time-out was called identifying the correct patient, the correct procedure, the correct site, and that antibiotics had been given within appropriate period of time. Incision was made from the greater trochanter about 15 cm distally and then carried down to the IT band. Bleeding was controlled with Bovie electrocautery. I used a Cabrales to remove some of the fat over the IT band. I then incised the IT band with a blade and then went directly through the muscle and found the anterior spike, which was larger than I anticipated it to be. I then used retractors for visualization. Used Bovie electrocautery to control some bleeding and delineated the spike better. I then protected it medially to avoid any injury to the great vessels and then used a reciprocating saw to remove the spike. I then cleaned up the edges where it was sawed, so there were no sharp edges. I then used a Bovie and delineated where there were places of nonunion. After doing that, I then lightly burred these with a saw and then applied DBM putty from [employer]. Having accomplished our goals, I copiously irrigated with Betadine infused irrigation. We closed the IT band with #1 Stratafix followed by subcutaneous closure with #1 Stratafix, skin michelle, Betadine-soaked Adaptic, fluffs, and Medipore tape. The patient was then allowed to awaken from general anesthesia and taken to the PACU in stable condition. [id number] / MODL /[id number]
[2019-07-10] MEDS ORDERED: Acetaminophen/oxyCODONE 325-5 MG Tab PO PRN (11:38)
[2019-07-10] MEDS ORDERED: HYDROmorphone 2 MG/ML Syringe IVPUSH PRN ×2 (12:27→13:44)
[2019-07-10] MEDS ORDERED: Haloperidol Lactate 5 MG/ML SDV IM ONE (12:45)
--- NOTE | 2019-07-10 12:47 | PCM.POSTAN ---
POST ANESTHESIA ASSESSMENT - MENTAL STATUS Mental Status: Alert, Oriented - VITAL SIGNS Vital Signs: Last Vital Signs Temp 97.0 F 07/10/19 11:00 Pulse 88 07/10/19 11:30 Resp 16 07/10/19 11:30 BP 119/72 07/10/19 11:30 Pulse Ox 97 07/10/19 11:30 - RESPIRATORY Respiratory Status: Respiratory Rate WNL, Airway Patent, O2 Saturation Stable - CARDIOVASCULAR CV Status: Pulse Rate WNL, Blood Pressure Stable - GASTROINTESTINAL GI Status: No Symptoms - POST OP HYDRATION Hydration Status: Adequate & Stable
[2019-07-10] MEDS: Ketorolac 30 MG/ML SDV IVPUSH PRN (12:48)
[2019-07-10] MEDS ORDERED: Ketorolac 15 MG/ML SDV IVPUSH PRN (13:44)
[2019-07-10] MEDS ORDERED: traMADol 50 MG Tab PO PRN (13:44)
[2019-07-10] MEDS ORDERED: hydrOXYzine Pamoate 25 MG Cap PO PRN (13:44)
[2019-07-10] MEDS: Acetaminophen/HYDROcodone 325-10 MG Tab PO PRN (17:13)
[2019-07-10] MEDS: ceFAZolin 2 GM in Premix Bag 1 BAG IV SCH (17:14)
[2019-07-10] MEDS ORDERED: FLU Vacc QS2019-20(6MOS+)/PF 60 MCG/0.5 ML SYRINGE IM ONE ×2 (17:15)
[2019-07-10] MEDS ORDERED: Ondansetron 4 MG/2 ML SDV IVPUSH PRN (18:16)
[2019-07-11] MEDS: Ketorolac 30 MG/ML SDV IVPUSH PRN (00:59)
[2019-07-11] MEDS: ceFAZolin 2 GM in Premix Bag 1 BAG IV SCH (01:04)
--- NOTE | 2019-07-11 08:20 | PCM.SURGPN ---
- General Info Date of Service: 07/11/19 (0800) Date of Surgery/Procedure: 07/10/19 POD#: 1 Post-Op Diagnosis: Repair of nonunion, proximal right femur Functional Status: Reports: Pain Controlled, Tolerating Diet, Ambulating, Urinating - Review of Systems General: Reports: No Symptoms. Denies: Fever Pulmonary: Reports: No Symptoms Cardiovascular: Reports: No Symptoms Gastrointestinal: Reports: Other (c/o indigestion, with request for an antacid. "One I had from my first hip surgery worked really good." ) Musculoskeletal: Reports: Other (right hip pain) Neurological: Reports: No Symptoms Psychiatric: Reports: No Symptoms - Patient Data Vitals - Most Recent: Last Vital Signs Temp 36.8 C 07/11/19 03:45 Pulse 83 07/11/19 03:45 Resp 16 07/11/19 03:45 BP 105/53 L 07/11/19 03:45 Pulse Ox 95 07/11/19 03:45 Weight - Most Recent: 100.108 kg I&O - Last 24 Hours: Intake & Output 07/10/19 07/11/19 07/11/19 22:59 06:59 14:59 Output Total 650 Balance -650 Med Orders - Current: Current Medications Hydrocodone Bitart/Acetaminophen (Procious 325-10 Mg) 1 tab PO Q4H PRN PRN Reason: Pain Last Admin: 07/10/19 17:13 Dose: 1 tab Albuterol (Proventil Neb Soln) 2.5 mg NEB ONETIME PRN PRN Reason: Wheezing Aspirin (Aspirin) 325 mg PO DAILY JOSE Atropine Sulfate (Atropine 0.1 Mg/Ml) 0.5 mg IVPUSH ASDIRECTED PRN PRN Reason: Hypo-perfusion Atropine Sulfate (Atropine 0.1 Mg/Ml) 1 mg IVPUSH ASDIRECTED PRN PRN Reason: Hypo-Perfusion Celecoxib (Celebrex) 100 mg PO BID JOSE Dextrose/Water (Dextrose 50% In Water) 50 ml IVPUSH ASDIRECTED PRN PRN Reason: Hypoglycemia Epinephrine HCl (Epinephrine 1:10,000) 1 mg IVPUSH ASDIRECTED PRN PRN Reason: ACLS Guidelines Famotidine (Pepcid) 40 mg PO DAILY JOSE Fentanyl (Sublimaze) 50 mcg IVPUSH Q5M PRN PRN Reason: Pain Last Admin: 07/10/19 10:47 Dose: 50 mcg Hydromorphone HCl (Dilaudid) 2 mg IVPUSH Q2H PRN PRN Reason: Pain Last Admin: 07/10/19 12:40 Dose: 2 mg Hydromorphone HCl (Dilaudid) 2 mg IVPUSH Q2H PRN PRN Reason: Pain Hydroxyzine Pamoate (Vistaril) 25 mg PO Q6H PRN PRN Reason: Pain Cefazolin Sodium/Dextrose 2 gm (/ Premix) 50 mls @ 100 mls/hr IV ONCALL [facility] Last Admin: 07/11/19 00:19 Dose: 100 mls/hr Lactated Ringer's (Ringers, Lactated) 1,000 mls @ 100 mls/hr IV ASDIRECTED [facility] Last Infusion: 07/10/19 17:18 Dose: 100 mls/hr Ketorolac Tromethamine (Toradol) 30 mg IVPUSH Q6H PRN PRN Reason: Pain Stop: 07/15/19 12:27 Last Admin: 07/11/19 00:59 Dose: 30 mg Naloxone HCl (Narcan) 0.1 mg IVPUSH ASDIRECTED PRN PRN Reason: Respiratory Depression [facility]) [facility] Ondansetron HCl (Zofran) 8 mg IVPUSH Q8H PRN PRN Reason: Nausea/Vomiting Last Admin: 07/10/19 18:26 Dose: 8 mg Oxycodone/Acetaminophen (Percocet 325-5 Mg) 1 tab PO Q6H PRN PRN Reason: Pain Last Admin: 07/10/19 11:43 Dose: 1 tab Tramadol HCl (Ultram) 50 - 100 mg PO Q4H PRN PRN Reason: Pain Discontinued Medications Bupivacaine HCl/Epinephrine Bitart (Marcaine 0.5%/Epinephrine 1:200,000) Confirm Administered Dose 20 ml .ROUTE .STK-MED ONE Stop: 07/10/19 08:24 Cefazolin Sodium (Ancef) Confirm Administered Dose 1 gm .ROUTE .STK-MED ONE Stop: 07/10/19 08:07 Dexamethasone (Dexamethasone) Confirm Administered Dose 20 mg .ROUTE .STK-MED ONE Stop: 07/10/19 09:21 Fentanyl (Sublimaze) Confirm Administered Dose 250 mcg .ROUTE .STK-MED ONE Stop: 07/10/19 08:01 Haloperidol Lactate (Haldol) 0.1 mg IM ONETIME ONE Stop: 07/10/19 12:46 Last Admin: 07/10/19 12:57 Dose: 0.1 mg Cefazolin Sodium/Dextrose (Ancef) Confirm Administered Dose 50 mls @ as directed .ROUTE .STK-MED ONE Stop: 07/10/19 08:07 Sodium Chloride (Normal Saline) Confirm Administered Dose 20 mls @ as directed .ROUTE .STK-MED ONE Stop: 07/10/19 08:07 Acetaminophen (Ofirmev) Confirm Administered Dose 100 mls @ as directed .ROUTE .STK-MED ONE Stop: 07/10/19 08:10 Cefazolin Sodium/Dextrose 2 gm (/ Premix) 50 mls @ 100 mls/hr IV Q8H JOSE Stop: 07/11/19 00:29 Last Admin: 07/11/19 01:04 Dose: 100 mls/hr Influenza Virus Vaccine (Pharmacy To Dose - Influenza Vaccine) 1 each IM ONETIME ONE Stop: 07/11/19 10:01 Influenza Virus Vaccine (Fluzone Quad [id number] Syringe) 60 mcg IM .ONCE ONE Stop: 07/10/19 17:16 Ketorolac Tromethamine (Toradol) 15 mg IVPUSH Q6H PRN PRN Reason: Pain Stop: 07/11/19 05:00 Lidocaine HCl (Xylocaine-Mpf 1%) Confirm Administered Dose 5 ml .ROUTE .STK-MED ONE Stop: 07/10/19 08:04 Midazolam HCl (Versed 1 Mg/Ml) Confirm Administered Dose 2 mg .ROUTE .STK-MED ONE Stop: 07/10/19 08:01 Ondansetron HCl (Zofran) Confirm Administered Dose 4 mg .ROUTE .STK-MED ONE Stop: 07/10/19 09:21 Propofol (Diprivan 20 Ml) Confirm Administered Dose 200 mg .ROUTE .STK-MED ONE Stop: 07/10/19 08:01 Rocuronium Spout [place] (Zemuron) Confirm Administered Dose 100 mg .ROUTE .STK-MED ONE Stop: 07/10/19 08:04 Sugammadex Sodium (Bridion) Confirm Administered Dose 200 mg .ROUTE .STK-MED ONE Stop: 07/10/19 08:10 - Exam Wound/Incisions: Dressing Dry and Intact. No: Erythema General: Alert, Oriented, Cooperative, No Acute Distress HEENT: Pupils Equal Lungs: Normal Respiratory Effort Cardiovascular: Regular Rate Extremities: No Pedal Edema, Normal Capillary Refill, Other (PP2+ Sensation grossly intact to RLE) Skin: Warm, Dry, Other (Right hip : surgical dressing CDI. Removed and large AquaCell dressing applied. Incision well approximated with michelle. No surrounding erythema. No active drainage) Neurological: Normal Speech, Normal Tone Psy/Mental Status: Alert, Normal Affect, Normal Mood Sepsis Event Note - Evaluation Sepsis Screening Result: No Definite Risk - Focused Exam Vital Signs: Vital Signs Temp Pulse Resp BP Pulse Ox 07/11/19 03:45 36.8 C 83 16 105/53 L 95 07/11/19 00:53 36.5 C 99 16 100/53 L 94 L Date Exam was Performed: 07/11/19 Time Exam was Performed: 08:14 - Problem List Review Problem List Initiated/Reviewed/Updated: Yes - My Orders Last 24 Hours: Active Orders 24 hr Category Date Time Status Cooling Warming Measures [RC] ASDIRECTED Care 07/10/19 13:44 Active Influenza Vaccine Charge [RC] .DISCHARGE Care 07/10/19 17:00 Active Neurovascular Check [RC] BID Care 07/10/19 13:44 Active Oxygen Therapy [RC] PRN Care 07/10/19 09:37 Active RT Aerosol Therapy [RC] ASDIRECTED Care 07/10/19 09:37 Active RT Aerosol Therapy [RC] ASDIRECTED Care 07/10/19 09:37 Active RT Incentive Spirometry [RC] Q1HWA Care 07/10/19 13:45 Active Ready for Discharge [RC] PER UNIT ROUTINE Care 07/10/19 10:01 Inactive Ready for Discharge [RC] PER UNIT ROUTINE Care 07/11/19 08:14 Ordered OT Evaluation and Treatment [CONS] Routine Cons 07/10/19 13:44 Active PT Evaluation and Treatment [CONS] Routine Cons 07/10/19 13:44 Active Regular Diet [DIET] Diet 07/10/19 Lunch Active Acetaminophen/HYDROcodone [Procious 325-10 MG] Med 07/10/19 13:44 Active 1 tab PO Q4H PRN Acetaminophen/oxyCODONE [Percocet 325-5 MG] Med 07/10/19 11:38 Active 1 tab PO Q6H PRN Albuterol [Proventil Neb Soln] Med 07/10/19 09:36 Active 2.5 mg NEB ONETIME PRN Aspirin Med 07/11/19 09:00 Active 325 mg PO DAILY Atropine [Atropine 0.1 MG/ML] Med 07/10/19 09:36 Active 0.5 mg IVPUSH ASDIRECTED PRN Atropine [Atropine 0.1 MG/ML] Med 07/10/19 09:36 Active 1 mg IVPUSH ASDIRECTED PRN Celecoxib [CeleBREX] Med 07/11/19 09:00 Active 100 mg PO BID Dextrose 50% in Water Med 07/10/19 09:36 Active 50 ml IVPUSH ASDIRECTED PRN EPINEPHrine [EPINEPHrine 1:10,000] Med 07/10/19 09:36 Active 1 mg IVPUSH ASDIRECTED PRN Famotidine [Pepcid] Med 07/11/19 09:00 Active 40 mg PO DAILY HYDROmorphone [Dilaudid] Med 07/10/19 12:27 Active 2 mg IVPUSH Q2H PRN HYDROmorphone [Dilaudid] Med 07/10/19 13:44 Active 2 mg IVPUSH Q2H PRN Ketorolac [Toradol] Med 07/10/19 12:26 Active 30 mg IVPUSH Q6H PRN Naloxone [Narcan] Med 07/10/19 09:36 Active 0.1 mg IVPUSH ASDIRECTED PRN Omeprazole Med 07/13/19 07:30 Active 20 mg PO ACBREAKFAST Ondansetron [Zofran] Med 07/10/19 18:16 Active 8 mg IVPUSH Q8H PRN ceFAZolin [Ancef] 2 gm Med 07/10/19 08:00 Active Premix Bag 1 bag IV ONCALL fentaNYL [Sublimaze] Med 07/10/19 09:36 Active 50 mcg IVPUSH Q5M PRN hydrOXYzine pamoate [Vistaril] Med 07/10/19 13:44 Active 25 mg PO Q6H PRN traMADol [Ultram] Med 07/10/19 13:44 Active 50 - 100 mg PO Q4H PRN Ice Therapy [OM.PC] Routine Oth 07/10/19 13:44 Ordered Sequential Compression Device [OM.PC] Routine Oth 07/10/19 08:00 Ordered Medication Orders Hydrocodone Bitart/Acetaminophen (Procious 325-10 Mg) 1 tab PO Q4H PRN PRN Reason: Pain Last Admin: 07/10/19 17:13 Dose: 1 tab Albuterol (Proventil Neb Soln) 2.5 mg NEB ONETIME PRN PRN Reason: Wheezing Aspirin (Aspirin) 325 mg PO DAILY [facility] Atropine Sulfate (Atropine 0.1 Mg/Ml) 0.5 mg IVPUSH ASDIRECTED PRN PRN Reason: Hypo-perfusion Atropine Sulfate (Atropine 0.1 Mg/Ml) 1 mg IVPUSH ASDIRECTED PRN PRN Reason: Hypo-Perfusion Celecoxib (Celebrex) 100 mg PO BID [facility] Dextrose/Water (Dextrose 50% In Water) 50 ml IVPUSH ASDIRECTED PRN PRN Reason: Hypoglycemia Epinephrine HCl (Epinephrine 1:10,000) 1 mg IVPUSH ASDIRECTED PRN PRN Reason: ACLS Guidelines Famotidine (Pepcid) 40 mg PO DAILY [facility] Fentanyl (Sublimaze) 50 mcg IVPUSH Q5M PRN PRN Reason: Pain Last Admin: 07/10/19 10:47 Dose: 50 mcg Admin: 07/10/19 10:17 Dose: 50 mcg Hydromorphone HCl (Dilaudid) 2 mg IVPUSH Q2H PRN PRN Reason: Pain Last Admin: 07/10/19 12:40 Dose: 2 mg Hydromorphone HCl (Dilaudid) 2 mg IVPUSH Q2H PRN PRN Reason: Pain Hydroxyzine Pamoate (Vistaril) 25 mg PO Q6H PRN PRN Reason: Pain Cefazolin Sodium/Dextrose 2 gm (/ Premix) 50 mls @ 100 mls/hr IV ONCALL [facility] Last Admin: 07/11/19 00:19 Dose: 100 mls/hr Lactated Ringer's (Ringers, Lactated) 1,000 mls @ 100 mls/hr IV ASDIRECTED [facility] Last Infusion: 07/10/19 17:18 Dose: 100 mls/hr Admin: 07/10/19 07:43 Dose: 100 mls/hr Ketorolac Tromethamine (Toradol) 30 mg IVPUSH Q6H PRN PRN Reason: Pain Stop: 02/29/20 12:27 Last Admin: 07/11/19 00:59 Dose: 30 mg Admin: 07/10/19 12:48 Dose: 30 mg Naloxone HCl (Narcan) 0.1 mg IVPUSH ASDIRECTED PRN PRN Reason: Respiratory Depression Omeprazole (Omeprazole) 20 mg PO ACBREAKFAST JOSE Ondansetron HCl (Zofran) 8 mg IVPUSH Q8H PRN PRN Reason: Nausea/Vomiting Last Admin: 07/10/19 18:26 Dose: 8 mg Oxycodone/Acetaminophen (Percocet 325-5 Mg) 1 tab PO Q6H PRN PRN Reason: Pain Last Admin: 07/10/19 11:43 Dose: 1 tab Tramadol HCl (Ultram) 50 - 100 mg PO Q4H PRN PRN Reason: Pain - Assessment Assessment (Free Text/Narrative):: 1) s/p Repair of nonunion, proximal femur 2) acute post-surgical pain, currently controlled - Plan Plan (Free Text/Narrative):: Nihat states pain controlled this morning, and is ready for discharge home. Tolerating oral food/fluids without N/V. Requested a Rx antacid for indigestion. Rx sent to pharmacy. Reports had been up OOB. WBAT. Surgical dressing CDI. Removed and large AquaCell dressing applied. Incision well approximated with michelle. No erythema. No active drainage. NV exam RLE WNL.
--- NOTE | 2019-07-11 08:21 | PCM48HPAN ---
Post Anesthesia Note - EVALUATION WITHIN 48HRS OF ANESTHETIC Vital Signs in Normal Range: Yes Patient Participated in Evaluation: Yes Respiratory Function Stable: Yes Airway Patent: Yes Cardiovascular Function Stable: Yes Hydration Status Stable: Yes Pain Control Satisfactory: Yes Nausea and Vomiting Control Satisfactory: Yes Mental Status Recovered: Yes Vital Signs: Last Vital Signs Temp 36.8 C 07/11/19 03:45 Pulse 83 07/11/19 03:45 Resp 16 07/11/19 03:45 BP 105/53 L 07/11/19 03:45 Pulse Ox 95 07/11/19 03:45 - COMMENTS/OBSERVATIONS Free Text/Narrative:: Waiting for his to arrive to take him home.
[2019-07-11] MEDS: Acetaminophen/HYDROcodone 325-10 MG Tab PO PRN (08:53)
[2019-07-11] MEDS ORDERED: Aspirin 325 MG Tab PO SCH (09:00)
[2019-07-11] MEDS ORDERED: Famotidine 20 MG Tab PO SCH (09:00)
[2019-07-11] MEDS ORDERED: Celecoxib 100 MG Cap PO SCH (09:00)
[2019-07-11 09:41] VITALS: BP 115/96; PULSE 91
[2019-07-13] MEDS ORDERED: Omeprazole 20 MG Cap.CR PO SCH (07:30)
== END 2019-07-11 11:00 | disposition home or self-care (01) ==
LOC: MW.SDS 07:18 → MW.MS 15:11 → MW.SDS 07-11 11:00
PROVIDERS: ATTEND Orthopaedic Surgery
DX: S72.21XK Displaced subtrochanteric fracture of right femur, subsequent encounter for closed fracture with nonunion (principal); E66.9 Obesity, unspecified; F17.210 Nicotine dependence, cigarettes, uncomplicated; Z23 Encounter for immunization; Z79.899 Other long term (current) drug therapy; Z91.018 Allergy to other foods; X58.XXXD Exposure to other specified factors, subsequent encounter; Z68.32 Body mass index [BMI] 32.0-32.9, adult
CPT/HCPCS: 27470; 73502; 90686; 97110; 97161; A9270; J0131; J0690; J1100; J1170; J1630; J1885; J2001; J2250; J2405; J2704; J3010; J3490; J7120; 01230

== ENCOUNTER 2021-01-06 16:04 | Emergency (ER) | payer OTHER ==
[2021-01-06] MEDS ORDERED: Bacitracin Oint 1 GM U/D Packet TOP ONE (16:11)
[2021-01-06] MEDS ORDERED: Lidocaine 1% PF 2 ML SDV INJECT ONE (16:11)
--- NOTE | 2021-01-06 16:11 | EDM.PDOC ---
ED HPI GENERAL MEDICAL PROBLEM - General Chief Complaint: Laceration Stated Complaint: FINGER LACERATION Time Seen by Provider: 01/06/21 16:11 Source of Information: Reports: Patient History Limitations: Reports: No Limitations - History of Present Illness INITIAL COMMENTS - FREE TEXT/NARRATIVE: HISTORY AND PHYSICAL: History of present illness: Patient is a 45-year-old male who presents to the emergency room with complaints of a laceration to his left index finger. Patient was cleaning when a metal sheet had fallen, hitting his finger, resulting in the laceration. He does have good flexion and extension of the finger. Bleeding is controlled with pressure. Denies any other extremity involvement. Offers no systemic complaints. Tdap updated in 2019 Review of systems: As per history of present illness and below otherwise all systems reviewed and negative. Past medical history: As per history of present illness and as reviewed below otherwise noncontributory. Surgical history: As per history of present illness and as reviewed below otherwise noncontributory. Social history: See social history for further information Family history: As per history of present illness and as reviewed below otherwise noncontributory. Physical exam: General: Well developed and well nourished 45 year old male. Alert and orientated x 3. Nontoxic in appearance and in no acute distress. Vital signs are stable and have been reviewed by me. Nursing notes were reviewed. HEENT: Atraumatic, normocephalic, pupils equal and reactive bilaterally, negative for conjunctival pallor or scleral icterus, mucous membranes moist, TMs normal bilaterally, throat clear, neck supple, nontender, trachea midline. No drooling or trismus noted. No meningeal signs. No hot potato voice noted. Lungs: Clear to auscultation bilaterally. No wheezes, rales, or rhonchi. Chest nontender. Normal work of breathing, no accessory muscles used. Heart: S1S2, regular rate and rhythm without overt murmur, gallops, or rubs. No JVD. No peripheral edema Abdomen: Soft, nondistended, nontender. Normoactive bowel sounds. Negative for masses or costovertebral tenderness. Skin: 3 cm laceration to base of nailbed of left index finger. Laterally to the medial nail, he has a skin avulsion, extending into the pad of the finger measuring approx 1.5cm. Remaining skin is intact, warm, dry. No lesions or ra shes noted. Hematologic: No petechiae or purpra. Mucosa appropriate color and normal nail bed color and refill. Extremities: Good flexion and extension of the affected finger with the exception of possible extensor tendon injury at the DIP joint, unable to fully extend finger tip. He moves all other extremities per self without difficulty or deficits, capillary refill less than 3 seconds. Neurovascular unremarkable. Neuro: Awake, alert, oriented. Cranial nerves II through XII unremarkable. Cerebellum unremarkable. Motor and sensory unremarkable throughout. Exam nonfocal. Psychiatric: Mood and affect are appropriate. Normal thought process. Answering questions appropriately. Notes: *This patient was seen and evaluated during the 2019 SARS-CoV-2 novel coronavirus pandemic period. Community viral transmission is ongoing at time of this encounter and the emergency department is operating under pandemic response procedures. 1% lidocaine was used to anesthetize the finger, digital block was performed. Was able to explore the lacerated tissue. Able to visualized the extensor tendon, appears intact although he can not fully extend the finger tip at DIP joint (about 50% extension). 3 cm laceration to base of nail bed of left index finger. The nail is intact. Laterally to the medial nail, he has a skin avulsion, extending into the pad of the finger measuring approx 1.5cm. Area was thoroughly cleansed with chlorhexidine and irrigated with wound wash. #2 internal 4-0 chromic dissolvable stitches were used, #6 external 4-0 nylon sutures were placed to close the laceration. The skin avulsion was thoroughly cleansed and bacitracin nonstick dressing was applied. X-ray shows a soft tissue defect/laceration with a few tiny probable radiodense foreign bodies mid left 2nd finger dorsally. Nondisplaced fracture middle phalanx left 2nd finger. Have given patient IM Ancef and [place] for pain, per patient request. We had a lengthy discussion about needing to follow up with Dr Machado or Dr Carlson (hand surgeons) at [facility] for re-evaluation in the next few days. Bacitracin nonstick dressing was applied with a bulky dressing and aluminum splint/cage to protect site and keep finger extended. I have talked with the patient about today's findings, in addition to providing specific details for plan of care. Reassessment at the time of disposition demonstrates that the patient is in no acute distress. The patient is stable for discharge, counseling was provided and we discussed in great detail signs and symptoms that would prompt them to return to the Emergency Department. Medication, follow up and supportive care measures were reviewed and discussed. Voices understanding and is agreeable to plan of care. Denies any further questions or concerns at this time. Diagnostics: Finger x-ray Therapeutics: Ancef, Bacitracin, Lidocaine, Wound Care/Dressing Prescription: Keflex, [place] Impression: Phalanx fracture, finger Laceration Avulsion Plan: 1. You were evaluated today on an emergent basis. You have an open fracture and injury of the extensor tendon of your left index finger. Keep the skin clean and dry. Monitor for signs of infection. Sutures to be removed in 7-10 days. 2. You can alternate Tylenol and ibuprofen as needed for pain and fever management. [place] for moderate to severe pain. This medication may cause drowsiness, so do not take while driving or needing to be functioning outside the house. 3. You need to follow up with the Hand Surgeon, Dr Machado or Dr Carlson at [facility] in the next few days for re-evaluation and further care/management. Please call tomorrow to set up a follow up appointment. 4. If your symptoms should worsen, new symptoms develop or any of the signs and symptoms we discussed should arise please return to the emergency room or call 911 (if needed). Definitive disposition and diagnosis as appropriate pending reevaluation and review of above. hand Pain Score (Numeric/FACES): 4 - Related Data Allergies Allergy/AdvReac Type Severity Reaction Status Date / Time Pork/Porcine Containing Allergy Severe Other Verified 01/06/21 16:43 Products Home Meds: Home Meds Acetaminophen/oxyCODONE [Percocet 325-5 MG] 1 tab PO Q6H PRN tablet 07/11/19 [Rx] Aspirin 325 mg PO DAILY #30 tablet 07/11/19 [Rx] Omeprazole 20 mg PO ACBREAKFAST #30 cap.cr 07/11/19 [Rx] Hydrocodone/Acetaminophen [HYDROcodone-Acetaminophen 5-325 MG] 1 - 2 tab PO Q4HR PRN #20 tablet 01/06/21 [Rx] cephALEXin [Keflex] 500 mg PO TID 7 Days #21 cap 01/06/21 [Rx] Past Medical History - Past Health History Medical/Surgical History: Denies Medical/Surgical History Gastrointestinal History: Reports: Other (See Below) Other Gastrointestinal History: occasional heartburn- no medication Musculoskeletal History: Reports: Fracture Other Musculoskeletal History: hx of right femur and right wrist Endocrine/Metabolic History: Reports: Obesity/BMI 30+ - Infectious Disease History Infectious Disease History: Reports: None - Past Surgical History Head Surgeries/Procedures: Reports: None Musculoskeletal Surgical History: Reports: ORIF, Other (See Below) Other Musculoskeletal Surgeries/Procedures:: ORIF right femur-has Nail, closed reduction right wrist Social & Family History - Family History Family Medical History: No Pertinent Family History - Living Situation & Occupation 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 ED EXAM, SKIN/RASH Exam: See Below (See dictation) ED SKIN PROCEDURES - Laceration/Wound Repair Left index finger Appearance: Subcutaneous, Irregular, Clean Distal NVT: Neuro & Vascular Intact, Other (Partial distal extensor tendon injury) Anesthetic Type: Digital Local Anesthesia - Lidocaine (Xylocaine): 1% Plain Local Anesthetic Volume: Other (7cc) Skin Prep: Chlorhexidine (Hibiciens), Saline, Sterile Drape Saline Irrigation (cc's): 500 Exploration/Debridement/Repair: Wound Explored, In a Bloodless Field, Explored to Base, No Foreign Material Found Closed with: Sutures Lac/Wound length In cm: 3 Suture Size: 4-0 (Chromic) # of Sutures: 6 Suture Type: Interrupted, Simple Suture Size: 4-0 # of Sutures: 2 Repaired with: Chromic Drain Placement: No Sterile Dressing Applied: Provider Tetanus Status Addressed: Yes Complications: No Course - Vital Signs Last Recorded V/S: Last Vital Signs Temp 97.0 F 01/06/21 16:43 Pulse 88 01/06/21 17:43 Resp 18 01/06/21 17:43 BP 138/86 01/06/21 17:43 Pulse Ox 97 01/06/21 17:43 - Orders/Labs/Meds Meds: Medications Discontinued Medications Generic Name Dose Route Start Last Admin Trade Name Freq PRN Reason Stop Dose Admin Hydrocodone Bitart/Acetaminophen 1 tab 01/06/21 16:57 01/06/21 17:14 Acetaminophen/Hydrocodone 325-5 Mg Tab PO 01/06/21 16:58 1 tab ONETIME ONE Administration Bacitracin 1 dose 01/06/21 16:11 01/06/21 16:47 Bacitracin Oint 1 Gm U/D Packet TOP 01/06/21 16:12 1 dose ONETIME ONE Administration Cefazolin Sodium 1 gm 01/06/21 16:57 01/06/21 17:14 Cefazolin 1 Gm Vial IM 01/06/21 16:58 1 gm ONETIME ONE Administration Sterile Water Confirm 01/06/21 17:06 01/06/21 17:15 Sterile Water For Injection Administered 01/06/21 17:07 Not Given Dose 20 mls @ as directed .ROUTE .STK-MED ONE Lidocaine HCl 2 ml 01/06/21 16:11 01/06/21 16:46 Lidocaine 1% Pf 2 Ml Sdv INJECT 01/06/21 16:12 2 ml ONETIME ONE Administration Lidocaine HCl Confirm 01/06/21 16:19 01/06/21 16:46 Lidocaine 1% 5 Ml Sdv Administered 01/06/21 16:20 Not Given Dose 5 ml .ROUTE .STK-MED ONE Lidocaine HCl 5 ml 01/06/21 16:45 01/06/21 16:46 Lidocaine 1% 5 Ml Sdv INJECT 01/06/21 16:46 5 ml ONETIME ONE Administration Sterile Water 2.5 ml 01/06/21 17:07 01/06/21 17:14 Water For Injection, Sterile 50 Ml Sdv INJECT 01/06/21 17:08 2.5 ml ONETIME ONE Administration Departure - Departure Time of Disposition: 17:29 Disposition: Home, Self-Care 01 Clinical Impression: Laceration Phalanx, hand fracture, open Qualifiers: Encounter type: initial encounter Qualified Code(s): S62.609B - Fracture of unspecified phalanx of unspecified finger, initial encounter for open fracture Avulsion of skin of finger Qualifiers: Encounter type: initial encounter Qualified Code(s): S61.209A - Unspecified open wound of unspecified finger without damage to nail, initial encounter - Discharge Information Prescriptions: Hydrocodone/Acetaminophen [HYDROcodone-Acetaminophen 5-325 MG] 1 - 2 tab PO Q4HR PRN #20 tablet PRN Reason: Pain (Moderate 4-6) cephALEXin [Keflex] 500 mg PO TID 7 Days #21 cap Instructions: Finger Fracture, Adult, [id number] Referrals: PCP,None [Primary Care Provider] - Forms: ED Department Discharge Additional Instructions: The following information is given to patients seen in the emergency department who are being discharged to home. This information is to outline your options for follow-up care. We provide all patients seen in our emergency department with a follow-up referral. The need for follow-up, as well as the timing and circumstances, are variable depending upon the specifics of your emergency department visit. If you don't have a primary care physician on staff, we will provide you with a referral. We always advise you to contact your personal physician following an emergency department visit to inform them of the circumstance of the visit and for follow-up with them and/or the need for any referrals to a consulting specialist. The emergency department will also refer you to a specialist when appropriate. This referral assures that you have the opportunity for follow-up care with a specialist. All of these measure are taken in an effort to provide you with optimal care, which includes your follow-up. Under all circumstances we always encourage you to contact your private physician who remains a resource for coordinating your care. When calling for follow-up care, please make the office aware that this follow-up is from your recent emergency room visit. If for any reason you are refused follow-up, please contact the [facility] Emergency Department at and asked to speak to the emergency department charge nurse. Dr. Machado & Dr. Carlson [facility] [address] [place] [id number] Dr. Arash Torres [facility] [address] [place] [address] [id number] [address] Br[address] [facility] [address] [facility] [phone] Thank you for choosing the [facility] emergency department in [place] for your medical needs today. It was a pleasure caring for you. Today you were seen in the emergency department for finger fracture. 1. You were evaluated today on an emergent basis. You have an open fracture and injury of the extensor tendon of your left index finger. Keep the skin clean and dry. Monitor for signs of infection. Sutures to be removed in 7-10 days. 2. You can alternate Tylenol and ibuprofen as needed for pain and fever management. [place] for moderate to severe pain. This medication may cause drowsiness, so do not take while driving or needing to be functioning outside the house. 3. You need to follow up with the Hand Surgeon, Dr Machado or Dr Carlson at [facility] in [place] in the next few days for re-evaluation and further care/management. Please call tomorrow to set up a follow up appointment. 4. If your symptoms should worsen, new symptoms develop or any of the signs and symptoms we discussed should arise please return to the emergency room or call 911 (if needed). Sepsis Event Note (ED) - Focused Exam Vital Signs: Vital Signs Temp Pulse Resp BP Pulse Ox 01/06/21 17:43 88 18 138/86 97 01/06/21 16:43 97.0 F 98 18 140/83 96
[2021-01-06] MEDS ORDERED: Acetaminophen/HYDROcodone 325-5 MG Tab PO ONE (16:57)
[2021-01-06] MEDS ORDERED: ceFAZolin 1 GM Vial IM ONE (16:57)
[2021-01-06] MEDS ORDERED: Water For Injection, Sterile 20 ML ONE (17:06)
[2021-01-06] MEDS ORDERED: Water For Injection, Sterile 50 ML SDV INJECT ONE (17:07)
--- NOTE | 2021-01-06 17:17 | CR ---
INDICATION: Trauma. Laceration with metal. TECHNIQUE: Three views of the left 2nd finger. FINDINGS: Acute nondisplaced fracture middle phalanx left 2nd finger with soft tissue swelling and a soft tissue defect compatible with laceration. On the lateral view there are 3 or 4 tiny radiodensities in the soft tissues of the dorsal aspect of the finger which could reflect tiny radiodense foreign bodies. IMPRESSION: Soft tissue defect/laceration with a few tiny probable radiodense foreign bodies mid left 2nd finger dorsally. Nondisplaced fracture middle phalanx left 2nd finger. Dictated by Ravindra Barrientos MD @ 01/06/2021 5:15:[address] Ravindra Barrientos @ Jan 06 2021 5:15PM
[2021-01-06 17:52] VITALS: BP 138/86; PULSE 88
== END 2021-01-06 17:53 | disposition home or self-care (01) ==
LOC: MW.ED 16:04
DX: S62.651B Nondisplaced fracture of middle phalanx of left index finger, initial encounter for open fracture (principal); E66.9 Obesity, unspecified; Z91.018 Allergy to other foods; Z79.82 Long term (current) use of aspirin; W20.8XXA Other cause of strike by thrown, projected or falling object, initial encounter
CPT/HCPCS: 12002; 73140; 96372; 99283; A9270; J0690

== ENCOUNTER 2022-03-27 15:06 | Emergency (ER) | payer OTHER ==
[2022-03-27 15:39] VITALS: BP 123/83
[2022-03-27] MEDS ORDERED: Erythromycin Base 0.5% Ophth Oint 1 GM Tube EYEBOTH ONE (15:45)
[2022-03-27] MEDS ORDERED: Tetracaine HCl/PF 0.5% 4 ML Bottle EYEBOTH ONE (15:45)
[2022-03-27 16:42] VITALS: PULSE 83
== END 2022-03-27 16:39 | disposition home or self-care (01) ==
LOC: MW.ED 15:06
DX: S05.02XA Injury of conjunctiva and corneal abrasion without foreign body, left eye, initial encounter (principal); E66.9 Obesity, unspecified; Z68.29 Body mass index [BMI] 29.0-29.9, adult; Z91.018 Allergy to other foods; Z79.899 Other long term (current) drug therapy; W22.8XXA Striking against or struck by other objects, initial encounter
CPT/HCPCS: 99283; A9270

== ENCOUNTER 2023-02-21 23:37 | Emergency (ER) | payer BC, OTHER ==
[2023-02-21] MEDS ORDERED: Aspirin 81 MG Tab.Chew PO ONE (23:50)
[2023-02-21] MEDS ORDERED: Alum Hydro/Mag Hydro/Simeth XS 15 ML, Lidocaine 2% 5 ML PO ONE ×2 (23:50)
[2023-02-22] MEDS ORDERED: Sodium Chloride 0.9% 1,000 ML IV ONE (00:09)
[2023-02-22 00:21] LABS: BASOPHILS ABSOLUTE AUTO 0.03 K/uL (0.00-0.20); BASOPHILS PERCENT AUTO 0.3 % (0.0-1.0); EOSINOPHILS ABSOLUTE AUTO 0.08 K/uL (0.00-0.45); EOSINOPHILS PERCENT AUTO 0.9 % (0.0-6.0); HEMATOCRIT 44.2 % (42.0-52.0); HEMOGLOBIN 15.8 g/dL (14.0-18.0); IMMATURE GRAN ABSOLUTE AUTO 0.02 K/uL (0.00-0.05); IMMATURE GRAN PERCENT AUTO 0.2 % (0.0-0.4); LYMPHOCYTES ABSOLUTE AUTO 2.59 K/uL (1.00-4.80); LYMPHOCYTES PERCENT AUTO 28.6 % (24.0-44.0); MEAN CORPUSCULAR HEMOGLOBIN 31.3 pg (28.0-32.0); MEAN CORPUSCULAR HGB CONC 35.7 g/dL (32.0-36.0); MEAN CORPUSCULAR VOLUME 87.5 fL (83.0-99.0); MEAN PLATELET VOLUME 10.1 fL (9.4-12.4); MONOCYTES ABSOLUTE AUTO 0.44 K/uL (0.00-0.80); MONOCYTES PERCENT AUTO 4.9 % (0.0-8.0); NEUTROPHILS ABSOLUTE AUTO 5.9 K/uL (1.8-7.7); NEUTROPHILS PERCENT AUTO 65.1 % (41.0-71.0); PLATELET COUNT,PLT 210 K/uL (150-400); RED BLOOD CELL COUNT 5.05 M/uL (4.52-5.90); WHITE BLOOD CELL COUNT,WBC 9.05 K/uL (3.9-11.3)
[2023-02-22 00:25] LABS: A/G RATIO 1.3 (0.9-1.6); ALBUMIN 4.3 g/dL (3.4-5.0); CALCIUM 8.7 mg/dL (8.5-10.1); EST CRCL DRUG DOSING (CG) 94.29 mL/min; POTASSIUM,K 3.3 mmol/L (3.5-5.1); PROTEIN TOTAL,TP 7.7 g/dL (6.4-8.2)
[2023-02-22] MEDS ORDERED: Potassium Chloride 20 MEQ Tab.ER PO ONE (00:41)
[2023-02-22] MEDS ORDERED: LORazepam 0.5 MG Tab PO ONE (01:35)
[2023-02-22 02:10] VITALS: BP 110/71; PULSE 89
== END 2023-02-22 02:15 | disposition home or self-care (01) ==
LOC: MW.ED 23:37
DX: R07.9 Chest pain, unspecified (principal); E66.9 Obesity, unspecified; Z91.014 Allergy to mammalian meats
CPT/HCPCS: 36415; 71045; 80053; 83690; 83735; 84484; 85025; 93005; 96360; 99285; A9270; J7030; 93010; 99283

== ENCOUNTER 2024-03-06 10:45 | Day surgery (SDC) | payer BC ==
[2024-03-06] MEDS ORDERED: propofoL 50 ML ONE (10:58)
[2024-03-06] MEDS: Lactated Ringers 1,000 ML IV SCH (11:19)
[2024-03-06 12:52] VITALS: BP 115/77; PULSE 71
[2024-03-06] MEDS ORDERED: Lactated Ringers 1,000 ML IV SCH (13:00)
== END 2024-03-06 13:00 | disposition home or self-care (01) ==
LOC: MW.SDS 10:45
PROVIDERS: ATTEND Surgery
DX: Z12.11 Encounter for screening for malignant neoplasm of colon (principal); D12.4 Benign neoplasm of descending colon; E66.9 Obesity, unspecified; F17.210 Nicotine dependence, cigarettes, uncomplicated; Z79.899 Other long term (current) drug therapy; Z68.32 Body mass index [BMI] 32.0-32.9, adult; Z91.018 Allergy to other foods
CPT/HCPCS: 45380; J2704; J7120; 00811